=== PATIENT | male | born 1965 | race Caucasian/White ===

== ENCOUNTER 2018-05-09 23:14 | Emergency (ER) | payer OTHER ==
--- OUTSIDE RECORDS SUMMARY | 2018-05-09 23:16 | XMS REPORT | Clinical Summary ---
:1965 Author Organization [facility] Address [address] [place] [address] Phone Care Team Providers Name Role Phone Unavailable Primary Care Provider Unavailable Allergies Active Allergy Reactions Severity Noted Date Comments Naproxen Sodium Swelling 02/05/2016 Lips Current Medications Prescription Sig. Disp. Refills Start Date End Date Status carvedilol (COREG) Take 25 mg by Active 25 MG mouth 2 (two) tabletIndications: times daily with hypertension breakfast and dinner. lisinopril Take 20 mg by Active (PRINIVIL,ZESTRIL) mouth daily. 20 MG tabletIndications: hypertension furosemide (LASIX) Take 20 mg by Active 20 MG tablet mouth daily. doxycycline Take 100 mg by Active (VIBRAMYCIN) 100 MG mouth 2 (two) capsule times daily. tamsulosin (FLOMAX) Take 1 capsule 15 capsule 0 04/21/2017 Active 0.4 mg Cp24 24 hr (0.4 mg total) capsule by mouth nightly. senna-docusate Take 1 tablet by 60 tablet 0 04/17/2017 05/17/2017 (SENOKOT S) 8.6-50 mouth 2 (two) mg per tablet times daily for 30 days. Active Problems Problem Noted Date Complicated UTI (urinary tract infection) 04/16/2017 Obstruction of left ureteropelvic junction due to stone 04/16/2017 Obstructive uropathy 03/22/2016 SANTOS (acute kidney injury) (HCC) 02/06/2016 Renal stone 02/06/2016 Hydronephrosis 02/06/2016 HTN (hypertension) 02/06/2016 Septic shock (HCC) 02/05/2016 Social History Tobacco Use Types Packs/Day Years Used Date Never Smoker Smokeless Tobacco: Never Used Tobacco Cessation: Counseling Given: Yes Alcohol Use Drinks/Week oz/Week Comments Yes occasionally Sex Assigned at Date Recorded Not on file Last Filed Vital Signs Not on file Plan of Treatment Not on file Implants Implanted Type Area Library Page Device Expiration Model / Identifier Date Serial / Lot Stent Uret Ult Johnny [id number] [id number] - [id number] Stents-Pe Left: BOSTON 192-133 / Implanted: Qty: 1 on 04/01/2016 by John Guillen MD [facility] [employer] SCI:UROLOGY/GYNE / COLOGY [id number] Set Stent Injection 6x28cm 185-615 - [id number] Uro Stent Left: BOSTON 09/2019 [id number] / Implanted: Qty: 1 on 04/21/2017 by John Guillen MD [employer]: ONCOLOGY / [id number] Results Not on fileafter 05/08/2017
--- OUTSIDE RECORDS SUMMARY | 2018-05-09 23:16 | XMS REPORT | Clinical Summary ---
:1965 Author Organization [facility] Address [address] [place] [address] Care Team Providers Name Role Phone Baldev Olmos MD Primary Care Provider Unavailable Allergies Not on File Current Medications Prescription Sig. Disp. Refills Start Date End Date Status carvedilol (COREG) 12.5 MG Take 12.5 mg by Active tablet mouth 2 (two) times a day with meals. furosemide (LASIX) 20 MG Take 20 mg by Active tablet mouth 2 (two) times a day. lisinopril Take 10 mg by Active (PRINIVIL,ZESTRIL) 10 MG mouth daily. tablet meloxicam (MOBIC) 15 MG Take 15 mg by Active tablet mouth daily. Active Problems Not on file Social History Tobacco Use Types Packs/Day Years Used Date Unknown If Ever Smoked Alcohol Use Drinks/Week oz/Week Comments Defer Sex Assigned at Date Recorded Not on file Last Filed Vital Signs Not on file Plan of Treatment Health Maintenance Due Date Last Done Comments COLON CANCER SCREENING 2015 SHINGRIX VACCINE (#1) 2015 INFLUENZA VACCINE 05/12/2018 Results Not on fileafter 05/08/2017 Insurance Payer Benefit Plan / Group Subscriber ID Type Phone Address MEDICARE MEDICARE PART A AND B xxxxxxxxxx Medicare [place], [place] [facility] [phone] [address]
--- OUTSIDE RECORDS SUMMARY | 2018-05-09 23:16 | XMS REPORT ---
:1965 Author Organization eClinicalWorks Care Team Providers Name Role Phone Matilde Valencia Provider Role Unavailable Allergies, Adverse Reactions, Alerts Substance Reaction Event Type N.K.D.A. Info Not Available Non Drug Allergy Problems Problem Type Condition Code Onset Dates Condition Status Problem Hyperglycemia R73.9 Active Problem Hypertension, unspecified type I10 Active Problem Abnormal urine R82.90 Active Problem Obstructive sleep apnea G47.33 Active Assessment Peripheral edema R60.9 Active Problem Kidney stones N20.0 Active Assessment Prediabetes R73.03 Active Assessment Hyperlipidemia, unspecified E78.5 Active hyperlipidemia type Problem Skin lesion L98.9 Active Problem Hyperlipidemia, unspecified E78.5 Active hyperlipidemia type Problem Prediabetes R73.03 Active Problem Peripheral edema R60.9 Active Problem Elevated serum creatinine R79.89 Active Assessment Skin lesion L98.9 Active Assessment Kidney stones N20.0 Active Assessment Elevated serum creatinine R79.89 Active Assessment Hypertension, unspecified type I10 Active Problem Pain in right knee M25.561 Active Problem Hypokalemia E87.6 Active Problem Pain in left knee M25.562 Active Problem Hypertriglyceridemia E78.1 Active Assessment Obstructive sleep apnea G47.33 Active Problem Other chronic pain G89.29 Active Problem 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 Medications Medication Code Code Instructions Start End Status Dosage System Date Date Furosemide [facility] 27729234523 20 mg Orally Active 1 tablet as Once a day needed for swelling Mobic [facility] 53118322664 7.5 MG Orally Active 1 tablet Once a day Coreg [facility] 15254079231 25 MG Orally Active not defined Twice a day Belviq [facility] 09803356581 10 MG Orally Active 1 tablet Twice a day Lisinopril [facility] 23821762041 20 MG Active TAKE ONE TABLET BY MOUTH ONCE DAILY Gabapentin [facility] 53855703044 300 MG Orally Active 1 capsule Three times a day Ibuprofen [facility] 46672450719 400 MG Orally Active 1 tablet Three times a with food day or milk as needed Multivitamin [facility] 97806459114 - Orally Active not defined Lamisil [facility] 04769262315 250 MG Orally Active 1 tablet Once a day Results No Known Results Summary Purpose eClinicalWorks Submission
--- OUTSIDE RECORDS SUMMARY | 2018-05-09 23:17 | XMS REPORT ---
:1965 Author Organization eClinicalWorks Care Team Providers Name Role Phone Royer Valenciaen Provider Role Unavailable Allergies No Known Allergies Problems Problem Type Condition Code Onset Dates Condition Status Problem Hyperlipidemia, unspecified E78.5 Active hyperlipidemia type Problem Prediabetes R73.03 Active Problem Elevated serum creatinine R79.89 Active Problem Chronic kidney disease, unspecified N18.9 Active CKD stage Problem Pain in left knee M25.562 Active Problem Dependence on CPAP ventilation Z99.89 Active Problem Pain in right knee M25.561 Active Problem Other chronic pain G89.29 Active Problem Uncontrolled type 2 diabetes E11.65 Active mellitus without complication, without long-term current use of insulin Problem Morbid (severe) obesity due to E66.01 Active excess calories Problem Body mass index (BMI) of 40.0-44.9 Z68.41 Active in adult Problem Morbid obesity E66.01 Active Problem Obstructive sleep apnea (adult) G47.33 Active (pediatric) Problem Hypokalemia E87.6 Active Problem Hypertriglyceridemia E78.1 Active Problem Abnormal urine R82.90 Active Problem Hyperglycemia R73.9 Active Problem Obstructive sleep apnea G47.33 Active Problem Skin lesion L98.9 Active Problem 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
--- OUTSIDE RECORDS SUMMARY | 2018-05-09 23:17 | XMS REPORT ---
:1965 Author Organization [employer]Works Care Team Providers Name Role Phone Matilde Valencia Provider Role Unavailable Allergies, Adverse Reactions, Alerts Substance Reaction Event Type N.K.D.A. Info Not Available Non Drug Allergy Problems Problem Type Condition Code Onset Dates Condition Status Assessment Uncontrolled type 2 diabetes E11.65 Active mellitus without complication, without long-term current use of insulin Assessment Colon cancer screening Z12.11 Active Problem Peripheral edema R60.9 Active Assessment Well adult exam Z00.00 Active Problem Kidney stones N20.0 Active Problem Hyperlipidemia, unspecified E78.5 Active hyperlipidemia type Problem Prediabetes R73.03 Active Problem Elevated serum creatinine R79.89 Active Problem Chronic kidney disease, unspecified N18.9 Active CKD stage Problem Dependence on CPAP ventilation Z99.89 Active Problem Pain in left knee M25.562 Active Problem Pain in right knee M25.561 Active Problem Uncontrolled type 2 diabetes E11.65 Active mellitus without complication, without long-term current use of insulin Problem Other chronic pain G89.29 Active Problem Morbid (severe) obesity due to E66.01 [...] L98.9 Active Problem 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 Problem Hypertension, unspecified type I10 Active Medications Medication Code Code Instructions Start End Status Dosage System Date Date Metformin HCl [facility] 42946048498 500 MG Orally April 21, Active 1 tablet Twice daily 2017 with a meal; for diabetes Coreg ND 95805434236 25 MG Orally Active not defined Twice a day Multivitamin [facility] 30695013508 - Orally Active not defined Cardura [facility] 22496995819 1 MG Orally Selena 15, Active 1 tablet in Once a day 2018 evening for high blood pressure Belviq [facility] 85151735248 10 MG Orally Active 1 tablet Twice a day Furosemide ND 96143176395 20 mg Orally Active 1 tablet as Once a day needed for swelling Gabapentin ND 46535619052 300 MG Orally Active 1 capsule Three times a day Mobic [facility] 04257943705 7.5 MG Orally Active 1 tablet Once a day Ibuprofen ND 41922760636 400 MG Orally Active 1 tablet Three times a with food or day milk as needed Blood Glucose NDC 0 as directed April 21, Active as directed Test Strip Test BS once 2018 (DISPENSE daily BLOOD GLUCOSE TEST STRIPS FORMULARY TO INSURANCE) Lamisil [facility] 26863503213 250 MG Orally Active 1 tablet Once a day Blood Glucose NDC 0 as directed April 21, Active as directed Monitor Test BS once 2018 (DISPENSE daily BLOOD GLUCOSE MONITOR FORMULARY TO INSURANCE) Lancets [facility] 46233865461 - as directed April 21, Active as directed Test BS once 2018 (dispense daily lancets formulary to insurance) Results Name Result Date Reference Range Unit Abnormality Flag OCCULT (Guiac) BLOOD (ONE SPECIMEN) ----Occult Blood Negative [id number] Summary Purpose eClinicalWorks Submission
--- OUTSIDE RECORDS SUMMARY | 2018-05-09 23:17 | XMS REPORT ---
:1965 Author Organization [facility] Address [address] [place] [address] [address] [place] [address] Care Team Providers Name Role Phone MICAH BOSWELL Unavailable Unavailable Problems This patient has no known problems. Allergies, Adverse Reactions, Alerts This patient has no known allergies or adverse reactions. Medications This patient has no known medications. Results Test Description Test Time Test Comments Text Results Atomic Results Result Comments BLOOD CULTURE 2017-04-22 00:00:00 Test Item Value Reference Range Comments CULTURE (BEAKER) (test sdra=7541) No growth in 5 days BLOOD [id number] 00:00:00 Test Item Value Reference Range Comments CULTURE (BEAKER) (test xqhm=6103) No growth in 5 days HEMOGLOBIN [id number] 21:56:00 Test Item Value Reference Range Comments HEMOGLOBIN A1C (BEAKER) (test qfml=943) 6.7 % 4.3-6.1 T4, [id number] 12:30:00 Test Item Value Reference Range Comments FREE T4 (BEAKER) (test imkw=086) 0.74 ng/dL 0.70-1.48 TSH/FREE T4 IF [id number] 05:46:00 Test Item Value Reference Range Comments THYROID STIMULATING HORMONE (BEAKER) (test 5.17 uIU/mL 0.35-4.94 ghse=492) [id number] 05:37:00 Test Item Value Reference Range Comments FERRITIN (BEAKER) (test eqig=875) 79 ng/mL 5-275 Effective 08/29/2014: Reference Range ChangeNew: Male 5-275 Previous: Male 22-322 Female 5-275 Female [id number] NATRIURETIC FACTOR ( BNP)2017-04-17 05:22:00 Test Item Value Reference Range Comments B-TYPE NATRIURETIC PEPTIDE (BEAKER) (test qkfw=768) 23 pg/mL 0-100 IRON, TIBC, % SAT. (WITHOUT FERRITIN)2017-04-17 05:17:00 Test Item Value Reference Range Comments IRON (BEAKER) (test gmcd=739) 78 ug/dL 40-160 TOTAL IRON BINDING CAPACITY (BEAKER) (test 329 ug/dL 250-450 bekc=987) IRON % SATURATION (2) (BEAKER) (test loau=8317) 24 % 20-55 LIPID [id number] 05:12:00 Test Item Value Reference Range Comments TRIGLYCERIDES (BEAKER) (test roiv=713) 259 mg/dL CHOLESTEROL (BEAKER) (test ccmq=010) 214 mg/dL HDL CHOLESTEROL (BEAKER) (test hykm=789) 27 mg/dL LDL CHOLESTEROL CALCULATED (BEAKER) (test 135 mg/dL nduc=198) Triglyceride Reference Range: Low Risk <150 Borderline 150- 199 High Risk 200-499 Very High Risk >=500Cholesterol Reference Range: Low Risk <200 Borderline 200-239 High Risk > 240HDL Cholesterol Reference Range: Low Risk >=60 High Risk <40LDL Cholesterol Reference Range: Optimal <100 Near Optimal 100-129 Borderline 130-159 High 160-189 Very High >=190URINALYSIS W/ REFLEX URINE [id number] 00:32:00 Test Item Value Reference Range Comments COLOR (BEAKER) (test clmd=048) Yellow CLARITY (BEAKER) (test ijng=040) Clear SPECIFIC GRAVITY UA (BEAKER) (test qqns=828) 1.019 1.001-1.035 PH UA (BEAKER) (test nceq=360) 5.5 5.0-8.0 PROTEIN UA (BEAKER) (test mhjm=800) 30 mg/dL Negative GLUCOSE UA (BEAKER) (test qocd=213) Negative Negative KETONES UA (BEAKER) (test tpag=288) Negative Negative BILIRUBIN UA (BEAKER) (test vkxb=757) Negative Negative BLOOD UA (BEAKER) (test lhvw=880) Trace Negative NITRITE UA (BEAKER) (test jbqj=824) Positive Negative LEUKOCYTE ESTERASE UA (BEAKER) (test bbzc=752) Moderate Negative UROBILINOGEN UA (BEAKER) (test vttp=075) 0.2 mg/dL 0.2-1.0 RBC UA (BEAKER) (test zjko=597) 6 /HPF WBC UA (BEAKER) (test wcgn=012) 57 /HPF MUCUS (BEAKER) (test sgxt=8916) Rare SOURCE(BEAKER) (test xjvu=4113) [id number] 22:20:00 Test Item Value Reference Range Comments PROTIME (BEAKER) (test chrt=765) 13.5 seconds 11.7-14.7 INR (BEAKER) (test czhl=203) 1.0 <=5.9 PARTIAL THROMBOPLASTIN TIME (BEAKER) (test 28.5 seconds 22.5-36.0 ccse=037) RECOMMENDED COUMADIN/WARFARIN INR THERAPY RANGESSTANDARD DOSE: 2.0 - 3.0 Includes: PROPHYLAXIS forvenous thrombosis, systemic embolization; TREATMENT for venous thrombosis and/or pulmonary embolus.HIGH RISK: Target INR is 2.5-3.5 for patients with mechanical heart valves.[id number] 22:18:00 Test Item Value Reference Range Comments MAGNESIUM (BEAKER) (test dzae=611) 1.7 mg/dL 1.6-2.6 BASIC METABOLIC [id number] 22:18:00 Test Item Value Reference Range Comments SODIUM (BEAKER) (test 138 meq/L 136-145 bpgr=205) POTASSIUM (BEAKER) (test 4.0 meq/L 3.5-5.1 gsqz=287) CHLORIDE (BEAKER) (test 105 meq/L 98-107 nfaw=684) CO2 (BEAKER) (test 25 meq/L 22-29 tbwn=527) BLOOD UREA NITROGEN 23 mg/dL 7-21 (BEAKER) (test ezfv=347) CREATININE (BEAKER) (test 0.90 mg/dL 0.57-1.25 ocjf=356) GLUCOSE RANDOM (BEAKER) 130 mg/dL 70-105 (test oiwg=606) CALCIUM (BEAKER) (test 8.9 mg/dL 8.4-10.2 frph=510) EGFR (BEAKER) (test 89 mL/min/1.73 sq m ESTIMATED GFR IS NOT axvl=0849) ACCURATE CREATININE CLEARANCE IN PREDICTING GLOMERULAR FILTRATION RATE. ESTIMATED GFR IS NOT APPLICABLE FOR DIALYSIS PATIENTS. HEPATIC FUNCTION [id number] 22:18:00 Test Item Value Reference Range Comments TOTAL PROTEIN (BEAKER) (test dtug=533) 7.2 gm/dL 6.0-8.3 ALBUMIN (BEAKER) (test cicg=9537) 3.8 g/dL 3.5-5.0 BILIRUBIN TOTAL (BEAKER) (test imod=781) 0.5 mg/dL 0.2-1.2 BILIRUBIN DIRECT (BEAKER) (test tjuo=214) 0.2 mg/dL 0.1-0.5 ALKALINE PHOSPHATASE (BEAKER) (test istw=181) 81 U/L 40-150 AST (SGOT) (BEAKER) (test yzat=456) 20 U/L 5-34 ALT (SGPT) (BEAKER) (test etfs=448) 22 U/L 6-55 CBC W/PLT COUNT & AUTO [id number] 22:12:00 Test Item Value Reference Range Comments WHITE BLOOD CELL COUNT (BEAKER) (test pkez=802) 9.6 K/ L 4.0-10.0 RED BLOOD CELL COUNT (BEAKER) (test xigu=862) 4.54 M/ L 4.20-5.80 HEMOGLOBIN (BEAKER) (test qnmp=689) 14.5 GM/DL 13.0-16.8 HEMATOCRIT (BEAKER) (test ivfy=757) 44.2 % 40.0-50.0 MEAN CORPUSCULAR VOLUME (BEAKER) (test mbfq=127) 97.3 fL 82.0-98.0 MEAN CORPUSCULAR HEMOGLOBIN (BEAKER) (test 32.0 pg 27.0-33.0 vqgc=317) MEAN CORPUSCULAR HEMOGLOBIN CONC (BEAKER) (test 32.9 GM/DL 32.0-36.0 souu=271) RED CELL DISTRIBUTION WIDTH (BEAKER) (test 12.1 % 10.3-14.2 dmre=768) PLATELET COUNT (BEAKER) (test tiwb=921) 214 K/CU MM 150-430 MEAN PLATELET VOLUME (BEAKER) (test vwmv=536) 7.9 fL 6.5-10.5 NUCLEATED RED BLOOD CELLS (BEAKER) (test 0 /100 WBC 0-0 bnnd=493) NEUTROPHILS RELATIVE PERCENT (BEAKER) (test 66 % ovhp=930) LYMPHOCYTES RELATIVE PERCENT (BEAKER) (test 19 % frbr=388) MONOCYTES RELATIVE PERCENT (BEAKER) (test 6 % bndj=347) EOSINOPHILS RELATIVE PERCENT (BEAKER) (test 9 % jhjc=382) BASOPHILS RELATIVE PERCENT (BEAKER) (test 0 % mysm=652) NEUTROPHILS ABSOLUTE COUNT (BEAKER) (test 6.32 K/ L 1.80-8.00 kvdf=505) LYMPHOCYTES ABSOLUTE COUNT (BEAKER) (test 1.80 K/ L 1.48-4.50 dycj=858) MONOCYTES ABSOLUTE COUNT (BEAKER) (test 0.62 K/ L 0.00-1.30 xprq=950) EOSINOPHILS ABSOLUTE COUNT (BEAKER) (test 0.86 K/ L 0.00-0.50 swry=525) BASOPHILS ABSOLUTE COUNT (BEAKER) (test 0.02 K/ L 0.00-0.20 qqqv=259) 0.00
--- OUTSIDE RECORDS SUMMARY | 2018-05-09 23:17 | XMS REPORT ---
:1965 Author Organization eClinicalWorks Care Team Providers Name Role Phone Matilde Valencia Provider Role Unavailable Allergies No Known Allergies Problems Problem Type Condition Code Onset Dates Condition Status Assessment Body mass index (BMI) of 40.0-44.9 Z68.41 Active in adult Assessment Morbid (severe) obesity due to E66.01 Active excess calories Assessment Dependence on CPAP ventilation Z99.89 Active Assessment Obstructive sleep apnea (adult) G47.33 Active (pediatric) Assessment Hyperlipidemia, unspecified E78.5 Active hyperlipidemia type Assessment Prediabetes R73.03 Active Assessment Peripheral edema R60.9 Active Problem Peripheral edema R60.9 Active Assessment Chronic kidney disease, unspecified N18.9 Active CKD stage Problem Kidney stones N20.0 Active Assessment Hypertension, unspecified type I10 Active Problem Hyperlipidemia, unspecified E78.5 Active hyperlipidemia type Problem Prediabetes R73.03 Active Problem Elevated serum creatinine R79.89 Active Problem Obstructive sleep apnea (adult) G47.33 Active (pediatric) Problem Morbid (severe) obesity due to E66.01 Active excess calories Problem Pain in right knee M25.561 Active Problem Other chronic pain G89.29 Active Problem Morbid obesity E66.01 Active Assessment Hives L50.9 Active Problem Dependence on CPAP ventilation Z99.89 Active Problem Hypertension, unspecified type I10 Active Problem Body mass index (BMI) of 40.0-44.9 Z68.41 Active in adult Problem Chronic kidney disease, unspecified N18.9 Active CKD stage Problem Hyperglycemia R73.9 Active Problem Hypokalemia E87.6 Active Problem Pain in left knee M25.562 Active Problem Abnormal urine R82.90 Active Problem Obstructive sleep apnea G47.33 Active Problem Skin lesion L98.9 Active Problem Hypertriglyceridemia E78.1 Active Problem 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 Medications Medication Code Code Instructions Start End Status Dosage System Date Date Mobic ND 01435982740 7.5 MG Orally Active 1 tablet Once a day Ibuprofen NDC 01037497351 400 MG Orally Active 1 tablet Three times a with food day or milk as needed Cardura [facility] 00701670330 1 MG Orally March 26, Active 1 tablet in Once a day 2017 evening for high blood pressure Lisinopril [facility] 92918744673 20 MG Inactive TAKE ONE TABLET BY MOUTH ONCE DAILY Multivitamin [facility] 41249410211 - Orally Active not defined Lamisil [facility] 07697452434 250 MG Orally Active 1 tablet Once a day Gabapentin [facility] 93472879725 300 MG Orally Active 1 capsule Three times a day Furosemide [facility] 40069886419 20 mg Orally Active 1 tablet as Once a day needed for swelling Coreg [facility] 28564742563 25 MG Orally Active not defined Twice a day Belviq [facility] 92886258423 10 MG Orally Active 1 tablet Twice a day Results No Known Results Summary Purpose eClinicalWorks Submission
[2018-05-09] MEDS ORDERED: METHYLPREDNISOLONE 125 MG INJ ONE (23:39)
[2018-05-09] MEDS ORDERED: ALBUTEROL 2.5 MG/3 ML NEB SOL ONE (23:39)
[2018-05-09] MEDS ORDERED: FAMOTIDINE 20 MG/2 ML VIAL IV ONE (23:40)
[2018-05-10 00:14] LABS: Absolute Lymphocytes (CBC) 2.7 K/uL (0.7-4.9); Absolute Monocytes 0.6 K/uL (0.1-1.3); Absolute Neutrophil 5.3 K/uL (1.8-8.0); Basophils % 1.1 % (0-1.3); Eosinophils % 8.1 % (0-4.4); Hematocrit 42.8 % (39.6-49.0); Lymphocytes % 28.2 % (15.3-44.8); MCH 31.2 pg (27.0-35.0); MCV 92.2 fL (80-100); Monocytes % 6.8 % (3.3-12.3); RBC Red Blood Cell Count 4.64 M/uL (4.33-5.43)
[2018-05-10 00:23] LABS: Potassium 3.6 mmol/L (3.5-5.1)
--- NOTE | 2018-05-10 01:20 | EDPHYS ---
Physician Documentation [facility] Name: Abebe Marquez Age: 52 yrs Sex: Male : 1965 Arrival Date: 05/09/2018 Time: 23:17 Bed 2 Private MD: ED Physician Rip Rashid HPI: 05/10 00:59 This 52 yrs old Male presents to ER via EMS with complaints of Allergic gs Reaction. 00:59 The patient presents with chest pain, difficulty swallowing, rash, redness of skin. gs Onset: The symptoms/episode began/occurred acutely, 2 hour(s) ago. Associated signs and symptoms: Pertinent positives: chest pain, dysphagia. Historical: - Allergies: 05/09 23:26 Aleve; fc - Home Meds: 23:26 carvedilol 25 mg Oral tab 1 tab every 12 hours [Active]; furosemide 20 mg Oral tab 1 fc tab 2 times per day [Active]; meloxicam 7.5 mg Oral tab 1-2 tabs PRN [Active]; - PMHx: 23:26 Hypertension; Kidney stones; Atrial Fib; swelling of legs; fc - PSHx: 23:26 kidney surg; fc - Immunization history:: Last tetanus immunization: up to date. - Social history:: Smoking status: Patient/guardian denies using tobacco. - Ebola Screening: : Patient negative for fever greater than or equal to 101.5 degrees Fahrenheit, and additional compatible Ebola Virus Disease symptoms Patient denies exposure to infectious person Patient denies travel to an Ebola-affected area in the 21 days before illness onset. ROS: 05/10 01:12 All other systems are negative. gs Exam: 01:12 Head/Face: Normocephalic, atraumatic. Eyes: Pupils equal round and reactive to light, gs extra-ocular motions intact. Lids and lashes normal. Conjunctiva and sclera are non-icteric and not injected. Cornea within normal limits. Periorbital areas with no swelling, redness, or edema. 01:12 Neck: Trachea midline, no thyromegaly or masses palpated, and no cervical lymphadenopathy. Supple, full range of motion without nuchal rigidity, or vertebral point tenderness. No Meningismus. Chest/axilla: Normal chest wall appearance and motion. Nontender with no deformity. No lesions are appreciated. Cardiovascular: Regular rate and rhythm with a normal S1 and S2. No gallops, murmurs, or rubs. Normal PMI, no JVD. No pulse deficits. 01:12 Abdomen/GI: Soft, non-tender, with normal bowel sounds. No distension or tympany. No guarding or rebound. No evidence of tenderness throughout. Back: No spinal tenderness. No costovertebral tenderness. Full range of motion. MS/ Extremity: Pulses equal, no cyanosis. Neurovascular intact. Full, normal range of motion. Neuro: Awake and alert, GCS 15, oriented to person, place, time, and situation. Cranial nerves II-XII grossly intact. Motor strength 5/5 in all extremities. Sensory grossly intact. Cerebellar exam normal. Normal gait. 01:12 Constitutional: The patient appears alert, awake. 01:12 ENT: Voice: mild. 01:12 ECG was reviewed by the Attending Physician. 01:12 Respiratory: the patient does not display signs of respiratory distress, Respirations: normal, Breath sounds: are clear throughout, stridor, is not appreciated. 01:12 Skin: rash a mild rash is noted, rash can be described as erythematous, diffuse. Vital Signs: 05/09 23:17 BP 134 / 80; Pulse 69; Resp 20; Temp 97.6(O); Pulse Ox 92% on R/A; Weight 127.01 kg fc (R); Height 5 ft. 11 in. (180.34 cm) (R); Pain 0/10; 05/10 00:07 BP 126 / 66; Pulse 62; Resp 18; Pulse Ox 94% on 2 lpm NC; Pain 0/10; aa1 01:08 BP 134 / 84; Pulse 60; Resp 16; Pulse Ox 94% on 2 lpm NC; Pain 0/10; aa1 05/09 23:17 Body Mass Index 39.05 (127.01 kg, 180.34 cm) MDM: 05/09 23:23 Patient medically screened. 05/10 01:12 Differential diagnosis: anaphylaxis, angioedema, bronchospasm, mi. Data reviewed: vital signs, nurses notes. Response to treatment: the patient's symptoms have markedly improved after treatment, voice hoarseness resolved. 05/09 23:26 Order name: Basic Metabolic Panel; Complete Time: 00:56 05/09 23:26 Order name: CBC with Diff; Complete Time: 00:56 05/09 23:26 Order name: Troponin (emerg Dept Use Only); Complete Time: 00:56 05/09 23:26 Order name: XRAY Chest (1 view) 05/09 23:26 Order name: EKG; Complete Time: 23:27 05/09 23:26 Order name: Cardiac monitoring; Complete Time: 23:31 05/09 23:26 Order name: EKG - Nurse/Tech; Complete Time: 00:10 05/09 23:26 Order name: IV Saline Lock; Complete Time: : 05/09 23:26 Order name: Labs collected and sent; Complete Time: 00:10 05/09 23:26 Order name: O2 Per Protocol; Complete Time: 05/09 23: Order name: O2 Sat Monitoring; Complete Time: : EC:12 Rate is 61 beats/min. Rhythm is regular. AR interval is normal. QRS interval is gs prolonged. T waves are Normal. No ST changes noted. Clinical impression: Abnormal EKG without significant change. Interpreted by me. Administered Medications: 05/09 23:38 Drug: Albuterol 2.5 mg Route: Inhalation; aa1 23:38 Drug: SOLU-Medrol 125 mg Route: IVP; Site: right antecubital; aa1 23:38 Drug: Pepcid 20 mg Route: IVP; Site: right antecubital; aa1 Disposition: 05/10/18 01:19 Discharged to Home. Impression: acute allergic reaction. - Condition is Stable. - Discharge Instructions: Allergy Skin Testing. - Prescriptions for Pepcid 20 mg Oral Tablet - take 1 tablet by ORAL route every 12 hours for 5 days; 10 tablet. Prednisone 20 mg Oral Tablet - take 1 tablet by ORAL route once daily for 5 days; 5 tablet. - Medication Reconciliation Form, Thank You Letter, Antibiotic Education, Prescription Opioid Use form. - Follow up: Emergency Department; When: 1 - 2 days; Reason: Re-evaluation by your physician. Signatures: Dispatcher [employer] EDMS Jacquelin Cohen RN RN aa1 Nory Todd RN RN fc Starr, Gregory, MD MD Corrections: (The following items were deleted from the chart) 05/10 01:18 01:12 Abdomen/GI: Soft, non-tender, with normal bowel sounds. No distension or tympany. gs No guarding or rebound. No evidence of tenderness throughout. Back: No spinal tenderness. No costovertebral tenderness. Full range of motion. Skin: Warm, dry with normal turgor. Normal color with no rashes, no lesions, and no evidence of cellulitis. MS/ Extremity: Pulses equal, no cyanosis. Neurovascular intact. Full, normal range of motion. Neuro: Awake and alert, GCS 15, oriented to person, place, time, and situation. Cranial nerves II-XII grossly intact. Motor strength 5/5 in all extremities. Sensory grossly intact. Cerebellar exam normal. Normal gait. 01:36 01:19 05/10/2018 01:19 Discharged to Home. Impression: acute allergic reaction. aa1 Condition is Stable. Forms are Medication Reconciliation Form, Thank You Letter, Antibiotic Education, Prescription Opioid Use. Follow up: Emergency Department; When: 1 - 2 days; Reason: Re-evaluation by your physician.
--- NOTE | 2018-05-10 01:20 | ER ---
Nurse's Notes [facility] Name: Abebe Marquez Age: 52 yrs Sex: Male : 1965 Arrival Date: 05/09/2018 Time: 23:17 Bed 2 Private MD: Diagnosis: acute allergic reaction Presentation: 05/09 23:17 Presenting complaint: EMS states: that they were toned for allergic reaction. Pt has fc been having outward hives on and off for approx 3 month; has been treated by multiple drs and they still are not sure what is causing the problem. Tonight pt started to feel the hives in his throat and had some chest discomfort. EMS vitals 130/76, heart rate of 76, sats of 98%. Transition of care: patient was not received from another setting of care. Onset: The symptoms/episode began/occurred suddenly. Anaphylaxis evaluation, the patient reports or I have noted the following symptoms which indicate a significant risk of anaphylaxis: chest pain [employer] REPRESENTATIVE that has gone away. Onset of symptoms was May 09, 2018 at 22:45. Risk Assessment: Do you want to hurt yourself or someone else? Patient reports no desire to harm self or others. Initial Sepsis Screen: Does the patient meet any 2 criteria? No. Patient's initial sepsis screen is negative. Does the patient have a suspected source of infection? No. Patient's initial sepsis screen is negative. Care prior to arrival: Medication(s) given: Normal saline infusion, 250 ml Benadryl 50 mg ivp IV initiated. 20 GA, in the left antecubital area. 23:17 Method Of Arrival: EMS: [facility] 23:17 Acuity: ANUJA 2 fc Historical: - Allergies: 23:26 Aleve; fc - Home Meds: 23:26 carvedilol 25 mg Oral tab 1 tab every 12 hours [Active]; furosemide 20 mg Oral tab 1 fc tab 2 times per day [Active]; meloxicam 7.5 mg Oral tab 1-2 tabs PRN [Active]; - PMHx: 23:26 Hypertension; Kidney stones; Atrial Fib; swelling of legs; fc - PSHx: 23:26 kidney surg; fc - Immunization history:: Last tetanus immunization: up to date. - Social history:: Smoking status: Patient/guardian denies using tobacco. - Ebola Screening: : Patient negative for fever greater than or equal to 101.5 degrees Fahrenheit, and additional compatible Ebola Virus Disease symptoms Patient denies exposure to infectious person Patient denies travel to an Ebola-affected area in the 21 days before illness onset. Screenin:20 Abuse screen: Denies threats or abuse. Denies injuries from another. Nutritional aa1 screening: No deficits noted. Tuberculosis screening: No symptoms or risk factors identified. Fall Risk None identified. Assessment: 23:20 General: Appears in no apparent distress. comfortable, Behavior is calm, cooperative, aa1 appropriate for age. Pain: Denies pain. Neuro: Level of Consciousness is awake, alert, obeys commands, Oriented to person, place, time, situation, Moves all extremities. Speech is normal. Cardiovascular: Heart tones S1 S2 present Rhythm is regular. Respiratory: Reports shortness of breath at rest Airway is patent Respiratory effort is even, unlabored, Respiratory pattern is regular, symmetrical, Breath sounds are clear bilaterally. the patient has mild shortness of breath. GI: No signs and/or symptoms were reported involving the gastrointestinal system. : No signs and/or symptoms were reported regarding the genitourinary system. EENT: Throat is clear. Derm: Skin is intact, is healthy with good turgor, Skin is pink, warm \T\ dry. generalized erythema noted. Musculoskeletal: Circulation, motion, and sensation intact. Capillary refill < 3 seconds. 05/10 00:30 Reassessment: Patient appears in no apparent distress at this time. Patient and/or aa1 family updated on plan of care and expected duration. Pain level reassessed. Patient is alert, oriented x 3, equal unlabored respirations, skin warm/dry/pink. Awaiting provider reassessment Patient states feeling better. Patient states symptoms have improved. 01:35 Reassessment: Patient appears in no apparent distress at this time. Patient is alert, aa1 oriented x 3, equal unlabored respirations, skin warm/dry/pink. Discussed d/c \T\ f/u instructions with pt \T\ spouse; denies questions or concerns at this time Patient denies pain at this time. Vital Signs: 05/09 23:17 BP 134 / 80; Pulse 69; Resp 20; Temp 97.6(O); Pulse Ox 92% on R/A; Weight 127.01 kg fc (R); Height 5 ft. 11 in. (180.34 cm) (R); Pain 0/10; 05/10 00:07 BP 126 / 66; Pulse 62; Resp 18; Pulse Ox 94% on 2 lpm NC; Pain 0/10; aa1 01:08 BP 134 / 84; Pulse 60; Resp 16; Pulse Ox 94% on 2 lpm NC; Pain 0/10; aa1 05/09 23:17 Body Mass Index 39.05 (127.01 kg, 180.34 cm) ED Course: 05/09 23:17 Patient arrived in ED. fc 23:17 Rip Rashid MD is Attending Physician. gs 23:17 Arm band placed on Patient placed in an exam room, on a stretcher. 23:19 Jacquelin Cohen, CHRISTIAN is Primary Nurse. aa1 23:20 Patient has correct armband on for positive identification. Bed in low position. Call aa1 light in reach. Side rails up X2. hall monitor on. Pulse ox on. NIBP on. 23:22 Triage completed. fc 23:37 X-ray completed. Portable x-ray completed in exam room. Patient tolerated procedure kw well. 23:37 XRAY Chest (1 view) In Process Unspecified. EDMS 23:40 EKG done, by ED staff, reviewed by Rip Rashid MD. aa1 23:50 Initial lab(s) drawn, by de, sent to lab. Maintain EMS IV. Dressing intact. Good blood aa1 return noted. Site clean \T\ dry. Gauge \T\ site: 20g RAC. 05/10 00:05 Oxygen administration via nasal cannula \T\ 2L/min O2 via pt reports hx of sleep apnea aa1 and usually wears CPAP with O2 at home. Pt placed on O2 per his request. 01:35 No provider procedures requiring assistance completed. IV discontinued, intact, aa1 bleeding controlled, No redness/swelling at site. Pressure dressing applied. Administered Medications: 05/09 23:38 Drug: Albuterol 2.5 mg Route: Inhalation; aa1 23:38 Drug: SOLU-Medrol 125 mg Route: IVP; Site: right antecubital; aa1 23:38 Drug: Pepcid 20 mg Route: IVP; Site: right antecubital; aa1 Outcome: 05/10 01:19 Discharge ordered by . gs 01:35 Discharged to home ambulatory, with significant other. aa1 01:35 Condition: good 01:35 Discharge instructions given to patient, significant other, Instructed on discharge instructions, follow up and referral plans. medication usage, Demonstrated understanding of instructions, follow-up care, medications, Prescriptions given X 2. 01:36 Patient left the ED. aa1 Signatures: Dispatcher [employer] EDMS Jacquelin Cohen RN RN aa1 Nory Todd RN RN fc Whitley, Kimberlee kw Starr, Gregory, MD MD gs
--- NOTE | 2018-05-10 07:52 | EKG ---
Test Date: 2018-05-09 Test Time: 23:49:17 Log Truck Driver: IZABEL MEASUREMENT RESULTS: Intervals: Rate: 61 MS: 180 QRSD: 116 QT: 430 QTc: 432 [place]: P: 28 MS: 180 QRS: -20 T: 7 INTERPRETIVE STATEMENTS: Normal sinus rhythm Incomplete right bundle branch block Borderline ECG Compared to ECG 02/04/2016 10:29:54 Incomplete right bundle-branch block now present Left ventricular hypertrophy no longer present Electronically Signed On 05-10-18 07:51:47 CDT by Negro Trujillo
--- NOTE | 2018-05-10 09:38 | RAD REPORT ---
EXAM DESCRIPTION: RAD - Chest Single View - 05/09/2018 11:40 pm CLINICAL HISTORY: Allergic reaction, chest pain, shortness of breath COMPARISON: January 2016 TECHNIQUE: AP portable chest image was obtained 2328 hours . FINDINGS: Lungs are clear. Heart and vasculature are normal. No measurable pleural effusion and no p neumothorax. No gross bony abnormality seen. No acute aortic findings suspected. IMPRESSION: No acute cardiopulmonary process. No suspicious change from comparison.
== END 2018-05-10 01:36 | disposition home or self-care (01) ==
LOC: ER 23:14
DX: T78.49XA Other allergy, initial encounter (principal); I10 Essential (primary) hypertension; X58.XXXA Exposure to other specified factors, initial encounter; Z88.8 Allergy status to other drugs, medicaments and biological substances
CPT/HCPCS: 36415; 71045; 80048; 84484; 85025; 93005; 96374; 96375; 99285; J2930

== ENCOUNTER 2020-02-06 21:42 | Emergency (ER) | payer OTHER, SELFPAY ==
--- OUTSIDE RECORDS SUMMARY | 2020-02-06 21:46 | XMS REPORT ---
:1965 Author Organization [employer] Care Team Providers Name Role Phone Matilde Valencia Provider Role Unavailable Allergies, Adverse Reactions, Alerts Substance Reaction Event Type Aleve Lip swelling Drug Allergy Problems Problem Type Condition Code Onset Dates Condition Statu s Assessment Obstructive sleep apnea (adult) G47.33 Active (pediatric) Assessment Dependence on CPAP ventilation Z99.89 Active Assessment Chronic kidney disease, unspecified N18.9 Active CKD stage Assessment Hyperlipidemia, unspecified E78.5 Active hyperlipidemia type Assessment Type 2 diabetes mellitus with E11.21 Active diabetic nephropathy Assessment Essential hypertension I10 Activ e Problem Pain in left knee M25.562 Active Problem Pain in right knee M25.561 Active Problem Other chronic pain G89.29 Active Problem Morbid (severe) obesity due to E66.01 Active excess calories Problem Obstructive sleep apnea (adult) G47.33 Active (pediatric) Problem Hyperglycemia R73.9 Active Problem Dependence on CPAP ventilation Z99.89 Active Problem Morbid obesity E66.01 Active Problem Chronic kidney disease, unspecified N18.9 Active CKD stage Problem Hypoxia R09.02 Active Problem Type 2 diabetes mellitus with E11.21 Active diabetic nephropathy Problem 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 Problem Hypertriglyceridemia E78.1 Active Problem Essential hypertension I10 Activ e Problem Hypokalemia E87.6 Active Problem On supplemental oxygen therapy Z99.81 Active Problem Body mass index (BMI) of 40.0-44.9 Z68.41 Active in adult Problem Type 2 diabetes mellitus with E11.65 Active hyperglycemia Problem Obesity (BMI 30-39.9) E66.9 Active Assessment Pain in right knee M25.561 Active Problem Kidney stones N20.0 Active Assessment Obesity (BMI 30-39.9) E66.9 Active Problem Prediabetes R73.03 Active Problem Abnormal urine R82.90 Active Problem Peripheral edema R60.9 Active Problem Hyperlipidemia, unspecified E78.5 Active hyperlipidemia type Problem Elevated serum creatinine R79.89 Ac tive Problem Obstructive sleep apnea G47.33 Acti ve Problem Skin lesion L98.9 Active Medications Medication Code Code Instructions Start End Date Status Dosage System Date Multivitamin [facility] [id number] - Orally Active not de fined Mobic ND 46488607268 7.5 MG Orally Active 1 tabl et Once a day Lancets ND 03617598789 - as directed April 21, Active as di rected Test BS once 2018 (dispense daily lancets formulary to insurance) Blood Glucose NDC 0 as directed April 21, Active as d irected Test Strip Test BS once 2018 (DISPENS E daily BLOOD GLUCOSE TEST STRIPS FORMULARY TO INSURANCE) Lamisil ND 54641542514 250 MG Orally Active 1 tabl et Once a day Belviq [facility] 48251947897 10 MG Orally Active 1 table t Twice a day Metformin HCl ND 79859675670 500 MG Orally April 21, Active 1 tablet Twice daily 2017 with a meal; for diabetes Ibuprofen ND 07507433212 400 MG Orally Active 1 ta blet Three times a with food day or milk as needed Blood Glucose ND 0 as directed April 21, Active as d irected Monitor Test BS once 2017 (DISPENSE daily BLOOD GLUCOSE MONITOR FORMULARY TO INSURANCE) Gabapentin [facility] 56871671759 300 MG Orally Active 1 c apsule Three times a day Cardura ND 37413042488 1 MG Orally March 26, Active 1 table t in Once a day 2017 evening for high blood pressure Lisinopril ND 30876306864 20 mg Orally Active 1 ta blet Once daily Furosemide ND 17094722158 20 mg Orally Active 1 ta blet as Once a day needed for swelling Coreg ND 82316470929 25 mg Orally Active 1 table t Twice a day Flomax ND 98488582536 0.4 MG Orally Aug 04December Active 1 caps ule Once a day 2017 Results No Known Results Summary Purpose [employer] Submission
--- OUTSIDE RECORDS SUMMARY | 2020-02-06 21:46 | XMS REPORT ---
:1965 Author Organization [facility] t Address [address] [place] [address] Care Team Providers Name Role Phone JOSSELIN BOSWELL Unavailable Unavailable Problems Condition Condition Condition Status Onset Resolution Last Treatin g Comments Name Details Category Date Date Treatment Clinician Date Hyperglycem Hyperglycem Problem Active ia ia Essential Essential Problem Active hypertensio hypertensio n n Abnormal Abnormal Problem Active urine urine Obstructive Obstructive Problem Active sleep apnea sleep apnea Peripheral Peripheral Problem Active edema edema Kidney Kidney Problem Active stones stones Prediabetes Prediabetes Problem Active Hyperlipide Hyperlipide Problem Active jacinto, jacinto, unspecified unspecified hyperlipide hyperlipide jacinto type jacinto type Skin lesion Skin lesion Problem Active Elevated Elevated Problem Active serum serum creatinine creatinine Pain in Pain in Problem Active right knee right knee Hypokalemia Hypokalemia Problem Active Pain in Pain in Problem Active left knee left knee Hypertrigly Hypertrigly Problem Active ceridemia ceridemia Other Other Problem Active chronic chronic pain pain Eosinophili Eosinophili Problem Active a a Body mass Body mass Problem Active index (BMI) index (BMI) of of 40.0-44.9 40.0-44.9 in adult in adult Morbid Morbid Problem Active (severe) (severe) obesity due obesity due to excess to excess calories calories Dependence Dependence Problem Active on CPAP on CPAP ventilation ventilation Chronic Chronic Problem Active kidney kidney disease, disease, unspecified unspecified CKD stage CKD stage Type 2 Type 2 Problem Active diabetes diabetes mellitus mellitus with with hyperglycem hyperglycem ia ia Hypoxia Hypoxia Problem Active 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 Clinician (SIG) Name Name Lisinopril Lisinopril Yes Matilde 1 tablet Millender Coreg Coreg Yes Matilde 1 tablet Millender Gabapentin Gabapentin Yes Matilde 1 capsule Millender as needed for pain Encounters Start End Encounter Admission Attending Care Care Encounter Date/Time Date/Time Type Type Clinicians Facility Department ID 2019-12-29 2019-12-29 [facility] [id number] 14:20:00 14:20:00 [facility] 2019-11-09 2019-11-09 [facility] [id number] 08:45:00 08:45:00 [facility] 2019-09-22 2019-09-22 [facility] [id number] 08:00:00 08:00:00 [facility] 2019-09-14 2019-09-14 [facility] [id number] 15:33:00 15:33:00 [facility] 2019-04-04 2019-04-04 [facility] [id number] 09:00:00 09:00:00 [facility] 2019-03-25 2019-03-25 [facility] [id number] 14:39:00 14:39:00 [facility] 2019-03-23 2019-03-23 [facility] [id number] 15:00:00 15:00:00 [facility] 2018-12-11 2018-12-11 [facility] [id number] 11:48:00 11:48:00 [facility] 2018-12-08 2018-12-08 [facility] [id number] 14:45:00 14:45:00 [facility] 2018-11-30 2018-11-30 [facility] [id number] 16:46:00 16:46:00 [facility] 2018-09-23 2018-09-23 [facility] [id number] 11:45:00 11:45:00 [facility] 2018-04-26 2018-04-26 [facility] [id number] 20:50:00 20:50:00 [facility] 2018-04-21 2018-04-21 [facility] [id number] 14:30:00 14:30:00 [facility] 2018-03-26 2018-03-26 [facility] [id number] 14:30:00 14:30:00 [facility] 2018-01-19 2018-01-19 [facility] [id number] 13:30:00 13:30:00 [facility] Results Test Description Test Time Test Comments Text Results Atomic Results Result Comments BLOOD CULTURE 2017-04-22 00:00:00 Test Item Value Reference Range Comments CULTURE (BEAKER) (test code = 1095) No growth in 5 days BLOOD [id number] 00:00:00 Test Item Value Reference Range Comments CULTURE (BEAKER) (test code = 1095) No growth in 5 days HEMOGLOBIN [id number] 21:56:00 Test Item Value Reference Range Comments HEMOGLOBIN A1C (BEAKER) (test code = 368) 6.7 % 4.3-6. 1 T4, [id number] 12:30:00 Test Item Value Reference Range Comments FREE T4 (BEAKER) (test code = 655) 0.74 ng/dL 0.70-1.48 TSH/FREE T4 IF [id number] 05:46:00 Test Item Value Reference Range Comments THYROID STIMULATING HORMONE (BEAKER) (test code 5.17 uIU/mL 0.35-4.94 = 772) [id number] 05:37:00 Test Item Value Reference Range Comments FERRITIN (BEAKER) (test code = 361) 79 ng/mL 5-275 Effective 08/29/2014: Reference Range ChangeNew: Male 5-275 Previous: Male 22-322 Female 5-275 Female 67-720C-CFVM NATRIURETIC FACTOR (BNP)2017-04-17 05:22:00 Test Item Value Reference Range Comments B-TYPE NATRIURETIC PEPTIDE (BEAKER) (test code = 23 pg/mL 0-100 700) IRON, TIBC, % SAT. (WITHOUT FERRITIN)2017-04-17 05:17:00 Test Item Value Reference Range Comments IRON (BEAKER) (test code = 547) 78 ug/dL 40-160 TOTAL IRON BINDING CAPACITY (BEAKER) (test code = 329 ug/dL 250-450 769) IRON % SATURATION (2) (BEAKER) (test code = 2590) 24 % 20-55 LIPID [id number] 05:12:00 Test Item Value Reference Range Comments TRIGLYCERIDES (BEAKER) (test code = 540) 259 mg/dL CHOLESTEROL (BEAKER) (test code = 631) 214 mg/dL HDL CHOLESTEROL (BEAKER) (test code = 976) 27 mg/dL LDL CHOLESTEROL CALCULATED (BEAKER) (test code = 135 mg/dL 633) Triglyceride Reference Range: Low Risk <150 Borderline 150-199 High Risk 200-499 Very High Risk >=500Cholesterol Reference Range: Low Risk <200 Borderline 200-239 High Risk >240HDL Cholesterol Reference Range: Low Risk >=60 High Risk <40LDL Cholesterol Reference Range: Optimal <100 Near Optimal 100-129 Borderline 130-159 High 160-189 Very High >=190URINALYSIS W/ REFLEX URINE [id number] 00:32:00 Test Item Value Reference Range Comments COLOR (BEAKER) (test code = 470) Yellow CLARITY (BEAKER) (test code = 469) Clear SPECIFIC GRAVITY UA (BEAKER) (test code = 468) 1.019 1 .001-1.035 PH UA (BEAKER) (test code = 467) 5.5 5.0-8.0 PROTEIN UA (BEAKER) (test code = 464) 30 mg/dL Negative GLUCOSE UA (BEAKER) (test code = 365) Negative Negative KETONES UA (BEAKER) (test code = 371) Negative Negative BILIRUBIN UA (BEAKER) (test code = 462) Negative Negative BLOOD UA (BEAKER) (test code = 461) Trace Negative NITRITE UA (BEAKER) (test code = 465) Positive Negative LEUKOCYTE ESTERASE UA (BEAKER) (test code = 466) Moderate Negative UROBILINOGEN UA (BEAKER) (test code = 463) 0.2 mg/dL 0.2-1 .0 RBC UA (BEAKER) (test code = 519) 6 /HPF WBC UA (BEAKER) (test code = 520) 57 /HPF MUCUS (BEAKER) (test code = 1574) Rare SOURCE(BEAKER) (test code = 2795) [id number] 22:20:00 Test Item Value Reference Range Comments PROTIME (BEAKER) (test code = 759) 13.5 seconds 11.7-14.7 INR (BEAKER) (test code = 370) 1.0 <=5.9 PARTIAL THROMBOPLASTIN TIME (BEAKER) (test code 28.5 seconds 22.5-36.0 = 760) RECOMMENDED COUMADIN/WARFARIN INR THERAPY RANGESSTANDARD DOSE: 2.0 - 3.0 Includes: PROPHYLAXIS forvenous thrombosis, systemic embolization; TREATMENT for venous thrombosis and/or pulmonary embolus.HIGH RISK: Target INR is 2.5-3.5 for patients with mechanical heart valves.[id number] 22:18:00 Test Item Value Reference Range Comments MAGNESIUM (BEAKER) (test code = 627) 1.7 mg/dL 1.6-2.6 BASIC METABOLIC [id number] 22:18:00 Test Item Value Reference Range Comments SODIUM (BEAKER) (test 138 meq/L 136-145 code = 381) POTASSIUM (BEAKER) (test 4.0 meq/L 3.5-5.1 code = 379) CHLORIDE (BEAKER) (test 105 meq/L 98-107 code = 382) CO2 (BEAKER) (test code = 25 meq/L 22-29 355) BLOOD UREA NITROGEN 23 mg/dL 7-21 (BEAKER) (test code = 354) CREATININE (BEAKER) (test 0.90 mg/dL 0.57-1.25 code = 358) GLUCOSE RANDOM (BEAKER) 130 mg/dL 70-105 (test code = 652) CALCIUM (BEAKER) (test 8.9 mg/dL 8.4-10.2 code = 697) EGFR (BEAKER) (test code 89 mL/min/1.73 sq m EST IMATED GFR IS NOT = 1092) ACCURATE CREA TININE CLEARANCE IN PRE DICTING GLOMERULAR FILTR ATION RATE. ESTIMATED GFR IS NOT APPLICABLE F OR DIALYSIS PATIENT S. HEPATIC FUNCTION [id number] 22:18:00 Test Item Value Reference Range Comments TOTAL PROTEIN (BEAKER) (test code = 770) 7.2 gm/dL 6.0-8.3 ALBUMIN (BEAKER) (test code = 1145) 3.8 g/dL 3.5-5.0 BILIRUBIN TOTAL (BEAKER) (test code = 377) 0.5 mg/dL 0.2-1 .2 BILIRUBIN DIRECT (BEAKER) (test code = 706) 0.2 mg/dL 0.1- 0.5 ALKALINE PHOSPHATASE (BEAKER) (test code = 346) 81 U/L 40-150 AST (SGOT) (BEAKER) (test code = 353) 20 U/L 5-34 ALT (SGPT) (BEAKER) (test code = 347) 22 U/L 6-55 CBC W/PLT COUNT & AUTO [id number] 22:12:00 Test Item Value Reference Range Comments WHITE BLOOD CELL COUNT (BEAKER) (test code = 9.6 K/ L 4.0 -10.0 775) RED BLOOD CELL COUNT (BEAKER) (test code = 761) 4.54 M/ L 4.20-5.80 HEMOGLOBIN (BEAKER) (test code = 410) 14.5 GM/DL 13.0-16.8 HEMATOCRIT (BEAKER) (test code = 411) 44.2 % 40.0-50.0 MEAN CORPUSCULAR VOLUME (BEAKER) (test code = 97.3 fL 82 .0-98.0 753) MEAN CORPUSCULAR HEMOGLOBIN (BEAKER) (test code 32.0 pg 27.0-33.0 = 751) MEAN CORPUSCULAR HEMOGLOBIN CONC (BEAKER) (test 32.9 GM/DL 32.0-36.0 code = 752) RED CELL DISTRIBUTION WIDTH (BEAKER) (test code 12.1 % 10.3-14.2 = 412) PLATELET COUNT (BEAKER) (test code = 756) 214 K/CU MM 150-43 0 MEAN PLATELET VOLUME (BEAKER) (test code = 754) 7.9 fL 6.5-10.5 NUCLEATED RED BLOOD CELLS (BEAKER) (test code = 0 /100 WBC 0-0 413) NEUTROPHILS RELATIVE PERCENT (BEAKER) (test code 66 % = 429) LYMPHOCYTES RELATIVE PERCENT (BEAKER) (test code 19 % = 430) MONOCYTES RELATIVE PERCENT (BEAKER) (test code = 6 % 431) EOSINOPHILS RELATIVE PERCENT (BEAKER) (test code 9 % = 432) BASOPHILS RELATIVE PERCENT (BEAKER) (test code = 0 % 437) NEUTROPHILS ABSOLUTE COUNT (BEAKER) (test code = 6.32 K/ L 1.80-8.00 670) LYMPHOCYTES ABSOLUTE COUNT (BEAKER) (test code = 1.80 K/ L 1.48-4.50 414) MONOCYTES ABSOLUTE COUNT (BEAKER) (test code = 0.62 K/ L 0 .00-1.30 415) EOSINOPHILS ABSOLUTE COUNT (BEAKER) (test code = 0.86 K/ L 0.00-0.50 416) BASOPHILS ABSOLUTE COUNT (BEAKER) (test code = 0.02 K/ L 0 .00-0.20 417) 0.00
--- OUTSIDE RECORDS SUMMARY | 2020-02-06 21:46 | XMS REPORT ---
:1965 Author Organization [employer] Care Team Providers Name Role Phone Erik Matilde Provider Role Unavailable Allergies No Known Allergies Problems Problem Type Condition Code Onset Dates Condition Statu s Assessment Pain in right knee M25.561 Active Problem Pain in left knee M25.562 [...] hyperglycemia Problem Obesity (BMI 30-39.9) E66.9 Active Problem Kidney stones N20.0 Active Problem Prediabetes R73.03 Active Problem Abnormal urine R82.90 Active Problem Peripheral edema R60.9 Active Problem Hyperlipidemia, unspecified E78.5 Active hyperlipidemia type Problem Elevated serum creatinine R79.89 Ac tive Problem Obstructive sleep apnea G47.33 Acti ve Problem Skin lesion L98.9 Active Medications No Known Medications Results No Known Results Summary Purpose eClinicalWorks Submission
--- OUTSIDE RECORDS SUMMARY | 2020-02-06 21:46 | XMS REPORT ---
[...] End Date Status Dosage System Date Multivitamin [facility] 96097616946 - Orally Active not de fined Furosemide ND 67315385074 20 MG Orally Active 1 ta blet as Once a day needed for swelling Lancets ND 53046115396 - as directed April 21, Active as di rected Test BS once 2017 (dispense daily lancets formulary to insurance) Blood Glucose NDC 0 as directed April 21, Active as d irected Test Strip Test BS once 2017 (DISPENS E daily BLOOD GLUCOSE TEST STRIPS FORMULARY TO INSURANCE) Cardura ND 38724502584 1 MG Orally March 26, Active 1 table t in Once a day 2017 evening for high blood pressure Mobic ND 73049866338 7.5 MG Orally December Active 1 tabl et as Once a day 2019 needed for pain Coreg ND 44662081816 25 mg Orally Active 1 table t Twice a day Lisinopril ND 32495408052 20 mg Orally Active 1 ta blet Once daily Ibuprofen ND 74693185980 400 MG Orally Active 1 ta blet Three times a with food day or milk as needed Blood Glucose NDC 0 as directed April 21, Active as d irected Monitor Test BS once 2017 (DISPENSE daily BLOOD GLUCOSE MONITOR FORMULARY TO INSURANCE) Flomax ND 77899767109 0.4 MG Orally Active 1 caps ule Once a day Belviq ND 91566875903 10 MG Orally Active 1 table t Twice a day Lamisil ND 19003751910 250 MG Orally Active 1 tabl et Once a day Gabapentin ND 88443611223 300 MG Orally Active 1 c apsule Three times a as needed day for pain Metformin HCl ND 28248908132 500 MG Orally Active 1 tablet Twice daily with a meal; for diabetes Results No Known Results Summary Purpose eClinicalWorks Submission
--- OUTSIDE RECORDS SUMMARY | 2020-02-06 21:46 | XMS REPORT ---
:1965 Author Organization [employer] Care Team Providers Name Role Phone Matilde Valencia Provider Role Unavailable Allergies No Known Allergies Problems Problem Type Condition Code Onset Dates Condition Statu s Assessment Essential hypertension I10 Activ e Problem [...] Skin lesion L98.9 Active Medications Medication Code System Code Instructions Start Date End Date Status Dosage Lisinopril [facility] 23857430639 20 MG Orally Once Active 1 tablet daily Results No Known Results Summary Purpose eClinicalWorks Submission
--- OUTSIDE RECORDS SUMMARY | 2020-02-06 21:46 | XMS REPORT ---
:1965 Author Organization [employer] Care Team Providers Name Role Phone Matilde Valencia Provider Role Unavailable Allergies No Known Allergies Problems Problem Type Condition Code Onset Dates Condition Statu s Assessment Essential hypertension I10 Activ e Assessment Pain in right knee M25.561 Active Problem Pain in right knee M25.561 Active Problem Pain in left knee M25.562 Active Problem Other chronic pain G89.29 Active Problem Hyperglycemia R73.9 Active Problem Obstructive sleep apnea (adult) G47.33 Active (pediatric) Problem Dependence on CPAP ventilation Z99.89 Active Problem Hypokalemia E87.6 Active Problem Chronic kidney disease, unspecified N18.9 Active CKD stage Problem Body mass index (BMI) of 40.0-44.9 Z68.41 Active in adult Problem Morbid obesity E66.01 Active Problem Essential hypertension I10 Activ e Problem Hypoxia R09.02 Active Problem Abnormal urine R82.90 Active Problem 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 Problem Acquired absence of eye Z90.01 Acti ve Problem Hypertriglyceridemia E78.1 Active Problem Obesity (BMI 30-39.9) E66.9 Active Problem On supplemental oxygen therapy Z99.81 Active Problem Type 2 diabetes mellitus with E11.21 Active diabetic nephropathy Problem Type 2 diabetes mellitus with E11.65 Active hyperglycemia Problem Prediabetes R73.03 Active Problem Obstructive sleep apnea G47.33 Acti ve Problem Hyperlipidemia, unspecified E78.5 Active hyperlipidemia type Problem Elevated serum creatinine R79.89 Ac tive Problem Kidney stones N20.0 Active Problem Morbid (severe) obesity due to E66.01 Active excess calories Problem Skin lesion L98.9 Active Problem Peripheral edema R60.9 Active Medications Medication Code System Code Instructions Start End Date Status Dos age Date Gabapentin [facility] 34480842574 300 MG Orally Active 1 c apsule Three times a as needed day for pain Lisinopril ND 72858236121 20 MG Orally Active 1 ta blet Once daily Coreg ND 04740280262 25 MG Orally Active 1 table t Twice a day Results No Known Results Summary Purpose eClinicalWorks Submission
--- OUTSIDE RECORDS SUMMARY | 2020-02-06 21:46 | XMS REPORT ---
:1965 Author Organization [employer] Care Team Providers Name Role Phone Matilde Valencia Provider Role Unavailable Allergies, Adverse Reactions, Alerts Substance Reaction Event Type Aleve Lip swelling Drug Allergy Problems Problem Type Condition Code Onset Dates Condition Statu s Assessment Chest congestion R09.89 Active Assessment Acquired absence of eye Z90.01 Acti ve Problem Pain in right knee M25.561 Active [...] Peripheral edema R60.9 Active Medications Medication Code Code Instructions Start End Date Status Dosage System Date Furosemide ND 88436225738 20 MG Orally Active 1 ta blet as Once a day needed for swelling Flomax ND 54141215071 0.4 MG Orally Active 1 caps ule Once a day Multivitamin ND 67277954648 - Orally Active not de fined Mobic ND 99637181204 7.5 MG Orally December Active 1 tabl et as Once a day 2019 needed for pain Blood Glucose NDC 0 as directed April 21, Active as d irected Test Strip Test BS once 2018 (DISPENS E daily BLOOD GLUCOSE TEST STRIPS FORMULARY TO INSURANCE) Cardura ND 39794849431 1 MG Orally March 26, Active 1 table t in Once a day 2017 evening for high blood pressure Metformin HCl ND 13795319855 500 MG Orally Active 1 tablet Twice daily with a meal; for diabetes Lisinopril ND 82275898516 20 mg Orally Active 1 ta blet Once daily Ibuprofen ND 98236733506 400 MG Orally Active 1 ta blet Three times a with food day or milk as needed Blood Glucose NDC 0 as directed April 21, Active as d irected Monitor Test BS once 2017 (DISPENSE daily BLOOD GLUCOSE MONITOR FORMULARY TO INSURANCE) Gabapentin ND 32346911059 300 MG Orally Active 1 c apsule Three times a as needed day for pain Belviq [facility] 75412554031 10 MG Orally Active 1 table t Twice a day Lamisil ND 61597998610 250 MG Orally Active 1 tabl et Once a day Lancets [facility] 87432393805 - as directed April 21, Active as di rected Test BS once 2018 (dispense daily lancets formulary to insurance) Coreg ND 45665560798 25 mg Orally Active 1 table t Twice a day Results No Known Results Summary Purpose eClinicalWorks Submission
--- OUTSIDE RECORDS SUMMARY | 2020-02-06 21:46 | XMS REPORT ---
:1965 Author Organization [employer] Care Team Providers Name Role Phone Matilde Valencia Provider Role Unavailable Allergies, Adverse Reactions, Alerts Substance Reaction Event Type Aleve Lip swelling Drug Allergy Problems Problem Type Condition Code Onset Dates Condition Statu s Assessment Other chronic pain G89.29 Active Assessment Pain in right knee M25.561 [...] End Date Status Dosage System Date Furosemide [facility] 2] 58959188563 20 mg Orally Active 1 ta blet as Once a day needed for swelling Metformin HCl ND 17073698579 500 MG Orally April 21, Active 1 tablet Twice daily 2017 with a meal; for diabetes Belviq [facility] 2] 17913831935 10 MG Orally Active 1 table t Twice a day Mobic ND 60512206691 7.5 MG Orally Active 1 tabl et Once a day Blood Glucose NDC 0 as directed April 21, Active as d irected Test Strip Test BS once 2017 (DISPENS E daily BLOOD GLUCOSE TEST STRIPS FORMULARY TO INSURANCE) Blood Glucose NDC 0 as directed April 21, Active as d irected Monitor Test BS once 2018 (DISPENSE daily BLOOD GLUCOSE MONITOR FORMULARY TO INSURANCE) Coreg NDC 98894407911 25 mg Orally Active 1 table t Twice a day Flomax NDC 53840169376 0.4 MG Orally Aug 04December Active 1 caps ule Once a day 2017 Cardura NDC 97462317026 1 MG Orally March 26, Active 1 table t in Once a day 2017 evening for high blood pressure Ibuprofen NDC 17903005601 400 MG Orally Active 1 ta blet Three times a with food day or milk as needed Lamisil ND 81840411901 250 MG Orally Active 1 tabl et Once a day Multivitamin ND 72785291547 - Orally Active not de fined Lancets ND 54308104549 - as directed April 21, Active as di rected Test BS once 2017 (dispense daily lancets formulary to insurance) Gabapentin ND 03290210754 300 MG Orally Active 1 c apsule Three times a day Lisinopril ND 12474053695 20 mg Orally Active 1 ta blet Once daily Meloxicam ND 72221003448 15 MG Orally April 04, May 04, Active 1/2 to 1 Once a day 2018 2018 tablet as needed for pain; take with food/milk Results No Known Results Summary Purpose eClinicalWorks Submission
[2020-02-06] MEDS ORDERED: TETANUS & DIPHTHERIA TOX,ADULT 0.5 ML VIAL ONE (22:28)
[2020-02-06] MEDS ORDERED: BUPIVACAINE 0.5% PF 10 ML VIAL ONE (23:17)
[2020-02-06] MEDS ORDERED: LIDOCAINE 1% MPF 5 ML VIAL ONE (23:17)
[2020-02-07] MEDS ORDERED: AMOX/K CLAV 875 MG TAB ONE (00:25)
--- NOTE | 2020-02-07 00:30 | ER ---
Nurse's Notes [facility] Name: Abebe Marquez Age: 54 yrs Sex: Male : 1965 Arrival Date: 02/06/2020 Time: 21:46 Bed 17 Private MD: Diagnosis: Bitten by cat;Laceration without foreign body, right lower leg;Abrasion of right hand Presentation: 02/05 21:58 Chief complaint: Patient states: Cat bite on R leg by own cats last night. Coronavirus ca1 screen: Proceed with normal triage. Patient denies a cough. Patient denies shortness of breath or difficulty breathing. Patient denies measured and/or subjective temperature greater than 100.4F prior to today's visit. Patient denies travel on a cruise ship or to a country the [facility] currently lists as an affected area. Patient denies contact with known and/or suspected case of COVID-19. Ebola Screen: Patient negative for fever greater than or equal to 101.5 degrees Fahrenheit, and additional compatible Ebola Virus Disease symptoms Patient denies exposure to infectious person. Patient denies travel to an Ebola-affected area in the 21 days before illness onset. No symptoms or risks identified at this time. Initial Sepsis Screen: Does the patient meet any 2 criteria? No. Patient's initial sepsis screen is negative. Does the patient have a suspected source of infection? No. Patient's initial sepsis screen is negative. Risk Assessment: Do you want to hurt yourself or someone else? Patient reports no desire to harm self or others. Onset of symptoms was February 05, 2020. 21:58 Method Of Arrival: Ambulatory ca1 21:58 Acuity: ANUJA 4 ca1 Historical: - Allergies: 22:00 Aleve; ca1 - Home Meds: 22:00 Lisinopril Oral [Active]; Metformin Oral [Active]; carvedilol oral oral [Active]; ca1 - PMHx: 22:00 Atrial Fib; Hypertension; Kidney stones; swelling of legs; ca1 - PSHx: 22:00 kidney surg; ca1 - Immunization history:: Adult Immunizations up to date, Last tetanus immunization: unknown, Flu vaccine is up to date. - Social history:: Smoking status: Patient denies any tobacco usage or history of. Screenin/28 00:07 Abuse screen: Denies threats or abuse. Denies injuries from another. Nutritional mg2 screening: No deficits noted. Tuberculosis screening: No symptoms or risk factors identified. Fall Risk None identified. Assessment: 02/05 23:00 General: Appears in no apparent distress. comfortable, Behavior is calm, cooperative. mg2 Pain: Complains of pain in lateral aspect of right calf. Neuro: Level of Consciousness is awake, alert, obeys commands, Oriented to person, place, time, situation. Cardiovascular: Capillary refill < 3 seconds Patient's skin is warm and dry. Respiratory: Airway is patent Respiratory effort is even, unlabored, Respiratory pattern is regular, symmetrical. GI: No signs and/or symptoms were reported involving the gastrointestinal system. : No signs and/or symptoms were reported regarding the genitourinary system. EENT: No signs and/or symptoms were reported regarding the EENT system. Derm: Skin laceration and scratches. Musculoskeletal: Circulation, motion, and sensation intact. Capillary refill < 3 seconds. Vital Signs: 21:58 BP 127 / 73; Pulse 76; Resp 18 S; Temp 97.7(TE); Pulse Ox 95% on R/A; Weight 118.84 kg ca1 (R); Height 5 ft. 10 in. (177.80 cm) (R); Pain 5/10; 02/06 00:27 BP 127 / 85; Pulse 80; Resp 18; Temp 98(O); Pulse Ox 98% ; mg2 02/05 21:58 Body Mass Index 37.59 (118.84 kg, 177.80 cm) ca1 ED Course: 02/05 21:46 Patient arrived in ED. ds1 21:49 Ildefonso Mcbride NP is PHCP. pm1 21:49 Declan Manuel MD is Attending Physician. pm1 21:59 Triage completed. ca1 22:00 Arm band placed on right wrist. ca1 22:07 Ricky Pugh, CHRISTIAN is Primary Nurse. mg2 02/06 00:07 Patient has correct armband on for positive identification. Door closed. Warm blanket mg2 given. 00:07 Assist provider with laceration repair on lateral aspect of right calf that was between mg2 2.6 to 7.5 cm using sutures. Set up tray. Performed by Ildefonso Mcbride MARKET DEVELOPMENT ANALYST Dressed with 4X4s, Patient tolerated well. 6 stitches done under local anesthesia. Patient did not have IV access during this emergency room visit. 00:29 Tib Fib Right XRAY In Process Unspecified. 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 Exp: mg2 11/25/2021. Lot #: [id number]. } Route: IM; Site: right deltoid; 22:52 Follow up: Response: No adverse reaction mg2 23:55 Drug: Lidocaine (1 %) 5 ml {Note: given by the provider.} Volume: 5 ml; Route: mg2 Infiltration; 02/06 00:26 Follow up: Response: No adverse reaction mg2 02/05 23:55 Drug: Bupivacaine (0.5 %) 10 ml {Note: given by the provider.} Volume: 10 ml; Route: mg2 Infiltration; 02/06 00:26 Follow up: Response: No adverse reaction mg2 00:25 Drug: Augmentin 875 mg Route: PO; mg2 00:26 Follow up: Response: No adverse reaction; Medication administered at discharge. mg2 Outcome: 00:29 Discharge ordered by MD. pm1 00:44 Discharged to home ambulatory. mg2 00:44 Condition: stable 00:44 Discharge instructions given to patient, Instructed on discharge instructions, follow up and referral plans. medication usage, Demonstrated understanding of instructions, follow-up care, medications, wound care, Prescriptions given X 2. 00:45 Patient left the ED. mg2 Signatures: Dispatcher [employer] EDWI Barbara Gross ds1 Ildefonso Mcbride, ANCELMO MARKET DEVELOPMENT ANALYST pm1 Ricky Pugh RN RN mg2 Jillian ePrez RN RN ca1 Corrections: (The following items were deleted from the chart) 00:07 Assist provider with laceration repair on lateral aspect of right calf that was mg2 between 2.6 to 7.5 cm using sutures. Set up tray. Performed by Ildefonso Mcbride MARKET DEVELOPMENT ANALYST Dressed with 4X4s, Patient tolerated well. mg2
--- NOTE | 2020-02-07 00:30 | EDPHYS ---
Physician Documentation [facility] Name: Abebe Marquez Age: 54 yrs Sex: Male : 1965 Arrival Date: 02/06/2020 Time: 21:46 Bed 17 Private MD: SERA Physician Declan Manuel HPI: 02/05 22:33 This 54 yrs old Male presents to ER via Ambulatory with complaints of Cat pm1 bite. 22:33 The patient presents with a laceration, irregular. The complaints affect the lateral pm1 aspect of right calf. Context: The problem was sustained at home, resulted from Animal bite, the patient can fully bear weight, the patient is able to ambulate, Problem is a result from a previous injury: No. Onset: The symptoms/episode began/occurred last night. Modifying factors: The symptoms are alleviated by pressure dressing. the symptoms are aggravated by walking caused wound to bleed. Treatment prior to arrival includes: applying pressure to the affected area. Severity of symptoms: in the emergency department the symptoms are unchanged. The patient has not experienced similar symptoms in the past. Patient attempted to break up a cat fight between his cat and his girlfriend's cat. When he did that the cat bit him on his right lower leg and scratched him on the right arm and hand. Patient wrapped and dressed his wound and went to work today. He presented to the ER because his wound was bleeding and his work wanted him to be evaluated. Historical: - Allergies: 22:00 Aleve; ca1 - Home Meds: 22:00 Lisinopril Oral [Active]; Metformin Oral [Active]; carvedilol oral oral [Active]; ca1 - PMHx: 22:00 Atrial Fib; Hypertension; Kidney stones; swelling of legs; ca1 - PSHx: 22:00 kidney surg; ca1 - Immunization history:: Adult Immunizations up to date, Last tetanus immunization: unknown, Flu vaccine is up to date. - Social history:: Smoking status: Patient denies any tobacco usage or history of. ROS: 22:37 Constitutional: Negative for fever, chills, and weight loss, Cardiovascular: Negative pm1 for chest pain, palpitations, and edema, Respiratory: Negative for shortness of breath, cough, wheezing, and pleuritic chest pain, Abdomen/GI: Negative for abdominal pain, nausea, vomiting, diarrhea, and constipation, Back: Negative for injury and pain. 22:37 Neuro: Negative for headache, weakness, numbness, tingling, and seizure. 22:37 MS/extremity: Positive for laceration, of the lateral aspect of right calf, Negative for decreased range of motion, deformity. 22:37 Skin: Positive for laceration(s), of the lateral aspect of right calf. Exam: 22:37 Constitutional: This is a well developed, well nourished patient who is awake, alert, pm1 and in no acute distress. Head/Face: Normocephalic, atraumatic. Chest/axilla: Normal chest wall appearance and motion. Nontender with no deformity. No lesions are appreciated. 22:37 Cardiovascular: Exam negative for acute changes, Rate: normal, Pulses: no pulse deficits are appreciated, Edema: is not appreciated. 22:37 Respiratory: Exam negative for acute changes, respiratory distress, shortness of breath, wheezing, the patient does not display signs of respiratory distress. 22:37 Abdomen/GI: Exam negative for acute changes, Inspection: obese Palpation: abdomen is soft and non-tender, in all quadrants. 22:37 Musculoskeletal/extremity: Extremities: grossly normal except: noted in the lateral aspect of right calf: laceration, noted in the right arm: abrasion, no evidence of puncture. 22:37 Skin: Appearance: normal except for affected area, injury, laceration(s), the wound is approximately 8 cm(s), with a depth of 1.5 cm(s), of the lateral aspect of right calf, that can be described as clean, no foreign body, irregular, with mild bleeding. Vital Signs: 21:58 BP 127 / 73; Pulse 76; Resp 18 S; Temp 97.7(TE); Pulse Ox 95% on R/A; Weight 118.84 kg ca1 (R); Height 5 ft. 10 in. (177.80 cm) (R); Pain 02/18; 02/06 00:27 BP 127 / 85; Pulse 80; Resp 18; Temp 98(O); Pulse Ox 98% ; mg2 02/05 21:58 Body Mass Index 37.59 (118.84 kg, 177.80 cm) ca1 Laceration: 00:15 Wound Repair of 8cm ( 3.1in ) subcutaneous laceration to lateral aspect of right calf. pm1 Irregularly shaped.. Distal neuro/vascular/tendon intact. Anesthesia: Local anesthetic administered with 8 mls of Lido/Marcaine. Wound prep: Extensive cleansing with betadine with hibiclenz by nurse by me, Wound irrigation with saline by nurse, Wound explored extensively, Copious irrigation. Skin closed with 6 2-0 Prolene using simple sutures and sterile technique. Dressed with Neosporin, 4x4's. Patient tolerated well. MDM: 02/05 21:50 Patient medically screened. [facility] 02/06 00:16 Data reviewed: vital signs. Data interpreted: Pulse oximetry: on room air is 95 %. pm1 Interpretation: normal. 00:16 Special discussion: I discussed in detail with the patient the higher chance of wound pm1 infection based on his presenting history. 00:28 Counseling: I had a detailed discussion with the patient and/or guardian regarding: the pm1 historical points, exam findings, and any diagnostic results supporting the discharge/admit diagnosis, radiology results, the need for outpatient follow up, to return to the emergency department if symptoms worsen or persist or if there are any questions or concerns that arise at home. 02/05 23:27 Order name: Tib Fib Right XRAY pm1 02/05 23:02 Order name: Prolene, Sutures; Complete Time: 23:24 pm1 02/05 23:02 Order name: Dressing - Wound; Complete Time: 00:18 pm1 02/05 23:02 Order name: Gloves, Sterile; Complete Time: 23:25 pm1 02/05 23:02 Order name: Setup Suture Tray; Complete Time: 23:25 pm1 Administered Medications: 02/05 22:30 Drug: Tetanus-Diphtheria Toxoid Adult 0.5 ml {Screening Specialist: [employer]. Exp: mg2 11/25/2021. Lot #: [id number]. } Route: IM; Site: right deltoid; 22:52 Follow up: Response: No adverse reaction mg2 23:55 Drug: Lidocaine (1 %) 5 ml {Note: given by the provider.} Volume: 5 ml; Route: mg2 Infiltration; 02/06 00:26 Follow up: Response: No adverse reaction [facility] 02/05 23:55 Drug: Bupivacaine (0.5 %) 10 ml {Note: given by the provider.} Volume: 10 ml; Route: mg2 Infiltration; 02/06 00:26 Follow up: Response: No adverse reaction mg2 00:25 Drug: Augmentin 875 mg Route: PO; mg2 00:26 Follow up: Response: No adverse reaction; Medication administered at discharge. mg2 Disposition: 11:07 Co-signature as Attending Physician, Declan Manuel MD I agree with the assessment and [facility] plan of care. Disposition: 02/07/20 00:29 Discharged to Home. Impression: Bitten by cat, Laceration without foreign body, right lower leg, Abrasion of right hand. - Condition is Stable. - Discharge Instructions: Laceration Care, Adult, Animal Bite. - Prescriptions for Augmentin 875- 125 mg Oral Tablet - take 1 tablet by ORAL route every 12 hours for 10 days; 20 tablet. Tramadol 50 mg Oral Tablet - take 1 tablet by ORAL route every 8 hours as needed; 12 tablet. - Medication Reconciliation Form, Thank You Letter, Antibiotic Education, Prescription Opioid Use form. - Follow up: Emergency Department; When: As needed; Reason: Worsening of condition. Follow up: Private Physician; When: 2 - 3 days; Reason: Wound Recheck, Recheck today's complaints, Continuance of care, Re-evaluation by your physician. - Problem is new. - Symptoms have improved. Signatures: Dispatcher [employer] EDMS Declan Manuel MD MD cha Marinas, Patrick, PROPOSAL CONSULTANT PROPOSAL CONSULTANT pm1 Ricky Pugh RN RN mg2 Jillian Perez RN RN ca1 Corrections: (The following items were deleted from the chart) 00:45 00:29 02/07/2020 00:29 Discharged to Home. Impression: Bitten by cat; Laceration mg2 without foreign body, right lower leg; Abrasion of right hand. Condition is Stable. Forms are Medication Reconciliation Form, Thank You Letter, Antibiotic Education, Prescription Opioid Use. Follow up: Emergency Department; When: As needed; Reason: Worsening of condition. Follow up: Private Physician; When: 2 - 3 days; Reason: Wound Recheck, Recheck today's complaints, Continuance of care, Re-evaluation by your physician. Problem is new. Symptoms have improved. pm1
[2020-02-07 00:52] VITALS: BP 127/85; TEMP 98; O2SAT 98
--- NOTE | 2020-02-07 08:16 | RAD REPORT ---
EXAM DESCRIPTION: RAD - Tib Fib Right - 02/07/2020 12:29 am CLINICAL HISTORY: ANIMAL BITE COMPARISON: No comparisons FINDINGS: No fracture is identified. There is no dislocation or periosteal reaction noted. No acute or suspicious bony finding. Mild degenerative changes are present at the knee joint. No foreign body in the soft tissues. Edema changes are seen anteriorly. IMPRESSION: No acute bone or joint finding. No air or foreign body in the soft tissues.
== END 2020-02-07 00:45 | disposition home or self-care (01) ==
LOC: ER 21:42
PROC: 0JQN0ZZ Repair Right Lower Leg Subcutaneous Tissue and Fascia, Open Approach (ICD-10-PCS; principal; 2020-02-07)
DX: S81.811A Laceration without foreign body, right lower leg, initial encounter (principal); S60.511A Abrasion of right hand, initial encounter; W55.01XA Bitten by cat, initial encounter; Y93.89 Activity, other specified; Y92.9 Unspecified place or not applicable; I10 Essential (primary) hypertension; I48.91 Unspecified atrial fibrillation; Z23 Encounter for immunization; Z88.6 Allergy status to analgesic agent
CPT/HCPCS: 90471; 90714; 99284

== ENCOUNTER 2020-03-30 13:25 | Emergency (ER) | payer OTHER ==
[2020-03-30 15:30] LABS: Basophils % 0.3 % (0-1.3); Hematocrit 38.1 % (39.6-49.0); Lymphocytes % 25.5 % (15.3-44.8); MPV 9.3 fL (7.6-11.3); RBC Red Blood Cell Count 4.15 M/uL (4.33-5.43)
--- OUTSIDE RECORDS SUMMARY | 2020-03-30 15:41 | XMS REPORT | Clinical Summary ---
:1965 Author Organization [facility] Address [address] [place] [address] Care Team Providers Name Role Phone Dwight Olmos MD Primary Care Provider Allergies Not on File Medications Medication Sig Dispensed Refills Start Date End Date Status carvedilol (COREG) 12.5 Take 12.5 mg by 0 Active MG tablet mouth 2 (two) times a day with meals. furosemide (LASIX) 20 Take 20 mg by 0 Active MG tablet mouth 2 (two) times a day. lisinopril Take 10 mg by 0 Activ e (PRINIVIL,ZESTRIL) 10 mouth daily. MG tablet meloxicam (MOBIC) 15 MG Take 15 mg by 0 Active tablet mouth daily. Active Problems Not on file Social History Tobacco Use Types Packs/Day Years Used Date Unknown If Ever Smoked Alcohol Use Drinks/Week oz/Week Comments Defer Sex Assigned at Date Recorded Not on file Job Start Date Occupation Industry Not on file Not on file Not on file Travel History Travel Start Travel End No recent travel history available. 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
--- OUTSIDE RECORDS SUMMARY | 2020-03-30 15:41 | XMS REPORT | Clinical Summary ---
:1965 Author Organization [facility] Address [address] [place] [address] Care Team Providers Name Role Phone Matilde Valencia MD Primary Care Provider [phone] Allergies Active Allergy Reactions Severity Noted Date Comments Naproxen Sodium Swelling 02/05/2016 Lips Medications Medication Sig Dispensed Refills Start Date End Date Status carvedilol (COREG) 25 Take 25 mg by 0 Active MG tabletIndications: mouth 2 (two) high blood pressure times daily with breakfast and dinner. lisinopril Take 20 mg by 0 Activ e (PRINIVIL,ZESTRIL) 20 mouth daily. MG tabletIndications: high blood pressure furosemide (LASIX) 20 Take 20 mg by 0 Active MG tablet mouth daily. doxycycline Take 100 mg by 0 Act miguel (VIBRAMYCIN) 100 MG mouth 2 (two) capsule times daily. tamsulosin (FLOMAX) Take 1 capsule 15 capsule 0 04/21/2017 Active 0.4 mg Cp24 24 hr (0.4 mg total) by capsule mouth nightly. 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 Specialist Device Shelf Model / Identifier Expiration Serial / Date Lot Stent Uret Ult Johnny [id number] - [id number] Stents-Pe Left: B [place]STON 01/09/2019 [id number] / Implanted: Qty: 1 on 04/01/2016 by John Guillen MD riphe ral [employer]:UROLOGY/GYNE / COLOGY [id number] Set Stent Injection 6x28cm [id number] - [id number] Uro Stent Left: [place] 02/20/2019 [id number] / Implanted: Qty: 1 on 04/21/2017 by John Guillen MD [employer]:ONCOLOGY / [id number] Results Not on fileafter 03/30/2019 Insurance Payer Benefit Plan / Group Subscriber ID Type Phone A ddress [employer] ALL xxxxxxxxx Maps Contracted Advance Directives For more information, please contact:[address] [phone] Code Status Date Activated Date Inactivated Comments Full Code 04/16/2017 6:26 PM 04/17/2017 4:16 PM This code status was determined by: Patient Full Code 03/22/2016 10:44 PM 03/25/2016 12:01 AM This code status was determined by: Patient Full Code 02/05/2016 3:26 AM 02/08/2016 8:25 PM This code status was determined by: Patient
--- OUTSIDE RECORDS SUMMARY | 2020-03-30 15:43 | XMS REPORT | Continuity of Care Document ---
:1965 Author Organization [facility] t Address [address] [place] [address] Care Team Providers Name Role Phone Nickolas PEÑA, S. Primary Care Physician JOSSELIN BOSWELL Attending Clinician Unavailable JOSSELIN BOSWELL Admitting Clinician Unavailable Problems Condition Condition Condition Status Onset Resolution Last Treating Co mments Source Name Details Category Date Date Treatment Clinician Date Complicate Complicate Disease Active [facility] UTI d UTI 04-16 [facility] - (urinary (urinary 00:00: Medica l tract tract 00 [place] infection) infection) Obstructio Obstructio Disease Active [facility] of left n of left 04-16 [facility] - ureteropel ureteropel 00:00: Me dical maribel maribel 00 Center junction junction due to due to stone stone Obstructiv Obstructiv Disease Active [facility] e uropathy e uropathy 03-22 Carmen kes - 00:00: Medical 00 Center SANTOS (acute SANTOS (acute Disease Active [facility] kidney kidney 02-05 [facility] - injury) injury) 00:00: Medical 00 Center Renal Renal Disease Active [facility] stone stone 02-05 [facility] - 00:[facility]: Medical 00 Center Hydronephr Hydronephr Disease Active [facility] osis osis 02-05 [facility] - 00:00: Medical 00 [place] HTN HTN Disease Active [facility] (hypertens (hypertens 4-27 Carmen kes - ion) ion) 00:00: Medical 00 Center Septic Septic Disease Active [facility] shock shock - [facility] - 00:[facility]: Medical 00 [place] Hyperglyce Hyperglyce Problem Active [facility] jacinto jacinto [facility] Essential Essential Problem Active [facility] hypertensi hypertensi Carmen kes - on on [facility] Abnormal Abnormal Problem Active [facility] urine urine [facility] Obstructiv Obstructiv Problem Active [facility] sleep e sleep [facility] apnea apnea [facility] Peripheral Peripheral Problem Active [facility] edema edema [facility] Kidney Kidney Problem Active [facility] stones stones [facility] Prediabete Prediabete Problem Active [facility] Hyperlipid Hyperlipid Problem Active [facility] emia, emia, [facility] - unspecifie unspecifie Me moria d d l hyperlipid hyperlipid Ou tpati emia type emia type ent Clinics Skin Skin Problem Active [facility] lesion lesion [facility] Elevated Elevated Problem Active [facility] serum serum [facility] - creatinine creatinine Me moria l [facility] Pain in Pain in Problem Active [facility] right knee right knee Carmen k[facility] - [facility] Hypokalemi Hypokalemi Problem Active [facility] Pain in Pain in Problem Active [facility] left knee left knee [facility] Hypertrigl Hypertrigl Problem Active [facility] yceridemia yceridemia Carmen kes - Memoria [facility] Other Other Problem Active [facility] chronic chronic [facility] pain pain [facility] Eosinophil Eosinophil Problem Active [facility] ia ia [facility] Body mass Body mass Problem Active [facility] index index [facility] - (BMI) of (BMI) of Memori a 40.0-44.9 40.0-44.9 l in adult in adult Outpat i ent Clinics Morbid Morbid Problem Active [facility] (severe) (severe) [facility] - obesity obesity Memoria due to due to l excess excess Outpati calories calories ent Clinics Dependence Dependence Problem Active [facility] on CPAP on CPAP [facility] - ventilatio ventilatio Me moria n n l [facility] Chronic Chronic Problem Active [facility] kidney kidney [facility] - disease, disease, Memori a unspecifie unspecifie l d CKD d CKD [facility] stage stage ent Clinics 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 [facility] - mellitus mellitus Memori a with with l hyperglyce hyperglyce Ou tpati jacinto [facility] ent Clinics Hypoxia Hypoxia Problem Active [facility] 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 [facility] - mellitus mellitus Memori a with with l diabetic diabetic Outpat i nephropath nephropath en t y y Clinics Obesity Obesity Problem Active [facility] (BMI (BMI [facility] - 30-39.9) 30-39.9) Memori a l [facility] On On Problem Active [facility] supplement supplement Carmen kes - al oxygen al oxygen Prem fili therapy therapy l [facility] Acquired Acquired Problem Active [facility] absence of absence of [facility] - [facility] Clin[facility] Allergies, Adverse Reactions, Alerts Allergy Allergy Status Severity Reaction(s) Onset Inactive Treating Comm ents Source Name Type Date Date Clinician Naproxen Drug Active Swelling Lips [facility] Sodium Allergy - [facility] - 00:00: Medical [address] [place] [address] Aleve Adverse Active Lip swelling [facility] Reaction [facility] ent [facility] Social History Social Habit Start Date Stop Date Quantity Comments Source Sex Assigned At [facility] Alcohol Comment 2017-04-17 2017-04-17 occasionally [facility] - 00:00:00 00:00:00 [facility] Alcohol intake 2016-03-21 2016-03-21 [facility] thodist 00:00:00 00:00:00 Smoking Status Start Date Stop Date Source Never smoker [facility] Medications Ordered Filled Start Stop Current Ordering Indication Dosage Frequency Signature Comments Components Source Medication Medication Date Date Medication? Clinician (SIG) Name Name doxycycline Yes 100mg Q.5D Take [address] (VIBRAMYCIN 7-11 mg by [facility] - ) 100 MG 13:33: mouth 2 Medica l capsule 56 (two) Center times daily. tamsulosin Yes .4mg QD Take 1 [facility] (FLOMAX) 7-11 capsule [facility] - 0.4 mg Cp24 00:00: (0.4 mg Med ical 24 hr 00 total) by Center capsule mouth nightly. carvedilol Yes 12.5mg Q.5D Take 12.5 [place] (COREG) 6-10 mg by Methodi 12.5 MG 20:54: mouth 2 st tablet 02 (two) times a day with meals. furosemide Yes 20mg Q.5D Take 20 mg [place] (LASIX) 20 6-10 by mouth 2 Met hodi MG tablet 20:54: (two) st 02 times a day. lisinopril Yes 10mg QD Take 10 mg [place] (PRINIVIL,Z 6-10 by mouth Meth vanessa ESTRIL) 10 20:54: daily. st MG tablet 02 meloxicam Yes 15mg QD Take 15 mg [place] (MOBIC) 15 6-10 by mouth Metho di MG tablet 20:54: daily. st 02 carvedilol Yes high blood 25mg Take [address] (COREG) 25 4-26 pressure by mouth 2 [facility] - MG tablet 03:17: (two) Medical 12 times Center daily with breakfast and dinner. lisinopril Yes high blood 20mg QD Take [address] (PRINIVIL,Z 4-26 pressure by mouth [facility] - ESTRIL) 20 03:17: daily. Medic al MG tablet 12 Center furosemide Yes 20mg QD Take [address] (LASIX) 20 4-26 by mouth [facility] - MG tablet 03:17: daily. Medica l 12 Center Lisinopril Lisinopril Yes Matilde [address] [facility] [address] [facility] Coreg Coreg Yes Matilde [address] [facility] Procedures This patient has no known procedures. Plan of Care Planned Activity Planned Date Details Comments Source Future Scheduled 2020-05-12 INFLUENZA VACCINE Linda n Rastafari Test 00:00:00 [code = INFLUENZA VACCINE] Future Scheduled 2015 COLONOSCOPY SCREENING [place] [facility] Test 00:00:00 [code = COLONOSCOPY SCREENING] Future Scheduled 2015 SHINGLES VACCINES Linda n Rastafari Test 00:00:00 (#1) [code = SHINGLES VACCINES (#1)] Encounters Start End Encounter Admission Attending Care Care Encounter Source Date/Time Date/Time Type Type Clinicians Facility Department ID 2020-02-17 2020-02-17 [facility] [id number] 10:33:00 10:33:00 [facility] Medicine Outpati ent Clinics 2019-12-29 2019-12-29 [facility] [id number] 14:20:00 14:20:00 [facility] Medicine Outpati ent Clinics 2019-11-09 2019-11-09 [facility] [id number] 08:45:00 08:45:00 [facility] Medicine Outpati ent Clinics 2019-09-22 2019-09-22 [facility] [id number] 08[facility]00:00 08:00:00 [facility] Medicine Outpati ent Clinics 2019-09-14 2019-09-14 [facility] [id number] 15:33:00 15:33:00 [facility] Medicine Outpati ent Clinics 2019-04-04 2019-04-04 [facility] [id number] [address] 09:00:00 09:00:00 [facility] Medicine Outpati ent Clinics 2019-03-25 2019-03-25 [facility] [id number] 14:39:00 14:39:00 [facility] Medicine Outpati ent Clinics 2019-03-23 2019-03-23 [facility] [id number] 15:00:00 15:00:00 [facility] Medicine Outpati ent Clinics 2018-12-11 2018-12-11 [facility] [id number] 11:48:00 11:48:00 [facility] Medicine Outpati ent Clinics 2018-12-08 2018-12-08 [facility] [id number] 14[facility]45:00 14:45:00 [facility] Medicine Outpat[facility] Clinics 2018-11-30 2018-11-30 [facility] [id number] [address] 16:46:00 16:46:00 [facility] Medicine Outpat[facility] ent Clinics 2018-09-23 2018-09-23 [facility] [id number] [address] 11:45:00 11:45:00 [facility] Medicine Outpati ent Clinics 2018-04-26 2018-04-26 [facility] [id number] 20:50:00 20:50:00 [facility] Medicine Outpati ent Clinics 2018-04-21 2018-04-21 [facility] [id number] 14:30:00 14:30:00 [facility] Medicine Outpati ent Clinics 2018-03-26 2018-03-26 [facility] [id number] 14:30:00 14:30:00 [facility] Medicine Outpati ent Clinics 2018-01-19 2018-01-19 [facility] [id number] 13:30:00 13:30:00 [facility] Medicine Outpati ent Clinics Results Test Description Test Time Test Comments Results Result Comments Source BLOOD CULTURE 2017-04-22 00:00:00 Test Item Value Reference Range Interpretation Comme nts CULTURE (BEAKER) (test code = 1095) No growth in 5 days BLOOD [id number] 00:00:00 Test Item Value Reference Range Interpretation Comments CULTURE (BEAKER) (test No growth in 5 days code = 1095) HEMOGLOBIN [id number] 21:56:00 Test Item Value Reference Range Interpretation Comments HEMOGLOBIN A1C (BEAKER) (test code = 6.7 % 4.3-6.1 H 368) T4, [id number] 12:30:00 Test Item Value Reference Range Interpretation Comments FREE T4 (BEAKER) (test code = 655) 0.74 ng/dL 0.70-1.48 TSH/FREE T4 IF [id number] 05:46:00 Test Item Value Reference Range Interpretation Comments THYROID STIMULATING HORMONE 5.17 uIU/mL 0.35-4.94 H (BEAKER) (test code = 772) [id number] 05:37:00 Test Item Value Reference Range Interpretation Comments FERRITIN (BEAKER) (test code = 361) 79 ng/mL 5-275 Effective 08/29/2014: Reference Range ChangeNew: Male 5-275 Previous: Male 22-322 Female 5-275 Female [id number] NATRIURETIC FACTOR (BNP)2017-04-17 05:22:00 Test Item Value Reference Range Interpretation Comments B-TYPE NATRIURETIC PEPTIDE (BEAKER) 23 pg/mL 0-100 (test code = 700) IRON, TIBC, % SAT. (WITHOUT FERRITIN)2017-04-17 05:17:00 Test Item Value Reference Range Interpretation Comments IRON (BEAKER) (test code = 547) 78 ug/dL 40-160 TOTAL IRON BINDING CAPACITY 329 ug/dL 250-450 (BEAKER) (test code = 769) IRON % SATURATION (2) (BEAKER) 24 % 20-55 (test code = 2590) LIPID [id number] 05:12:00 Test Item Value Reference Range Interpretation Comments TRIGLYCERIDES (BEAKER) (test code = 259 mg/dL 540) CHOLESTEROL (BEAKER) (test code = 214 mg/dL 631) HDL CHOLESTEROL (BEAKER) (test code 27 mg/dL = 976) LDL CHOLESTEROL CALCULATED (BEAKER) 135 mg/dL (test code = 633) Triglyceride Reference Range: Low Risk <150 Borderline 150-199 High Risk 200-499 Very High Risk >=500Cholesterol Reference Range: Low Risk <200 Borderline 200-239 High Risk >240HDL Cholesterol Reference Range: Low Risk >=60 High Risk <40LDL Cholesterol Reference Range: Optimal <100 Near Optimal 100-129 Borderline 130-159 High 160-189 Very High >=190URINALYSIS W/ REFLEX URINE [id number] 00:32:00 Test Item Value Reference Range Interpretation Comments COLOR (BEAKER) (test code = 470) Yellow CLARITY (BEAKER) (test code = 469) Clear SPECIFIC GRAVITY UA (BEAKER) (test 1.019 1.001-1.035 code = 468) PH UA (BEAKER) (test code = 467) 5.5 5.0-8.0 PROTEIN UA (BEAKER) (test code = 30 mg/dL Negative A 464) GLUCOSE UA (BEAKER) (test code = Negative Negative 365) KETONES UA (BEAKER) (test code = Negative Negative 371) BILIRUBIN UA (BEAKER) (test code = Negative Negative 462) BLOOD UA (BEAKER) (test code = 461) Trace Negative A NITRITE UA (BEAKER) (test code = Positive Negative A 465) LEUKOCYTE ESTERASE UA (BEAKER) Moderate Negative A (test code = 466) UROBILINOGEN UA (BEAKER) (test code 0.2 mg/dL 0.2-1.0 = 463) RBC UA (BEAKER) (test code = 519) 6 /HPF WBC UA (BEAKER) (test code = 520) 57 /HPF MUCUS (BEAKER) (test code = 1574) Rare SOURCE(BEAKER) (test code = 2795) [id number] 22:20:00 Test Item Value Reference Range Interpretation Comments PROTIME (BEAKER) (test code = 13.5 seconds 11.7-14.7 759) INR (BEAKER) (test code = 370) 1.0 <=5.9 PARTIAL THROMBOPLASTIN TIME 28.5 seconds 22.5-36.0 (BEAKER) (test code = 760) RECOMMENDED COUMADIN/WARFARIN INR THERAPY RANGESSTANDARD DOSE: 2.0 - 3.0 Includes: PROPHYLAXIS forvenous thrombosis, systemic embolization; TREATMENT for venous thrombosis and/or pulmonary embolus.HIGH RISK: Target INR is 2.5-3.5 for patients with mechanical heart valves.[id number] 22:18:00 Test Item Value Reference Range Interpretation Comments MAGNESIUM (BEAKER) (test code = 1.7 mg/dL 1.6-2.6 627) BASIC METABOLIC [id number] 22:18:00 Test Item Value Reference Range Interpretation Comments SODIUM (BEAKER) 138 meq/L 136-145 (test code = 381) POTASSIUM (BEAKER) 4.0 meq/L 3.5-5.1 (test code = 379) CHLORIDE (BEAKER) 105 meq/L 98-107 (test code = 382) CO2 (BEAKER) (test 25 meq/L 22-29 code = 355) BLOOD UREA NITROGEN 23 mg/dL 7-21 H (BEAKER) (test code = 354) CREATININE (BEAKER) 0.90 mg/dL 0.57-1.25 (test code = 358) GLUCOSE RANDOM 130 mg/dL 70-105 H (BEAKER) (test code = 652) CALCIUM (BEAKER) 8.9 mg/dL 8.4-10.2 (test code = 697) EGFR (BEAKER) (test 89 mL/min/1.73 ESTIMA PORFIRIO GFR IS code = 1092) sq m NOT ACCURATE CREATININE CLEARANCE IN PREDICTING GLOMERULAR FILTRATION RATE . ESTIMATED GFR I S NOT APPLICABLE FOR DIALYSIS PATIEN TS. HEPATIC FUNCTION [id number] 22:18:00 Test Item Value Reference Range Interpretation Comments TOTAL PROTEIN (BEAKER) (test code = 7.2 gm/dL 6.0-8.3 770) ALBUMIN (BEAKER) (test code = 1145) 3.8 g/dL 3.5-5.0 BILIRUBIN TOTAL (BEAKER) (test code 0.5 mg/dL 0.2-1.2 = 377) BILIRUBIN DIRECT (BEAKER) (test 0.2 mg/dL 0.1-0.5 code = 706) ALKALINE PHOSPHATASE (BEAKER) (test 81 U/L 40-150 code = 346) AST (SGOT) (BEAKER) (test code = 20 U/L 5-34 353) ALT (SGPT) (BEAKER) (test code = 22 U/L 6-55 347) CBC W/PLT COUNT & AUTO [id number] 22:12:00 Test Item Value Reference Range Interpretation Comments WHITE BLOOD CELL COUNT (BEAKER) 9.6 K/ L 4.0-10.0 (test code = 775) RED BLOOD CELL COUNT (BEAKER) 4.54 M/ L 4.20-5.80 (test code = 761) HEMOGLOBIN (BEAKER) (test code = 14.5 GM/DL 13.0-16.8 410) HEMATOCRIT (BEAKER) (test code = 44.2 % 40.0-50.0 411) MEAN CORPUSCULAR VOLUME (BEAKER) 97.3 fL 82.0-98.0 (test code = 753) MEAN CORPUSCULAR HEMOGLOBIN 32.0 pg 27.0-33.0 (BEAKER) (test code = 751) MEAN CORPUSCULAR HEMOGLOBIN CONC 32.9 GM/DL 32.0-36.0 (BEAKER) (test code = 752) RED CELL DISTRIBUTION WIDTH 12.1 % 10.3-14.2 (BEAKER) (test code = 412) PLATELET COUNT (BEAKER) (test 214 K/CU MM 150-430 code = 756) MEAN PLATELET VOLUME (BEAKER) 7.9 fL 6.5-10.5 (test code = 754) NUCLEATED RED BLOOD CELLS 0 /100 WBC 0-0 (BEAKER) (test code = 413) NEUTROPHILS RELATIVE PERCENT 66 % (BEAKER) (test code = 429) LYMPHOCYTES RELATIVE PERCENT 19 % (BEAKER) (test code = 430) MONOCYTES RELATIVE PERCENT 6 % (BEAKER) (test code = 431) EOSINOPHILS RELATIVE PERCENT 9 % (BEAKER) (test code = 432) BASOPHILS RELATIVE PERCENT 0 % (BEAKER) (test code = 437) NEUTROPHILS ABSOLUTE COUNT 6.32 K/ L 1.80-8.00 (BEAKER) (test code = 670) LYMPHOCYTES ABSOLUTE COUNT 1.80 K/ L 1.48-4.50 (BEAKER) (test code = 414) MONOCYTES ABSOLUTE COUNT (BEAKER) 0.62 K/ L 0.00-1.30 (test code = 415) EOSINOPHILS ABSOLUTE COUNT 0.86 K/ L 0.00-0.50 H (BEAKER) (test code = 416) BASOPHILS ABSOLUTE COUNT (BEAKER) 0.02 K/ L 0.00-0.20 (test code = 417) 0.00
--- OUTSIDE RECORDS SUMMARY | 2020-03-30 15:43 | XMS REPORT ---
:1965 Author Organization [employer] Care Team Providers Name Role Phone Matilde Valencia Provider Role Unavailable Allergies No Known Allergies Problems Problem Type Condition Code Onset Dates Condition Statu s Assessment Essential hypertension I10 Activ e Problem Pain in right knee M25.561 Active [...] Instructions Start Date End Date Status Dosage Coreg [facility] [id number] 25 MG Orally Active 1 table t Twice a day Lisinopril ND [id number] 20 MG Orally Once Active 1 tablet daily Results No Known Results Summary Purpose eClinicalWorks Submission
[2020-03-30 15:45] LABS: BUN Blood Urea Nitrogen 21 mg/dL (7-18); Bicarbonate 26 mmol/L (21-32); Glucose Level 94 mg/dL (74-106); Potassium 3.7 mmol/L (3.5-5.1); Sodium Level 141 mmol/L (136-145)
--- NOTE | 2020-03-30 15:53 | ER ---
Nurse's Notes [facility] Name: Abebe Marquez Age: 54 yrs Sex: Male : 1965 Arrival Date: 03/30/2020 Time: 13:29 Bed 16 Private MD: Diagnosis: Bitten by cat;Open wound of lower leg;Local infection of the skin and subcutaneous tissue, unspecified Presentation: 03/30 13:33 Chief complaint: Patient states: RLE cat bite 02/05. Had stitches, took all antibiotics. ll1 Site started getting red, swollen, infected for 3 days. Malodorous per patient. No fever. Coronavirus screen: Proceed with normal triage. Patient denies a cough. Patient denies shortness of breath or difficulty breathing. Patient denies measured and/or subjective temperature greater than 100.4F prior to today's visit. Patient denies travel on a cruise ship or to a country the [facility] currently lists as an affected area. Patient denies contact with known and/or suspected case of COVID-19. Ebola Screen: Patient denies travel to an Ebola-affected area in the 21 days before illness onset. Initial Sepsis Screen: Does the patient meet any 2 criteria? No. Patient's initial sepsis screen is negative. Risk Assessment: Do you want to hurt yourself or someone else? Patient reports no desire to harm self or others. Onset of symptoms was March 27, 2020. 13:33 Method Of Arrival: Ambulatory ll1 13:33 Acuity: ANUJA 3 ll1 14:40 Initial Sepsis Screen: Does the patient have a suspected source of infection? Yes: Skin sv breakdown/wound. Historical: - Allergies: 13:36 Aleve; ll1 - PMHx: 13:36 Atrial Fib; Hypertension; Kidney stones; swelling of legs; ll1 - PSHx: 13:36 kidney surg; ll1 - Immunization history:: Flu vaccine is up to date. - Social history:: Smoking status: Patient denies any tobacco usage or history of. Patient/guardian denies using alcohol, street drugs, tobacco products. Screenin:40 Abuse screen: Denies threats or abuse. Denies injuries from another. Nutritional sv screening: No deficits noted. Tuberculosis screening: No symptoms or risk factors identified. Fall Risk None identified. Assessment: 14:55 General: Appears in no apparent distress. uncomfortable, well groomed, well developed, Behavior is calm, cooperative, appropriate for age. Pain: Complains of pain in lateral aspect of right calf Pain currently is 8 out of 10 on a pain scale. Pain began 02/06/20 Is continuous. Neuro: Level of Consciousness is awake, alert, obeys commands, Oriented to person, place, time, situation, Moves all extremities. Full function Gait is steady, Speech is normal. Respiratory: Airway is patent Respiratory effort is even, unlabored, Respiratory pattern is regular, symmetrical. Derm: Skin is intact, is healthy with good turgor, Skin is pink, warm \T\ dry. Wound noted lateral aspect of right calf Wound is open wound, unable to see the wound bed, odorous, with sutures still in place. Musculoskeletal: Range of motion: intact in all extremities, Swelling present in lateral aspect of right calf, right calf, medial aspect of right calf and right stiles redness noted. 15:52 Reassessment: Pt up for discharge, but I am waiting for Doxycycline to come from the pharmacy and to be given to the pt. 16:35 Reassessment: Patient appears in no apparent distress at this time. No changes from previously documented assessment. Patient and/or family updated on plan of care and expected duration. Pain level reassessed. Patient is alert, oriented x 3, equal unlabored respirations, skin warm/dry/pink. 17:25 Reassessment: Patient appears in no apparent distress at this time. No changes from previously documented assessment. Patient and/or family updated on plan of care and expected duration. Pain level reassessed. Patient is alert, oriented x 3, equal unlabored respirations, skin warm/dry/pink. Vital Signs: 13:33 BP 126 / 76; Pulse 66; Resp 17; Temp 98.1; Pulse Ox 98% ; Pain 8/10; ll1 ED Course: 13:29 Patient arrived in ED. bp1 13:36 Triage completed. ll1 13:36 Arm band placed on. ll1 13:42 Cyrstal Bell [facility]C [facility] kb 13:42 Rashad Solitario MD is Attending Physician. kb 14:36 Tessa Walker RN is Primary Nurse. sv 14:40 Patient has correct armband on for positive identification. Bed in low position. Call sv light in reach. Door closed. Head of bed elevated. 14:55 First set of blood cultures drawn by me. Inserted saline lock: 20 gauge in left sv antecubital area, using aseptic technique. Blood collected. Flushed left antecubital with 5 ml normal saline. 15:10 Second set of blood cultures drawn by me, Wound culture swab sent to lab. sv 15:20 One-on-one care X 30 minutes. sv 15:20 Wound care: was soaked in normal saline solution. sv 15:34 CBC with Diff Sent. sv 16:33 Wound care: to cat bite located on lateral aspect of right calf was cleaned with sv Hibiclens, dressed with 4X4s, cling, wet to dry dressing, Patient tolerated well. 17:25 No provider procedures requiring assistance completed. IV discontinued, intact, sv bleeding controlled, No redness/swelling at site. Pressure dressing applied. Administered Medications: 15:31 CANCELLED (Duplicate Order): Doxycycline 100 mg PO once kb 16:15 Drug: Doxycycline 100 mg Route: IV; Rate: calculated rate; Site: left antecubital; sv 17:24 Follow up: Response: No adverse reaction; IV Status: Completed infusion; IV Intake: sv 100ml 17:24 Drug: Bactrim (160 mg-800 mg (DS) 1 tablet Route: PO; sv 17:25 Follow up: Response: Medication administered at discharge. sv Intake: 17:24 IV: 100ml; Total: 100ml. sv Outcome: 15:52 Discharge ordered by MD. kb 17:25 Discharged to home ambulatory. sv 17:25 Condition: stable 17:25 Condition: improved 17:25 Discharge instructions given to patient, Instructed on discharge instructions, follow up and referral plans. medication usage, wound care, Demonstrated understanding of instructions, follow-up care, medications, wound care, Prescriptions given X 3. 17:25 Patient left the ED. sv Addendum: 04/03/2020 17:45 Addendum: Culture Results: Positive wound culture. No further action required. Bacteria i w sensitive to prescribed antibiotic. Signatures: Crystal Bell, KELLY-C CREW ATTENDANT-Tessa Lopez RN CHRISTIAN sv Viji Ibrahim RN RN Carrie Harris RN RN [facility] Alyson Wesley [facility] Corrections: (The following items were deleted from the chart) 03/30 14:13 13:36 Arm band placed on Patient placed in an exam room, on a stretcher, ll1 ll1
--- NOTE | 2020-03-30 15:53 | EDPHYS ---
Physician Documentation [facility] Name: Abebe Marquez Age: 54 yrs Sex: Male : 1965 Arrival Date: 03/30/2020 Time: 13:29 Bed 16 Private MD: ED Physician Rashad Solitario HPI: 03/30 15:48 This 54 yrs old Male presents to ER via Ambulatory with complaints of Cat kb Bite, Leg Infection by Cat bite. 15:48 The patient was bitten on the lateral aspect of right calf, by a cat, at home. Onset: kb The symptoms/episode began/occurred last month. Secondary to the bite the patient reports erythema, pain, swelling, warmth. Associated signs and symptoms: Pertinent positives: erythema at site, swelling at site. Severity of symptoms: At their worst the symptoms were moderate, in the emergency department the symptoms have improved, moderately. The patient has not experienced similar symptoms in the past. The patient has been recently seen at the [facility] Emergency Department, last month. Pt states he was bit by a cat about a month ago. States he came here, had sutures placed and was started on antibiotics. States he completed the antibiotics and the wound has been healing, but over the last week it started to drain and get red and warm around it. . Historical: - Allergies: 13:36 Aleve; ll1 - PMHx: 13:36 Atrial Fib; Hypertension; Kidney stones; swelling of legs; ll1 - PSHx: 13:36 kidney surg; ll1 - Immunization history:: Flu vaccine is up to date. - Social history:: Smoking status: Patient denies any tobacco usage or history of. Patient/guardian denies using alcohol, street drugs, tobacco products. ROS: 15:46 Constitutional: Negative for fever, chills, and weight loss, Cardiovascular: Negative kb for chest pain, palpitations, and edema, Respiratory: Negative for shortness of breath, cough, wheezing, and pleuritic chest pain, Abdomen/GI: Negative for abdominal pain, nausea, vomiting, diarrhea, and constipation, Back: Negative for injury and pain, MS/Extremity: Negative for injury and deformity, Neuro: Negative for headache, weakness, numbness, tingling, and seizure. 15:46 Skin: Positive for cellulitis, erythema, swelling, of the lateral aspect of right calf, open wound. Exam: 15:46 Constitutional: This is a well developed, well nourished patient who is awake, alert, kb and in no acute distress. Head/Face: Normocephalic, atraumatic. Chest/axilla: Normal chest wall appearance and motion. Nontender with no deformity. No lesions are appreciated. Cardiovascular: Regular rate and rhythm with a normal S1 and S2. No gallops, murmurs, or rubs. Normal PMI, no JVD. No pulse deficits. Respiratory: Lungs have equal breath sounds bilaterally, clear to auscultation and percussion. No rales, rhonchi or wheezes noted. No increased work of breathing, no retractions or nasal flaring. Abdomen/GI: Soft, non-tender, with normal bowel sounds. No distension or tympany. No guarding or rebound. No evidence of tenderness throughout. MS/ Extremity: Pulses equal, no cyanosis. Neurovascular intact. Full, normal range of motion. Neuro: Awake and alert, GCS 15, oriented to person, place, time, and situation. Cranial nerves II-XII grossly intact. Motor strength 5/5 in all extremities. Sensory grossly intact. Cerebellar exam normal. Normal gait. 15:46 Skin: injury, open wound of lateral right calf with purulent drainage and mild surrounding cellulitis. Vital Signs: 13:33 BP 126 / 76; Pulse 66; Resp 17; Temp 98.1; Pulse Ox 98% ; Pain 8/10; ll1 MDM: 14:44 Patient medically screened. kb 15:43 Data reviewed: vital signs, nurses notes. Data interpreted: Pulse oximetry: on room air kb is 98 %. Interpretation: normal. Counseling: I had a detailed discussion with the patient and/or guardian regarding: the historical points, exam findings, and any diagnostic results supporting the discharge/admit diagnosis, lab results, the need for outpatient follow up, a family practitioner, to return to the emergency department if symptoms worsen or persist or if there are any questions or concerns that arise at home. 03/30 14:57 Order name: CBC with Diff 03/30 14:57 Order name: Basic Metabolic Panel; Complete Time: 15:52 03/30 14:57 Order name: Blood Culture Adult (2) 03/30 14:57 Order name: Wound Culture 03/30 14:58 Order name: CBC with Automated Diff; Complete Time: 15:32 EDMI 03/30 14:57 Order name: IV Start; Complete Time: 15:18 kb 03/30 14:57 Order name: Wound Care; Complete Time: 16:33 kb Administered Medications: 15:31 CANCELLED (Duplicate Order): Doxycycline 100 mg PO once kb 16:15 Drug: Doxycycline 100 mg Route: IV; Rate: calculated rate; Site: left antecubital; sv 17:24 Follow up: Response: No adverse reaction; IV Status: Completed infusion; IV Intake: sv 100ml 17:24 Drug: Bactrim (160 mg-800 mg (DS) 1 tablet Route: PO; sv 17:25 Follow up: Response: Medication administered at discharge. sv Disposition: 03/31 08:36 Co-signature as Attending Physician, Rashad Solitario MD I agree with the assessment and kdr plan of care. Disposition: 03/30/20 15:52 Discharged to Home. Impression: Bitten by cat, Open wound of lower leg, Local infection of the skin and subcutaneous tissue, unspecified. - Condition is Stable. - Discharge Instructions: Animal Bite, [id number]-xz-[id number], Wound Infection, Rnvj-yd-Gowy. - Prescriptions for Doxycycline Hyclate 100 mg Oral Tablet - take 1 tablet by ORAL route every 12 hours; 20 tablet. Bactrim DS 800- 160 mg Oral Tablet - take 1 tablet by ORAL route every 12 hours for 10 days; 20 tablet. Tramadol 50 mg Oral Tablet - take 1 tablet by ORAL route every 8 hours as needed; 12 tablet. - Medication Reconciliation Form, Thank You Letter, Antibiotic Education, Prescription Opioid Use form. - Follow up: Emergency Department; When: As needed; Reason: Worsening of condition. Follow up: Private Physician; When: 2 - 3 days; Reason: Recheck today's complaints, Continuance of care, Re-evaluation by your physician. Signatures: Dispatcher [employer] [facility] Crystal Bell FNP-C FNP-Ckb Verde, Stephanie RN RN Rashad Lara MD MD kdr Lewis, Lynsay RN RN ll1 Corrections: (The following items were deleted from the chart) 03/30 15:31 15:15 Doxycycline 100 mg PO once ordered. kb kb 17:25 15:52 03/30/2020 15:52 Discharged to Home. Impression: Bitten by cat; Open wound of sv lower leg; Local infection of the skin and subcutaneous tissue, unspecified. Condition is Stable. Discharge Instructions: Animal Bite, Iudz-ef-Kjus, Wound Infection, Cznf-lg-Guft. Prescriptions for Doxycycline Hyclate 100 mg Oral Tablet - take 1 tablet by ORAL route every 12 hours; 20 tablet, Bactrim DS 800-160 mg Oral Tablet - take 1 tablet by ORAL route every 12 hours for 10 days; 20 tablet. and Forms are Medication Reconciliation Form, Thank You Letter, Antibiotic Education, Prescription Opioid Use. Follow up: Emergency Department; When: As needed; Reason: Worsening of condition. Follow up: Private Physician; When: 2 - 3 days; Reason: Recheck today's complaints, Continuance of care, Re-evaluation by your physician. kb
[2020-03-30] MEDS ORDERED: DOXYCYCLINE 100 MG in NA CHLORIDE 0.9% 100 ML IVPB ONE (16:00)
[2020-03-30] MEDS ORDERED: SMZ./TMP. 800/160 MG TABLET ONE (16:59)
[2020-03-30 17:55] VITALS: BP 126/76; TEMP 98.1; O2SAT 98
== END 2020-03-30 17:25 | disposition home or self-care (01) ==
LOC: ER 13:25
DX: S81.801A Unspecified open wound, right lower leg, initial encounter (principal); L08.9 Local infection of the skin and subcutaneous tissue, unspecified; W55.01XA Bitten by cat, initial encounter; Y93.9 Activity, unspecified; Y92.9 Unspecified place or not applicable
CPT/HCPCS: 36415; 80048; 85025; 87040; 87070; 87077; 87186; 87205; 96365; 99284

== ENCOUNTER 2020-10-19 16:55 | Inpatient (IN) | payer OTHER, SELFPAY ==
--- OUTSIDE RECORDS SUMMARY | 2020-10-19 16:57 | XMS REPORT | Clinical Summary ---
:1965 Author Organization [facility] Address [address] [place] [address] Care Team Providers Name Role Phone Dwight [...] mouth daily. Active Problems Not on file Surgical History Surgery Date Site/Laterality Comments LITHOTRIPSY Medical History Medical History Date Comments Hypertension Kidney stone CHF (congestive heart failure) (HCC) Social History Tobacco Use Types Packs/Day Years Used Date Unknown If Ever Smoked Alcohol Use Drinks/Week oz/Week Comments Defer Sex Assigned at Date Recorded Not on file Last Filed Vital Signs Not on file Plan of Treatment Health Maintenance Due Date Last Done Comments COVID-19 VACCINE (#1) 1981 COLONOSCOPY SCREENING 2015 SHINGLES VACCINES (#1) 2015 INFLUENZA VACCINE 05/12/2020 Results Not on fileafter 10/19/2019 Insurance Payer Benefit Plan / Subscriber ID Effective Dates Phone Addre ss Type Group MEDICARE MEDICARE PART A [id number] 2011-Present [place] Medicare AND B Advance Directives For more information, please contact: [phone] Type Date Recorded Patient Wet Process Miller Head Explanati on Advance Directives, Living Will and Medical Power of Electric Bath Attendant
--- OUTSIDE RECORDS SUMMARY | 2020-10-19 16:57 | XMS REPORT | Clinical Summary ---
:1965 Author Organization [facility] Address [address] [place] [address] Care Team Providers Name Role Phone Matilde Valencia MD Primary Care Provider [phone] Allergies Active Allergy Reactions Severity Noted Date Comments Naproxen Sodium Swelling 02/05/2016 Lips Medications Medication Sig Dispensed Refills Start Date End Date Status carvedilol (COREG) 25 Take 25 mg by 0 Active MG tabletIndications: mouth 2 (two) hypertension times daily with breakfast and dinner. lisinopril Take 20 mg by 0 Activ e (PRINIVIL,ZESTRIL) 20 mouth daily. MG tabletIndications: hypertension furosemide (LASIX) 20 Take 20 mg by [...] to ston e 04/16/2017 Obstructive uropathy 03/22/2016 ASNTOS (acute kidney injury) 02/06/2016 Renal stone 02/06/2016 [...] Not on file Implants Implanted Type Area Environmental Aide Device Shelf Model / Identifier Expiration Serial / Date Lot Stent Jolie Turner [id number] 192-133 - [id number] Stents-Pe Left: B OSTON 01/09/2019 192-133 / Implanted: Qty: 1 on 04/01/2016 by John Padilla MD at [facility] ripheral Ureter SCI:UROLOGY/GYNE / COLOGY [id number] Set Stent Injection 6x28cm 185-615 - [id number] Uro Stent Left: BOSTON 02/20/2019 185-615 / Implanted: Qty: 1 on 04/21/2017 by John Padilla MD at [facility] [employer] SCI:ONCOLOGY / [id number] Results Not on fileafter 10/19/2019 Insurance Payer Benefit Plan / Subscriber ID Effective Dates Phone Addre ss Type Group [employer] TEXAN[employer]US HMO [id number] Contracted ALL t Advance Directives For more information, please contact: [phone] Code Status Date Activated Date Inactivated Comments Full Code 04/16/2017 6:26 PM 04/17/2017 4:16 PM This code status was determined by: Patient Full Code 03/22/2016 10:44 PM 03/25/2016 12:01 AM This code status was determined by: Patient Full Code 02/05/2016 3:26 AM 02/08/2016 8:25 PM This code status was determined by: Patient
--- OUTSIDE RECORDS SUMMARY | 2020-10-19 16:58 | XMS REPORT ---
:1965 Author Organization [facility] Address [address] [place], [address] [place] [address] Care Team Providers Name Role Phone Torres Unavailable [phone] PROBLEMS Type Condition ICD9-CM [id number] Onset Condition SNOMED Code Notes Code Code Dates Status Problem Other chronic pain G89.29 Active 16300554 Problem Abnormal urine R82.90 Active 890436397 Problem Pain in left knee M25.562 Active 01484939956078 2 Problem Hypertriglyceridemia E78.1 Active 606414052 Problem Hypokalemia E87.6 Active 14177670 Problem Hyperglycemia R73.9 Active 04801427 Problem 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 413729136 Problem Obstructive sleep G47.33 Active 69247241 apnea (adult) (pediatric) Problem Morbid obesity E66.01 Active 901867474 Problem Pain in right knee M25.561 Active 06138435 Problem Hyperlipidemia, E78.5 Active 42533054 unspecified hyperlipidemia type Problem Skin lesion L98.9 Active 90583682 Skin tag located at medial upper right eyelid; growing in size. Problem Prediabetes R73.03 Active 780887288 Problem Elevated serum R79.89 Active 112262509 creatinine Problem Morbid (severe) E66.01 Active 746927040 obesity due to excess calories Problem Body mass index Z68.41 Active 984687532 (BMI) of 40.0-44.9 in adult Problem Chronic kidney N18.9 Active 322293737 disease, unspecified CKD stage Problem Dependence on CPAP Z99.89 Active 937492225 ventilation Problem Hypoxia R09.02 Active 467473389 Problem Obesity (BMI E66.9 Active 546096879 30-39.9) Problem On supplemental Z99.81 Active 221855208073 oxygen therapy Problem Edema R60.9 Active 06838523 Problem Kidney stones N20.0 Active 38862703 Problem Hypertension I10 Active 78267417 Problem Peripheral edema R60.9 Active 767978860 Problem Obstructive sleep G47.33 Active 84542777 apnea Problem Type 2 diabetes E11.65 Active 940081250199447 mellitus with hyperglycemia Problem 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 ALLERGIES Allergen (clinical Drug/Non Drug Reaction Allergy Type Onset Date S tatus drug ingredient) Allergy documented on EMR naproxen Aleve([facility] Lip swelling Drug Allergy Active Code:[address]-95) ENCOUNTERS from 1965 to 2020-10-01 Encounter Location Date Provider Diagnosis [facility] [address] [facility] [address] [facility] [place] [id number] IMMUNIZATIONS No Information SOCIAL HISTORY Tobacco Use: Social History Observation Description Date Details (start date - stop date) Never Smoker Sex Assigned At : Social History Observation Description Sex Assigned At Unknown Alcohol Screen Question Answer Notes Did you have a drink containing alcohol in the past year? Ye s Points 0 Interpretation Negative Tobacco Use/Smoking Question Answer Notes Are you a never smoker REASON FOR REFERRAL No Information VITAL SIGNS No information MEDICATIONS Medication SIG (Take, Route, Notes Start Date End Date Status Frequency, Duration) Metformin HCl 500 MG 1 tablet with a meal; Active for diabetes Orally Twice daily for 90 days Ibuprofen 400 MG 1 tablet with food or Active milk as needed Orally Three times a day Furosemide 20 MG 1 tablet as needed for Active swelling Orally Once a day for 90 days Flomax 0.4 MG 1 capsule Orally Once Active a day for 90 days Blood Glucose Monitor as directed (DISPENSE Apr, Active BLOOD GLUCOSE MONITOR FORMULARY TO INSURANCE) as directed Test BS once daily for 365 days Belviq 10 MG 1 tablet Orally Twice N ot-Taking a day Gabapentin 300 MG 1 capsule as needed Active for pain Orally Three times a day for 90 days Multivitamin - Orally Active Blood Glucose Test Strip as directed (DISPENSE Apr, 201 8 Active BLOOD GLUCOSE TEST STRIPS FORMULARY TO INSURANCE) as directed Test BS once daily for 90 days Cardura 1 MG 1 tablet in evening Mar, N ot-Taking for high blood pressure Orally Once a day for 30 day(s) Lancets - as directed (dispense Apr, A ctive lancets formulary to insurance) as directed Test BS once daily for 90 days Lisinopril 20 MG 1 tablet Orally Once Active daily for 30 Lamisil 250 MG 1 tablet Orally Once a Not-Taking day Coreg 25 MG 1 tablet Orally Twice Ac tive a day for 30 days PROCEDURES No Information RESULTS No Results REASON FOR VISIT Med Refill MEDICAL (GENERAL) HISTORY Type Description Date Medical History Hypertension Medical History Edema Medical History Abnormal urine Medical History Hypokalemia Medical History Hyperglycemia Medical History Hypertriglyceridemia Medical History Eosinophilia Surgical History S/p 2 urological treatments for kidney s tones Goals Section No Information Health Concerns No Information MEDICAL EQUIPMENT No Information MENTAL STATUS No Information FUNCTIONAL STATUS No Information ASSESSMENTS Encounter Date Diagnosis Assessment Notes Treatment Notes Treatm ent Clinical Notes Sep, Essential hypertension (ICD-10 - I10) PLAN OF TREATMENT Medication Medication Name Sig Start Date Stop Date Coreg 25 MG 1 tablet Orally Twice a day for 30 days Lisinopril 20 MG 1 tablet Orally Once daily for 30 Next Appt Details Provider Name:[facility] Mal Brian, 2020-10-22 01:30:00 PM, [address], [address], [place], [address], Insurance Providers Payer Name Payer Address Payer Insured Patient Coverage Cover age End Phone Name Relationship to Start Date Tomer e Insured [employer] [address] [address] [phone] Kuldeep Marquez self MEDICARE [place] [address] [phone]
--- OUTSIDE RECORDS SUMMARY | 2020-10-19 16:58 | XMS REPORT ---
:1965 Author Organization [facility] Address [address] [place], [address] [place] [address] Care Team Providers Name Role Phone Torres Unavailable [phone] PROBLEMS Type Condition ICD9-CM QCW31-DV Onset Condition SNOMED Code Notes Code Code Dates Status Problem Other chronic pain G89.29 Active 51403390 Problem Abnormal urine R82.90 Active 719948785 Problem Pain in left knee M25.562 Active 79351029636727 2 Problem Hypertriglyceridemia E78.1 Active 765026405 Problem Hypokalemia E87.6 Active 41423327 Problem Hyperglycemia R73.9 Active 57028948 Problem 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 028340792 Problem Obstructive sleep G47.33 Active 14421868 apnea (adult) (pediatric) Problem Morbid obesity E66.01 Active 558901672 Problem Pain in right knee M25.561 Active 45332346 Problem Hyperlipidemia, E78.5 Active 73980674 unspecified hyperlipidemia type Problem Skin lesion L98.9 Active 31054034 Skin tag located at medial upper right eyelid; growing in size. Problem Prediabetes R73.03 Active 213093855 Problem Elevated serum R79.89 Active 945079201 creatinine Problem Morbid (severe) E66.01 Active 349037103 obesity due to excess calories Problem Body mass index Z68.41 Active 053157225 (BMI) of 40.0-44.9 in adult Problem Chronic kidney N18.9 Active 301098283 disease, unspecified CKD stage Problem Dependence on CPAP Z99.89 Active 528612854 ventilation Problem Hypoxia R09.02 Active 577768826 Problem Obesity (BMI E66.9 Active 127698980 30-39.9) Problem On supplemental Z99.81 Active 022958501034 oxygen therapy Problem Edema R60.9 Active 82519770 Problem Kidney stones N20.0 Active 64231971 Problem Hypertension I10 Active 38774131 Problem Peripheral edema R60.9 Active 265583548 Problem Obstructive sleep G47.33 Active 65770010 apnea Problem Type 2 diabetes E11.65 Active 885215800959149 mellitus with hyperglycemia Problem 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 ALLERGIES Allergen (clinical Drug/Non Drug Reaction Allergy Type Onset Date S tatus drug ingredient) Allergy documented on EMR naproxen Aleve([facility] Lip swelling Drug Allergy Active Code:[address]-01) ENCOUNTERS from 1965 to 2020-09-25 Encounter Location Date Provider Diagnosis [facility] [address] [facility] [address], [place] [address] IMMUNIZATIONS No Information SOCIAL HISTORY Tobacco Use: [...] No Information FUNCTIONAL STATUS No Information ASSESSMENTS No Information PLAN OF TREATMENT Medication Medication Name Sig Start Date Stop Date Coreg 25 MG 1 tablet Orally Twice a day for 30 days Lisinopril 20 MG 1 tablet Orally Once daily for 30 Next Appt Details Provider Name:Ladarius Shell, 2020-10-02 02:00 :00 PM, [address] [facility], [place], [address], Insurance Providers Payer Name Payer Address Payer Insured Patient Coverage Cover age End Phone Name Relationship to Start Date Tomer e Insured [employer] [address] [address] [phone] Kuldeep Marquez self [place] [address] [place] [phone]
--- OUTSIDE RECORDS SUMMARY | 2020-10-19 16:58 | XMS REPORT | Continuity of Care Document ---
:1965 Author Organization [facility] t Address [address] [place] [address] Care Team Providers Name Role Phone Nickolas PEÑA SPriyank Primary Care Physician JOSSELIN BOSWELL Attending Clinician Unavailable JOSSELIN BOSWELL Admitting Clinician Unavailable Problems Condition Condition Condition Status Onset Resolution Last Treating Co mments Source Name Details Category Date Date Treatment Clinician Date Complicate Complicate Disease Active [facility]TI [facility] UTI 04[facility]16 [facility] - (urinary (urinary 00:00: Medica l tract tract 00 Center infection) infection) Obstructio Obstructio Disease Active [facility] of left n of left 04-16 [facility] - ureteropel ureteropel 00:00: Me dical maribel maribel 00 Center junction junction due to due to stone stone Obstructiv Obstructiv Disease Active [facility] uropathy e uropathy - Carm[facility] kes - 00:00: Medical 00 Center SANTOS (acute SANTOS (acute Disease Active [facility] kidney kidney 02-05 [facility] - injury) injury) 00:00: Medical 00 Center Renal Renal Disease Active [facility] stone stone 02-05 [facility] - [facility] 00 Center Hydronephr Hydronephr Disease Active 2016-[address] osis osis 02-05 [facility] - 00:[facility]: Medical 00 [place] HTN HTN Disease Active [facility] (hypertens (hypertens 02-05 [facility] - ion) ion) 00:00: Medical 00 [place] Septic Septic Disease Active [facility] shock shock 02-04 [facility] - 00:[facility]: Medical 00 [place] Allergies, Adverse Reactions, Alerts Allergy Allergy Status Severity Reaction(s) Onset Inactive Treating Comm ents Source Name Type Date Date Clinician Naproxen Drug Active Swelling Lips [facility] Sodium Allergy 02-04 [facility] - 00:[facility]: Medical 00 [place] Aleve Adverse Active Lip swelling [facility] Social History Social Habit Start Date Stop Date Quantity Comments Source Sex Assigned At [facility] Tobacco use and 2017-04-22 2017-04-[address] [facility] Carmen kes - exposure 00:00:00 00:00:00 [facility] Alcohol intake 2017-04-22 2017-04-22 Current drinker of [facility] 00:[facility]00 00:00:00 alcohol (finding) [facility] Alcohol Comment 2017-04-17 2017-04-[address] [facility] - 00:00:00 00:00:00 [facility] Smoking Status Start Date Stop Date Source Never smoker [facility] Medications Ordered Filled Start Stop Current Ordering Indication Dosage Frequency Signature Comments Components Source Medication Medication Date Date Medication? Clinician (SIG) Name Name carvedilol Yes hypertensio 25mg Take [address] [facility] (COREG) 25 7-11 n by mouth 2 [place] [facility] - MG tablet 19:29: (two) Medical 58 times Center daily with breakfast and dinner. lisinopril Yes hypertensio 20mg QD Take [address] (PRINIVIL,Z 7-11 n by mouth [facility] - ESTRIL) 20 19:29: daily. Medic al MG tablet 58 Center furosemide Yes 20mg QD Take [address] (LASIX) 20 7-11 by mouth [facility] - MG tablet 19:29: daily. Medica l 58 Center doxycycline Yes 100mg Q.5D Take [address] (VIBRAMYCIN 7-11 mg by [facility] - ) 100 MG 19:29: mouth 2 Medica l capsule 58 (two) Center times daily. tamsulosin 0 Yes .4mg QD Take 1 [facility] (FLOMAX) 7-11 capsule [facility] - 0.4 mg Cp24 00:00: (0.4 mg Med ical 24 hr 00 total) by Center capsule mouth nightly. carvedilol 2015- Yes 12.5mg Q.5D Take 12.5 [place] (COREG) 6-10 mg by Methodi 12.5 MG 20:54: mouth 2 st tablet 02 (two) times a day with meals. furosemide 2015-0 Yes 20mg Q.5D Take 20 mg [place] (LASIX) 20 6-10 by mouth 2 Met hodi MG tablet 20:54: (two) st 02 times a day. lisinopril 0 Yes 10mg QD Take 10 mg [place] (PRINIVIL,Z 6-10 by mouth Meth vanessa ESTRIL) 10 20:54: daily. st MG tablet 02 meloxicam Yes 15mg QD Take 15 mg [place] (MOBIC) 15 6-10 by mouth Metho di MG tablet 20:54: daily. st 02 Lisinopril Lisinopril Yes Matilde [address] [facility] Coreg Coreg Yes Matilde [address] [facility] Procedures This patient has no known procedures. Plan of Care Planned Activity Planned Date Details Comments Source Future Scheduled 2020-05-12 INFLUENZA VACCINE [facility] 00:00:00 [code = INFLUENZA VACCINE] Future Scheduled 2015 COLONOSCOPY SCREENING [facility] 00:00:00 [code = COLONOSCOPY SCREENING] Future Scheduled 2015 SHINGLES VACCINES [facility] 00:00:00 (#1) [code = SHINGLES VACCINES (#1)] Future Scheduled 1981 COVID-19 VACCINE (#1) [facility] 00:00:00 [code = COVID-19 VACCINE (#1)] Encounters Start End Encounter Admission Attending Care Care Encounter Source Date/Time Date/Time Type Type Clinicians Facility Department ID 2020-09-29 2020-09-29 Out[facility] [id number] 2020-09-17 2020[facility]09-17 Outpatient [facility] [id number] [facility] 2020-08-20 2020-08-20 [facility] [id number] 2020-02-17 2020-02-17 [facility] [id number] [address] 10:33:00 10:33:00 [facility] Medicine Outpati ent Clinics 2019-12-29 2019-12-29 [facility] [id number] 14:20:00 14:20:00 t [facility] Medicine Outpati ent Clinics 2019-11-09 2019-11-09 [facility] [id number] 08:45:00 08:45:00 t [facility] Medicine Outpati ent Clinics 2019-09-22 2019-09-22 [facility] [id number] 08:00:00 08:00:00 t [facility] Medicine Outpati ent Clinics 2019-09-14 2019-09-14 [facility] [id number] 15:33:00 15:33:00 t [facility] Medicine Outpati ent Clinics 2019-04-04 2019-04-04 [facility] [id number] 09:00:00 09:00:00 t [facility] Medicine Outpati ent Clinics 2019-03-25 2019-03-25 [facility] [id number] 14:39:00 14:39:00 t [facility] Medicine Outpati ent Clinics 2019-03-23 2019-03-23 [facility] [id number] 15:00:00 15:00:00 [facility] Medicine Outpati ent Clinics 2018-12-11 2018-12-11 [facility] [id number] 11:48:00 11:48:00 t [facility] Medicine Outpati ent Clinics 2018-12-08 2018-12-08 [facility] [id number] 14:45:00 14:45:00 t [facility] Medicine Outpati ent Clinics 2018-11-30 2018-11-30 [facility] [id number] 16:46:00 16:46:00 t [facility] Medicine Outpati ent Clinics 2018-09-23 2018-09-23 [facility] [id number] 11:45:00 11:45:00 t [facility] Medicine Outpati ent Clinics 2018-04-26 2018-04-26 [facility] [id number] 20[facility]50:00 20:50:00 t [facility] Medicine Outpati ent Clinics 2018-04-21 2018-04-21 [facility] [id number] 14[facility]30:00 14:30:00 t [facility] Medicine Outpati ent Clinics 2018-03-26 2018-03-26 [facility] [id number] 14:30:00 14:30:00 t [facility] Medicine Outpati ent Clinics 2018-01-19 2018-01-19 [facility] [id number] 13:30:00 13:30:00 t [facility] Medicine Outpati ent Clinics Results Test Description Test Time Test Comments Results Result Comments Source BLOOD CULTURE 2017-04-22 00:00:00 Test Item Value Reference Range Interpretation Comme nts CULTURE (BEAKER) (test code = 1095) No growth in 5 days BLOOD [id number] 00:00:00 Test Item Value Reference Range Interpretation Comments CULTURE (BEAKER) (test No growth in 5 days code = 1095) HEMOGLOBIN [id number] 21:56:00 Test Item Value Reference Range Interpretation Comments HEMOGLOBIN A1C (BEAKER) (test code = 6.7 % 4.3-6.1 H 368) T4, [id number] 12:30:00 Test Item Value Reference Range Interpretation Comments FREE T4 (BEAKER) (test code = 655) 0.74 ng/dL 0.70-1.48 TSH/FREE T4 IF [id number] 05:46:00 Test Item Value Reference Range Interpretation Comments THYROID STIMULATING HORMONE 5.17 uIU/mL 0.35-4.94 H (BEAKER) (test code = 772) [id number] 05:37:00 Test Item Value Reference Range Interpretation Comments FERRITIN (BEAKER) (test code = 361) 79 ng/mL 5-275 Effective 08/29/2014: Reference Range ChangeNew: Male 5-275 Previous: Male 22-322 Female 5-275 Female 90-928P-TDYT NATRIURETIC FACTOR (BNP)2017-04-17 05:22:00 Test Item Value [...] % 20-55 (test code = 2590) LIPID [id number] 05:12:00 Test Item Value Reference Range Interpretation [...] 160-189 Very High >=190URINALYSIS W/ REFLEX URINE [id number] 00:32:00 Test Item Value Reference Range Interpretation [...] 1574) Rare SOURCE(BEAKER) (test code = 2795) [id number] 22:20:00 Test Item Value Reference Range Interpretation [...] is 2.5-3.5 for patients with mechanical heart valves.[id number] 22:18:00 Test Item Value Reference Range Interpretation Comments MAGNESIUM (BEAKER) (test code = 1.7 mg/dL 1.6-2.6 627) BASIC METABOLIC [id number] 22:18:00 Test Item Value Reference Range Interpretation [...] APPLICABLE FOR DIALYSIS PATIEN TS. HEPATIC FUNCTION [id number] 22:18:00 Test Item Value Reference Range Interpretation [...] 6-55 347) CBC W/PLT COUNT & AUTO [id number] 22:12:00 Test Item Value Reference Range Interpretation [...]
--- OUTSIDE RECORDS SUMMARY | 2020-10-19 16:58 | XMS REPORT ---
:1965 Author Organization [facility] Address [address] [place], [place] [place] [address] Care Team Providers Name Role Phone Torres Unavailable [phone] PROBLEMS Type Condition ICD9-CM [id number] Onset Condition SNOMED Code Notes Code Code Dates Status Problem Other chronic pain G89.29 Active 35887935 Problem Abnormal urine R82.90 Active 688708190 Problem Pain in left knee M25.562 Active 23976878069762 2 Problem Hypertriglyceridemia E78.1 Active 365089434 Problem Hypokalemia E87.6 Active 11730651 Problem Hyperglycemia R73.9 Active 78416653 Problem 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 822217704 Problem Obstructive sleep G47.33 Active 10017888 apnea (adult) (pediatric) Problem Morbid obesity E66.01 Active 634760572 Problem Pain in right knee M25.561 Active 20124614 Problem Hyperlipidemia, E78.5 Active 24942169 unspecified hyperlipidemia type Problem Skin lesion L98.9 Active 52247804 Skin tag located at medial upper right eyelid; growing in size. Problem Prediabetes R73.03 Active 582897908 Problem Elevated serum R79.89 Active 159566414 creatinine Problem Morbid (severe) E66.01 Active 173343438 obesity due to excess calories Problem Body mass index Z68.41 Active 274642241 (BMI) of 40.0-44.9 in adult Problem Chronic kidney N18.9 Active 185209075 disease, unspecified CKD stage Problem Dependence on CPAP Z99.89 Active 373628063 ventilation Problem Hypoxia R09.02 Active 311115787 Problem Obesity (BMI E66.9 Active 530366707 30-39.9) Problem On supplemental Z99.81 Active 348324305579 oxygen therapy Problem Edema R60.9 Active 20627163 Problem Kidney stones N20.0 Active 85813777 Problem Hypertension I10 Active 09631037 Problem Peripheral edema R60.9 Active 384824904 Problem Obstructive sleep G47.33 Active 46516147 apnea Problem Type 2 diabetes E11.65 Active 539986359209390 mellitus with hyperglycemia Problem 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 ALLERGIES Allergen (clinical Drug/Non Drug Reaction Allergy Type Onset Date S tatus drug ingredient) Allergy documented on EMR naproxen Aleve([facility] Lip swelling Drug Allergy Active Code:[address]-11) ENCOUNTERS from 1965 to 2020-08-24 Encounter Location Date Provider Diagnosis [facility] [address] [facility] Aug, [facility] Medicine [address] [facility] [place] [place] [address] IMMUNIZATIONS No Information SOCIAL HISTORY Tobacco Use: [...] No information MEDICATIONS Medication SIG (Take, Route, Start Date End Date Status Frequency, Duration) Gabapentin 300 MG 1 capsule as needed for Active pain Orally Three times a day for 90 days Multivitamin - Orally Active Flomax 0.4 MG 1 capsule Orally Once a day Active for 90 days Ibuprofen 400 MG 1 tablet with food or milk Active as needed Orally Three times a day Furosemide 20 MG 1 tablet as needed for A ctive swelling Orally Once a day for 90 days Lancets - as directed (dispense Apr, Active lancets formulary to insurance) as directed Test BS once daily for 90 days Belviq 10 MG 1 tablet Orally Twice a day Not-Taking Lamisil 250 MG 1 tablet Orally Once a day Not-Taking Lisinopril 20 MG 1 tablet Orally Once daily Active for 30 days Metformin HCl 500 MG 1 tablet with a meal; for Active diabetes Orally Twice daily for 90 days Blood Glucose Test Strip as directed (DISPENSE BLOOD Apr, Active GLUCOSE TEST STRIPS FORMULARY TO INSURANCE) as directed Test BS once daily for 90 days Blood Glucose Monitor as directed (DISPENSE BLOOD Apr, Active GLUCOSE MONITOR FORMULARY TO INSURANCE) as directed Test BS once daily for 365 days Cardura 1 MG 1 tablet in evening for Mar, Not- Taking high blood pressure Orally Once a day for 30 day(s) Coreg 25 MG 1 tablet Orally Twice a day Active for 30 days PROCEDURES No Information RESULTS No Results REASON FOR VISIT Med refill MEDICAL (GENERAL) HISTORY Type Description Date Medical History Hypertension Medical History Edema Medical History Abnormal urine Medical History Hypokalemia Medical History Hyperglycemia Medical History Hypertriglyceridemia Medical History Eosinophilia Surgical History S/p 2 urological treatments for kidney s tones Goals Section No Information Health Concerns No Information MEDICAL EQUIPMENT No Information MENTAL STATUS No Information FUNCTIONAL STATUS No Information ASSESSMENTS Encounter Date Diagnosis Notes Aug, Essential hypertension (ICD-10 - I10) PLAN OF TREATMENT Medication Medication Name Sig Start Date Stop Date Coreg 25 MG 1 tablet Orally Twice a day for 30 days Lisinopril 20 MG 1 tablet Orally Once daily for 30 days Next Appt Details Provider Name:Ladarius Shell, 2020-09-17 04:00 :00 PM, [address] [facility], [address], [place], [address], Insurance Providers Payer Name Payer Address Payer Insured Patient Coverage Cover age End Phone Name Relationship to Start Date Tomer e Insured [employer] [address] [address] [phone] Kuldeep Marquez self MEDIC[place] [address] [place] [id number]
--- NOTE | 2020-10-19 18:22 | RAD REPORT ---
EXAM DESCRIPTION: CT - Stone Protocol - 10/19/2020 5:49 pm CLINICAL HISTORY: FLANK PAIN, right-side diarrhea, diminished urine output COMPARISON: <Comparisons> TECHNIQUE: Axial 3 mm thick images were obtained without oral or IV contrast. The [id number] span s the entirety of the system including uppermost abdomen and lung bases. All CT scans are performed using dose optimization technique as appropriate and may include automated exposure control or mA/KV adjustment according to patient size. FINDINGS: No hydronephrosis is present and no obstructing ureteral calculi. Enlarged 14-15 millimete r calcification within the parenchyma lower pole left kidney again noted. Several calyx calculi are p resent. No right-sided calculi. There are multiple ill-defined low-density areas in the right kidney similar to 2017. These are probably cysts but are not fully evaluated on noncontrast imaging. Isodens e masses and pyelonephritis are not excluded on stone protocol study. No significant adrenal finding. No urinary bladder suspicious finding. Imaged portions of the liver, spleen and pancreas show no suspicious findings on non-contrast imaging . No gallbladder or biliary tree abnormality identified. Large amount of fluid fills and distends the stomach with no gastric wall thickening. Gastric antrum is more limited in detail. No inflammatory stranding around the antrum. No dilated large or small bow el loops. No appendicitis findings. No mass or bulky lymphadenopathy. Bilateral fat filled inguinal hernias are present. Fat only umbilic al hernia present. No free air or pneumatosis. No free fluid collection. Disc and bone degenerative changes are present. IMPRESSION: No hydronephrosis, obstructing calculus or acute finding identified. Isodense masses and pyelonephritis are not excluded on stone protocol technique. findings are simil ar to 2017. No active or acute large or small bowel finding. Fluid distends the stomach. The gastric antrum asses sment is limited in evaluating mass or wall thickening. There is no surrounding inflammatory strandin g. .
[2020-10-19] MEDS ORDERED: NA CHLORIDE 0.9% 1,000 ML ONE ×2 (21:24→23:12)
[2020-10-19] MEDS ORDERED: METHYLPREDNISOLONE 125 MG INJ ONE (21:24)
[2020-10-19] MEDS ORDERED: DIPHENHYDRAMINE 50 MG/ML VIAL ONE (21:25)
[2020-10-19] MEDS ORDERED: FAMOTIDINE 20 MG/2 ML VIAL IV ONE (21:25)
[2020-10-19 21:32] LABS: Absolute Lymphocytes (CBC) 1.1 K/uL (0.7-4.9); Basophils % 0.2 % (0-1.3); Hematocrit 47.8 % (39.6-49.0); Lymphocytes % 11.1 % (15.3-44.8); MPV 9.6 fL (7.6-11.3); RBC Red Blood Cell Count 5.16 M/uL (4.33-5.43)
[2020-10-19 21:46] LABS: Potassium 4.2 mmol/L (3.5-5.1)
--- NOTE | 2020-10-19 22:24 | EDPHYS ---
Physician Documentation [facility] Name: Abebe Marquez Age: 54 yrs Sex: Male : 1965 Arrival Date: 10/19/2020 Time: 16:56 Bed 17 Private MD: ED Physician Ozzy Ji HPI: 10/19 22:45 This 54 yrs old Male presents to ER via EMS with complaints of Flank Pain, kb Diarrhea, Urinary Problem. 22:45 The patient complains of pain in the right flank. The pain does not radiate. Onset: The kb symptoms/episode began/occurred this morning. Modifying factors: The symptoms are alleviated by nothing. the symptoms are aggravated by nothing. Associated signs and symptoms: Pertinent positives: diarrhea, unable to urinate today. Severity of pain: At its worst the pain was moderate in the emergency department the pain is unchanged. The patient has experienced similar episodes in the past, a few times. The patient has not recently seen a physician. Pt reports diarrhea since yesterday, inability to urinate today and right flank pain. States he has had similar flank pain before with kidney stones. Also reports he developed hives in the waiting room, unsure what the cause could be. Historical: - Allergies: 16:59 Aleve; ss - PMHx: 16:59 Atrial Fib; Hypertension; Kidney stones; swelling of legs; ss - PSHx: 16:59 kidney surg; ss - Immunization history:: Adult Immunizations up to date. - Social history:: Smoking status: unknown. ROS: 22:43 Constitutional: Negative for fever, chills, and weight loss, Cardiovascular: Negative kb for chest pain, palpitations, and edema, Respiratory: Negative for shortness of breath, cough, wheezing, and pleuritic chest pain, Back: Negative for injury and pain, MS/Extremity: Negative for injury and deformity, Neuro: Negative for headache, weakness, numbness, tingling, and seizure. 22:43 Abdomen/GI: Positive for diarrhea, Negative for abdominal pain, nausea and vomiting. 22:43 : Positive for flank pain, no urine output today. 22:44 Skin: Positive for rash, diffusely. kb Exam: 22:44 Constitutional: This is a well developed, well nourished patient who is awake, alert, kb and in no acute distress. Head/Face: Normocephalic, atraumatic. Chest/axilla: Normal chest wall appearance and motion. Nontender with no deformity. No lesions are appreciated. Cardiovascular: Regular rate and rhythm with a normal S1 and S2. No gallops, murmurs, or rubs. Normal PMI, no JVD. No pulse deficits. Respiratory: Lungs have equal breath sounds bilaterally, clear to auscultation and percussion. No rales, rhonchi or wheezes noted. No increased work of breathing, no retractions or nasal flaring. Abdomen/GI: Soft, non-tender, with normal bowel sounds. No distension or tympany. No guarding or rebound. No evidence of tenderness throughout. MS/ Extremity: Pulses equal, no cyanosis. Neurovascular intact. Full, normal range of motion. Neuro: Awake and alert, GCS 15, oriented to person, place, time, and situation. Cranial nerves II-XII grossly intact. Motor strength 5/5 in all extremities. Sensory grossly intact. Cerebellar exam normal. Normal gait. 22:44 Skin: consistent with urticaria, and is diffusely located. Vital Signs: 17:30 BP 110 / 70; Pulse 105; Resp 16; Temp 97.6(TE); Pulse Ox 98% on R/A; Weight 117.93 kg; ss Height 5 ft. 10 in. (177.80 cm); Pain 0/10; 21:00 BP 116 / 75; Pulse 89; Resp 18; Pulse Ox 97% on R/A; rv 22:00 BP 122 / 89; Pulse 93; Resp 17; Pulse Ox 97% on R/A; rv 22:45 BP 106 / 67; Pulse 79; Resp 15; Pulse Ox 97% on R/A; rv 17:30 Body Mass Index 37.31 (117.93 kg, 177.80 cm) ss MDM: 20:36 Patient medically screened. kb 22:43 Data reviewed: vital signs, nurses notes. Data interpreted: Pulse oximetry: on room air kb is 98 %. Interpretation: normal. Counseling: I had a detailed discussion with the patient and/or guardian regarding: the historical points, exam findings, and any diagnostic results supporting the discharge/admit diagnosis, lab results, radiology results, the need for further work-up and treatment in the hospital. Physician consultation: Julian ROBLES regarding admission, patient's condition, and will see patient in ED, shortly. 10/19 21:02 Order name: Basic Metabolic Panel; Complete Time: 21:48 kb 10/19 21:02 Order name: CBC with Diff; Complete Time: 21:40 kb 10/19 21:02 Order name: Stool Culture kb 10/19 21:02 Order name: C.difficile kb 10/19 22:49 Order name: COVID-19 kb 10/19 17:32 Order name: CT Stone Protocol; Complete Time: 20:35 kb 10/20 00:27 Order name: SARS-COV-2 RT PCR EDMS 10/19 21:02 Order name: IV Saline Lock; Complete Time: 21:15 kb 10/19 21:02 Order name: Labs collected and sent; Complete Time: 21:15 kb 10/19 21:15 Order name: Bladder Scanner; Complete Time: 22:21 kb Administered Medications: 21:08 Drug: NS 0.9% 1000 ml Route: IV; Rate: 1000 ml; Site: right antecubital; ca1 23:02 Follow up: IV Status: Completed infusion; IV Intake: 1000ml rv 21:09 Drug: Pepcid 20 mg Route: IVP; Site: right forearm; ca1 23:02 Follow up: Response: No adverse reaction rv 21:11 Drug: SOLU-Medrol 125 mg Route: IVP; Site: right forearm; ca1 23:02 Follow up: Response: No adverse reaction rv 21:15 Drug: Benadryl 12.5 mg Route: IVP; Site: right forearm; ca1 23:02 Follow up: Response: No adverse reaction rv 22:25 Drug: fentaNYL (PF) 25 mcg Route: IVP; Site: right forearm; rv 23:02 Follow up: Response: No adverse reaction; Marked relief of symptoms; Pain is decreased; rv RASS: Alert and Calm (0) 23:01 Drug: NS 0.9% 1000 ml Route: IV; Rate: 1000 ml; Site: right forearm; rv Disposition: 10/20 07:05 Co-signature as Attending Physician, Ozzy Ji MD. [email or web address] Disposition: 10/19/20 22:24 Hospitalization ordered by Sudhir Stephen for Observation. Preliminary diagnosis are Acute kidney failure, Diarrhea, unspecified, Urticaria. - Bed requested for [facility] ER HOLD. - Status is Observation. wh - Condition is Stable. - Problem is new. - Symptoms are unchanged. Signatures: Dispatcher [employer] EDCO Crystal Bell, CON[employer] BATTER[employer] CHARGER-C [employer] BAT[employer] CHARGER-Ckb Yael Garcia, RN CHRISTIAN ss Julissa Dewey, RN RN Mauricio Reich JesusMateo, RN CHRISTIAN rv Acob, Jillian, RN RN [facility] Ozzy Ji MD MD [email or web address] Corrections: (The following items were deleted from the chart) 10/19 22:44 22:43 Constitutional: Negative for fever, chills, and weight loss, Cardiovascular: kb Negative for chest pain, palpitations, and edema, Respiratory: Negative for shortness of breath, cough, wheezing, and pleuritic chest pain, Back: Negative for injury and pain, MS/Extremity: Negative for injury and deformity, Skin: Negative for injury, rash, and discoloration, Neuro: Negative for headache, weakness, numbness, tingling, and seizure, kb 23:10 22:24 Hospitalization Ordered by Sudhir Stephen DO for Observation. Preliminary cg diagnosis is Acute kidney failure; Diarrhea, unspecified; Urticaria. Bed requested for Telemetry/MedSurg (observation). Status is Observation. Condition is Stable. Problem is new. Symptoms are unchanged. kb 23:21 22:50 CORONAVIRUS ordered. [facility] EDCO 10/20 01:18 10/19 23:10 10/19/2020 22:24 Hospitalization Ordered by Sudhir Stephen DO for Observation. Preliminary diagnosis is Acute kidney failure; Diarrhea, unspecified; Urticaria. Bed requested for [facility] ER HOLD. Status is Observation. Condition is Stable. Problem is new. Symptoms are unchanged.
--- NOTE | 2020-10-19 22:24 | ER ---
Nurse's Notes [facility] Name: Abebe Marquez Age: 54 yrs Sex: Male : 1965 Arrival Date: 10/19/2020 Time: 16:56 Bed 17 Private MD: Diagnosis: Acute kidney failure;Diarrhea, unspecified;Urticaria Presentation: 10/19 16:57 Chief complaint: EMS states: R flank pain and diarrhea that began 24 hours ago. Has not ss urinated in 12 hours. Pt reports that the last time this happened it was a kidney stone. Coronavirus screen: Client denies travel out of the [place] in the last 14 days. Ebola Screen: Patient denies exposure to infectious person. Patient denies travel to an Ebola-affected area in the 21 days before illness onset. Initial Sepsis Screen: Does the patient have a suspected source of infection? No. Patient's initial sepsis screen is negative. Risk Assessment: Do you want to hurt yourself or someone else? Patient reports no desire to harm self or others. Onset of symptoms was October 18, 2020. 16:57 Method Of Arrival: EMS: [facility] ss 16:57 Acuity: ANUJA 3 ss 21:00 Initial Sepsis Screen: Does the patient meet any 2 criteria? RR > 20 per min. rv Historical: - Allergies: 16:59 Aleve; ss - PMHx: 16:59 Atrial Fib; Hypertension; Kidney stones; swelling of legs; ss - PSHx: 16:59 kidney surg; ss - Immunization history:: Adult Immunizations up to date. - Social history:: Smoking status: unknown. Screenin:00 Abuse screen: Denies threats or abuse. Denies injuries from another. rv 21:00 Nutritional screening: No deficits noted. Tuberculosis screening: No symptoms or risk rv factors identified. Fall Risk None identified. Assessment: 21:00 General: Appears comfortable, Behavior is calm, cooperative. rv 21:00 Pain: Complains of pain in right flank. Neuro: Level of Consciousness is awake, alert, rv obeys commands, Oriented to person, place, time, situation. Cardiovascular: Patient's skin is warm and dry. Respiratory: Airway is patent Respiratory effort is even, unlabored. GI: Abdomen is round non-distended. Derm: Skin is intact. Vital Signs: 17:30 BP 110 / 70; Pulse 105; Resp 16; Temp 97.6(TE); Pulse Ox 98% on R/A; Weight 117.93 kg; ss Height 5 ft. 10 in. (177.80 cm); Pain 0/10; 21:00 BP 116 / 75; Pulse 89; Resp 18; Pulse Ox 97% on R/A; rv 22:00 BP 122 / 89; Pulse 93; Resp 17; Pulse Ox 97% on R/A; rv 22:45 BP 106 / 67; Pulse 79; Resp 15; Pulse Ox 97% on R/A; rv 17:30 Body Mass Index 37.31 (117.93 kg, 177.80 cm) ED Course: 16:56 Patient arrived in ED. ss 16:58 Triage completed. ss 16:59 Arm band placed on right wrist. ss 17:50 CT Stone Protocol In Process Unspecified. EDMS 20:35 Crystal Bell FNP-C is [facility]. kb 20:35 Ozzy Ji MD is Attending Physician. kb 20:51 Jillian Perez RN is Primary Nurse. ca1 21:00 Patient has correct armband on for positive identification. Bed in low position. Call rv light in reach. Side rails up X 1. teletypesetter monitor on. Pulse ox on. NIBP on. 21:00 No provider procedures requiring assistance completed. rv 21:00 IV is patent, with fluids infusing freely. rv 21:05 Initial lab(s) drawn, by nh, sent to lab. Inserted saline lock: 20 gauge in right rv forearm, using aseptic technique. Blood collected. 22:20 Mateo Lee RN is Primary Nurse. rv 22:24 Sudhir Stephen DO is Hospitalizing Provider. kb 23:52 IV Patient admitted, IV remains in place. rv Administered Medications: 21:08 Drug: NS 0.9% 1000 ml Route: IV; Rate: 1000 ml; Site: right antecubital; ca1 23:02 Follow up: IV Status: Completed infusion; IV Intake: 1000ml rv 21:09 Drug: Pepcid 20 mg Route: IVP; Site: right forearm; ca1 23:02 Follow up: Response: No adverse reaction rv 21:11 Drug: SOLU-Medrol 125 mg Route: IVP; Site: right forearm; ca1 23:02 Follow up: Response: No adverse reaction rv 21:15 Drug: Benadryl 12.5 mg Route: IVP; Site: right forearm; ca1 23:02 Follow up: Response: No adverse reaction rv 22:25 Drug: fentaNYL (PF) 25 mcg Route: IVP; Site: right forearm; rv 23:02 Follow up: Response: No adverse reaction; Marked relief of symptoms; Pain is decreased; rv RASS: Alert and Calm (0) 23:01 Drug: NS 0.9% 1000 ml Route: IV; Rate: 1000 ml; Site: right forearm; rv Intake: 23:02 IV: 1000ml; Total: 1000ml. rv Outcome: 22:24 Decision to Hospitalize by Provider. kb 23:52 Admitted to ER Hold. Please see [facility] for further documentation. rv 23:52 Condition: good 23:52 Instructed on the need for admit. 10/20 01:17 Admitted to ER Hold. Please see [facility] for further documentation. Condition: stable Instructed on the need for admit. 01:18 Admitted to Report called to Jake Dewey RN 01:18 Patient left the ED. Signatures: Dispatcher [employer] EDMS Crystal Bell, PHOTOSTATIC COPY MAKER-C PHOTOSTATIC COPY MAKER-Yael Golden RN RN Mauricio Reich Mateo Lee RN RN Jillian Perez RN RN ca1
[2020-10-19] MEDS ORDERED: FENTANYL CITR 100 MCG/2 ML ONE (22:39)
--- NOTE | 2020-10-19 23:04 | P.HP ---
Certification for Inpatient Patient admitted to: Inpatient With expected LOS: >2 Midnights <Julian Ortiz - Last Filed: 10/19/20 22:59> Patient admitted to: Inpatient <Sudhir Stephen - Last Filed: 10/20/20 09:53> Patient History Date of Service: 10/19/20 Primary Care Provider: Dr. Torres Reason for admission: Acute kidney injury History of Present Illness: 54-year-old male with history of hypertension, diabetes mellitus type 2, sleep apnea, kidney stones presents to the emergency department for abdominal pain and diarrhea. Patient reports that he has had right flank pain since this morning with some changes in his stool which he frequently gets when he has a kidney stone, patient was evaluated in the emergency department with CT which did not reveal any acute intra-abdominal findings. Patient reports that he had not made urine all day, bladder scan was performed which revealed only 64 cc of the bladder. Labs reveal creatinine 2.64, last creatinine was in March 2020 which was 0.78. Patient did have episode approximately 5 years ago where he came in for similar complaints with a creatinine of 7.65, this was ultimately attributed to dehydration. GFR 25, BUN 48 CBC within normal limits. Patient does appear dry. Patient reports taking a daily aspirin 81 mg and is also prescribed lisinopril. Patient denies any recent antibiotic use. ED provider wishes to admit patient for further evaluation and management. 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 - Family History Family History: Reviewed- Non-Contributory - Social History Smoking Status: Never smoker Alcohol use: Yes CD- Drugs: No Caffeine use: Yes Place of Residence: Home <Julian Ortiz - Last Filed: 10/19/20 22:59> Date of Service: 10/20/20 Home medications list reviewed: Yes - Family History Family History: Reviewed- Non-Contributory <Sudhir Stephen - Last Filed: 10/20/20 09:53> Allergies naproxen [From Aleve] Allergy (Verified 02/04/16 16:12) Anaphylaxis Review of Systems 10-point ROS is otherwise unremarkable Gastrointestinal: Abdominal Pain, Diarrhea Genitourinary: Other (Oliguria) <Julian Ortiz - Last Filed: 10/19/20 22:59> Physical Examination - Physical Exam General: Alert, In no apparent distress HEENT: Atraumatic, PERRLA, Other (Mucous membranes dry) Neck: Supple, 2+ carotid pulse no bruit, No LAD Respiratory: Clear to auscultation bilaterally, Normal air movement Cardiovascular: Regular rate/rhythm, Normal S1 S2 Capillary refill: <2 Seconds Gastrointestinal: Normal bowel sounds, No tenderness Musculoskeletal: No tenderness Integumentary: No rashes Neurological: Normal speech, Normal strength at 5/5 x4 extr, Normal tone, Normal affect - Studies Laboratory Data (last 24 hrs) 10/19/20 21:05: WBC 9.6, Hgb 15.9, Hct 47.8, Plt Count 240 10/19/20 21:05: Sodium 137, Potassium 4.2, BUN 48 H, Creatinine 2.64 H, Glucose 125 H <Julian Ortiz - Last Filed: 10/19/20 22:59> - Studies Laboratory Data (last 24 hrs) 10/19/20 21:05: WBC 9.6, Hgb 15.9, Hct 47.8, Plt Count 240 10/19/20 21:05: Sodium 137, Potassium 4.2, BUN 48 H, Creatinine 2.64 H, Glucose 125 H <Sudhir Stephen - Last Filed: 10/20/20 09:53> Assessment and Plan - Plan Assessment Acute renal failure likely secondary to dehydration, use of lisinopril, aspirin Diabetes mellitus type 2 Hypertension Plan Acute renal failure likely secondary to dehydration, use of lisinopril, aspirin: Patient does appear dry, ordered 2nd normal saline bolus in the emergency department followed by maintenance fluids. Morning labs with uric acid, CPK, PTH, renal ultrasound. Nephrology consult in place. DVT prophylaxis with heparin. Diabetes mellitus type 2: A.c. HS Accu-Cheks scale insulin therapy. A1c with morning labs. Hypertension: Hold lisinopril, continue with carvedilol as appropriate, low pressure on the low side for now. Will continue when appropriate. Discharge Plan: Home Plan to discharge in: 48 Hours - Advance Directives Does patient have a Living Will: No Does patient have a Durable POA for Healthcare: No - Code Status/Comfort Care Code Status Assessed: Yes (Full code) Critical Care: No Time Spent Managing Pts Care (In Minutes): 55 <Julian Ortiz - Last Filed: 10/19/20 22:59> - Plan Case discussed in detail with nurse practitioner. Agree with plan of care. Suspect UTI. Will start Rocephin. Await urine and blood culture results. Continue with IV fluid hydration. Was discussed with nephrology. <Sudhir Stephen - Last Filed: 10/20/20 09:53>
[2020-10-20 00:05] VITALS: BMI 37.3
[2020-10-20] MEDS: NA CHLORIDE 0.9% 1,000 ML IV SCH ×3 (00:12→17:53)
[2020-10-20] MEDS ORDERED: MORPHINE 2 MG/ML SYR IV PRN (00:12)
[2020-10-20] MEDS ORDERED: ACETAMINOPHEN 500 MG TAB PO PRN (00:12)
[2020-10-20] MEDS ORDERED: NA CHLORIDE 0.9% 1,000 ML ONE ×3 (00:31→18:07)
[2020-10-20] MEDS ORDERED: METHYLPREDNISOLONE 125 MG INJ ONE (02:49)
[2020-10-20 03:32] LABS: Urine Appearance CLOUDY; Urine Blood NEGATIVE (NEG); Urine Color YELLOW; Urine Glucose NEGATIVE (NEG); Urine Protein TRACE (NEG); Urine Urobilinogen 0.2 mg/dL (0.2-1.0); Urine pH 5.5 (5.0-7.0)
[2020-10-20 03:35] LABS: Urine Bilirubin NEGATIVE (NEG); Urine Microscopic Reflex ORDER UMIC
[2020-10-20] MEDS ORDERED: ONDANSETRON 4 MG/2 ML VIAL ONE (03:42)
[2020-10-20] MEDS ORDERED: MORPHINE 2 MG/ML SYR ONE (03:42)
[2020-10-20 04:00] LABS: Urine Bacteria 20-50 /HPF (NONE SEEN); Urine Mucus 3+ /HPF (NONE SEEN); Urine RBC <5 /HPF (NONE SEEN)
[2020-10-20] MEDS: ONDANSETRON 4 MG/2 ML VIAL IV PRN (04:19)
[2020-10-20] MEDS ORDERED: GABAPENTIN 300 MG CAP PO PRN (05:34)
[2020-10-20 05:49] LABS: Absolute Lymphocytes (CBC) 0.8 K/uL (0.7-4.9); Basophils % 0.1 % (0-1.3); Hematocrit 40.4 % (39.6-49.0); MPV 9.5 fL (7.6-11.3); RBC Red Blood Cell Count 4.33 M/uL (4.33-5.43)
[2020-10-20] MEDS ORDERED: CEFTRIAXONE 1 GM/NS 50 ML 1 GM/50 ML BAG IV SCH (06:11)
[2020-10-20 06:14] LABS: Magnesium 1.8 mg/dL (1.8-2.4); Potassium 4.5 mmol/L (3.5-5.1); Thyroid Stimulating Hormone 0.403 uIU/mL (0.360-3.740); Uric Acid 9.1 mg/dL (3.5-7.2)
[2020-10-20] MEDS ORDERED: carvediloL 6.25 MG TAB ONE (07:25)
[2020-10-20] MEDS ORDERED: CEFTRIAXONE/SWI 1gm 1 GM/10 ML SYR ONE (07:25)
[2020-10-20] MEDS ORDERED: TAMSULOSIN 0.4 MG SR CAP ONE (07:26)
[2020-10-20] MEDS ORDERED: HEPARIN 5000 UNIT/ML 1 ML VIAL ONE ×2 (07:26→20:24)
[2020-10-20] MEDS: INSULIN -REGULAR HUMAN 50 UNIT/0.5 ML ML SQ SCH ×4 (07:30→20:03)
[2020-10-20] MEDS: CEFTRIAXONE/SWI 1gm 1 GM/10 ML SYR IV SCH (08:14)
[2020-10-20] MEDS: HEPARIN 5000 UNIT/ML 1 ML VIAL SQ SCH ×2 (08:15→20:25)
[2020-10-20] MEDS: TAMSULOSIN 0.4 MG SR CAP PO SCH (08:15)
[2020-10-20] MEDS ORDERED: carvediloL 25 MG TAB PO SCH (09:00)
[2020-10-20 09:20] LABS: Blood Morphology Comment NOT SEEN (NOT SEEN); Platelet Estimate ADEQ
--- NOTE | 2020-10-20 09:58 | P.PN ---
Subjective Date of Service: 10/20/20 Primary Care Provider: Dr. Torres Chief Complaint: Acute kidney injury Subjective: Other (Feeling better with hydration.) Physical Examination - Vital Signs Temperature: 97.8 F Blood Pressure: 119/76 Pulse: 76 Respirations: 17 Pulse Ox (%): 98 - Physical Exam General: Alert, In no apparent distress, Oriented x3, Cooperative HEENT: Atraumatic Neck: Supple Respiratory: Clear to auscultation bilaterally, Normal air movement Cardiovascular: Normal pulses, Regular rate/rhythm Gastrointestinal: Normal bowel sounds, No rebound, No guarding Neurological: Normal speech, Normal strength at 5/5 x4 extr, Normal tone, Normal affect - Studies Laboratory Data (last 24 hrs) 10/19/20 21:05: WBC 9.6, Hgb 15.9, Hct 47.8, Plt Count 240 10/19/20 21:05: Sodium 137, Potassium 4.2, BUN 48 H, Creatinine 2.64 H, Glucose 125 H Medications List Reviewed: Yes Assessment & Plan Discharge Plan: Home Plan to discharge in: 48 Hours Physician Review Additional Text: Assessment Acute renal failure likely secondary to dehydration acute with of lisinopril, aspirin and UTI Diabetes mellitus type 2 Hypertension Plan Acute renal failure likely secondary to dehydration acute with of lisinopril, aspirin and UTI: Continue IV fluids. Pro calcitonin elevated. Suspect UTI. Will start Rocephin. Obtain blood and urine culture. Will monitor closely. Will discuss further with nephrology. Renal function improved. Will provide DVT prophylaxis. Continue to hold aspirin and lisinopril. Anticipate improvement over the next 24-48 hr. Diabetes mellitus type 2: A.c. HS Accu-Cheks scale insulin therapy. Obtain and review home medication. A1c with morning labs. Hypertension: Hold lisinopril and carvedilol at this time. Will monitor blood pressure. Consider carvedilol if blood pressure is elevated. Time Spent Managing Pts Care (In Minutes): 55
[2020-10-20 11:30] LABS: C.diff Antigen/Toxin Ag neg : Tox neg (NEG : NEG)
--- NOTE | 2020-10-20 12:43 | RAD REPORT ---
EXAM DESCRIPTION: US - Renal Ultrasound-Complete - 10/20/2020 12:22 pm CLINICAL HISTORY: stan COMPARISON: Stone Protocol dated 10/19/2020 FINDINGS: The right kidney measures 12.1 x 5.7 x 4.7 cm. The left kidney measures 11.5 x 5.8 x 5.2 cm. Normal cortical thickness is seen. Cortical echogenicity slightly increased. A small 10 mm cyst i s present lateral right kidney and small 11 mm cyst in the upper right kidney. Left kidney contains 1 5 millimeter cyst lateral mid kidney. The 15 millimeter parenchymal calcification lower pole left kid jean claude is difficult to see sonographically. No hydronephrosis of either kidney. No solid mass lesion dl ntified. No bladder wall thickening or mass. No intraluminal stone or mass. IMPRESSION: No hydronephrosis or suspicious renal mass. Bilateral renal cysts are present. Renal cortical echogenicity is increased slightly could reflect mild bilateral medical renal disease. No bladder abnormality.
--- NOTE | 2020-10-20 17:49 | P.CNS ---
Date of Consult: 10/20/20 Reason for Consult: SANTOS Primary Care Provider: Dr. Torres Chief Complaint: Acute kidney injury History of Present Illness: A 54-year-old male with history of hypertension, diabetes mellitus type 2, sleep apnea, kidney stones presents to the emergency department for abdominal pain and diarrhea. Patient reports that he has had right flank pain since this morning with some changes in his stool which he frequently gets when he has a kidney stone, patient was evaluated in the emergency department with CT which did not reveal any acute intra-abdominal findings. Patient reports that he had not made urine all day, bladder scan was performed which revealed only 64 cc of the bladder. Labs reveal creatinine 2.64, last creatinine was in March 2020 which was 0.78. Patient did have episode approximately 5 years ago where h e came in for similar complaints with a creatinine of 7.65, this was ultimately attributed to dehydration. GFR 25, BUN 48 CBC within normal limits. Patient does appear dry. Patient reports taking a daily aspirin 81 mg and is also prescribed lisinopril. Patient denies any recent antibiotic use. ED provider wishes to admit patient for further evaluation and management. 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
--- NOTE | 2020-10-20 18:00 | P.CNS ---
Date of Consult: 10/20/20 Reason for Consult: SANTOS Primary Care Provider: Dr. Torres Chief Complaint: Acute kidney injury History of Present Illness: A 54-year-old male with history of hypertension, diabetes mellitus type 2, sleep apnea, recurrent neophrolithiasis pt presented for abdominal pain and diarrhea. Pt was concerned also for having kidney stone, he noticed decreased UO Labs reveal creatinine 2.64, last creatinine was in March 2020 which was 0.78. denied NSAID intake or contrast exposure Review of Systems: Head and Neck: No red eye. No ear pain. GI: No nausea, no vomiting. , dirrhea resolved : No polyuria, no dysuria, no hematuria. Respiratory: denied shortness of breath. Cardiovascular: No chest pain or palpitation Endocrine: No polydipsia. Skin: No rash. Neuro: denied neuropathy. Musculoskeletal: No back pain . Physical exam general: AAOX3, blind , NAD , Neck; Supple, No elevated JVD hear: RRR, normal S1,2 no murmur or rub Chest: CTAB, no rales or wheezes Abdomen: Soft , Nt Extremities: no edema A/p SANTOS Due to dehydration abd Ct no hydronephrosis will cont IVF HTN cont to hold lisniopril Bp cpntrolled Diarrhea resolved C.diff negative bandemia possibly due to dehydration F/U cultures and cont Abx Hx of nephrolithiasis CT no hydronephrosis DM as per primary team total time spent 45min Allergies naproxen [From Aleve] Allergy (Verified 02/04/16 16:12) Anaphylaxis Home Medications: Furosemide [Lasix*] 40 mg PO DAILY 10/20/20 Gabapentin 300 mg PO TIDP PRN 10/20/20 Metformin ER [Glucophage ER*] 500 mg PO BID 10/20/20 Tamsulosin [Flomax*] 0.4 mg PO DAILY 10/20/20 carvediloL [Coreg] 25 mg PO BID 10/20/20 - Past Medical/Surgical History Diabetic: No -: Diabetes mellitus type 2 -: Hypertension -: Kidney stones -: Sleep apnea -: Nephrostomy placement -: Kidney stent -: 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
[2020-10-20] MEDS ORDERED: MELATONIN 5 MG TABLET PO PRN (20:37)
[2020-10-20] MEDS ORDERED: MELATONIN 5 MG TABLET PO ONE (22:04)
[2020-10-21] MEDS: ONDANSETRON 4 MG/2 ML VIAL IV PRN (03:29)
[2020-10-21] MEDS ORDERED: ONDANSETRON 4 MG/2 ML VIAL ONE (03:43)
[2020-10-21] MEDS ORDERED: LOPERAMIDE HCL 2 MG CAPSULE PO ONE (04:17)
[2020-10-21] MEDS ORDERED: NA CHLORIDE 0.9% 1,000 ML ONE (05:59)
[2020-10-21] MEDS ORDERED: CEFTRIAXONE/SWI 1gm 1 GM/10 ML SYR ONE (05:59)
[2020-10-21] MEDS: CEFTRIAXONE/SWI 1gm 1 GM/10 ML SYR IV SCH (06:06)
[2020-10-21] MEDS: NA CHLORIDE 0.9% 1,000 ML IV SCH (06:06)
[2020-10-21 06:31] LABS: Absolute Lymphocytes (CBC) 1.5 K/uL (0.7-4.9); Basophils % 0.3 % (0-1.3); Hematocrit 39.7 % (39.6-49.0); MPV 9.4 fL (7.6-11.3); RBC Red Blood Cell Count 4.23 M/uL (4.33-5.43)
[2020-10-21 06:43] LABS: BUN Blood Urea Nitrogen 27 mg/dL (7-18); Bicarbonate 24 mmol/L (21-32); Glucose Level 108 mg/dL (74-106); Sodium Level 140 mmol/L (136-145)
[2020-10-21] MEDS: INSULIN -REGULAR HUMAN 50 UNIT/0.5 ML ML SQ SCH ×2 (07:30→11:30)
[2020-10-21] MEDS: HEPARIN 5000 UNIT/ML 1 ML VIAL SQ SCH (07:39)
[2020-10-21] MEDS ORDERED: HEPARIN 5000 UNIT/ML 1 ML VIAL ONE (07:39)
[2020-10-21] MEDS ORDERED: TAMSULOSIN 0.4 MG SR CAP ONE (07:40)
[2020-10-21] MEDS: TAMSULOSIN 0.4 MG SR CAP PO SCH (08:38)
[2020-10-21 08:48] VITALS: O2SAT 97
--- NOTE | 2020-10-21 10:25 | P.DS ---
Admission Date: 10/19/20 Discharge Date: 10/21/20 Primary Care Provider: Dr. Torres Disposition: ROUTINE DISCHARGE Discharge Condition: GOOD Reason for Admission: Acute kidney injury Consultations: Nephrology-Dr. Guerrero Procedures: COVID: Negative C Diff: Negative Renal US: COMPARISON: Stone Protocol dated 10/19/2020 FINDINGS: The right kidney measures 12.1 x 5.7 x 4.7 cm. The left kidney measures 11.5 x 5.8 x 5.2 cm. Normal cortical thickness is seen. Cortical echogenicity slightly increased. A small 10 mm cyst is present lateral right kidney and small 11 mm cyst in the upper right kidney. Left kidney contains 15 millimeter cyst lateral mid kidney. The 15 millimeter parenchymal calcification lower pole left kidney is difficult to see sonographically. No hydronephrosis of either kidney. No solid mass lesion identified. No bladder wall thickening or mass. No intraluminal stone or mass. IMPRESSION: No hydronephrosis or suspicious renal mass. Bilateral renal cysts are present. Renal cortical echogenicity is increased slightly could reflect mild bilateral medical renal disease. No bladder abnormality. CT Scan: FINDINGS: No hydronephrosis is present and no obstructing ureteral calculi. Enlarged 14-15 millimeter calcification within the parenchyma lower pole left kidney again noted. Several calyx calculi are present. No right-sided calculi. There are multiple ill-defined low-density areas in the right kidney similar to 2017. These are probably cysts but are not fully evaluated on noncontrast imaging. Isodense masses and pyelonephritis are not excluded on stone protocol study. No significant adrenal finding. No urinary bladder suspicious finding. Imaged portions of the liver, spleen and pancreas show no suspicious findings on non-contrast imaging. No gallbladder or biliary tree abnormality identified. Large amount of fluid fills and distends the stomach with no gastric wall thickening. Gastric antrum is more limited in detail. No inflammatory stranding around the antrum. No dilated large or small bowel loops. No appendicitis fin dings. No mass or bulky lymphadenopathy. Bilateral fat filled inguinal hernias are present. Fat only umbilical hernia present. No free air or pneumatosis. No free fluid collection. Disc and bone degenerative changes are present. IMPRESSION: No hydronephrosis, obstructing calculus or acute finding identified. Isodense masses and pyelonephritis are not excluded on stone protocol technique. findings are similar to 2017. No active or acute large or small bowel finding. Fluid distends the stomach. The gastric antrum assessment is limited in evaluating mass or wall thickening. There is no surrounding inflammatory stranding. . Medical problem list: Acute renal failure likely secondary to dehydration and medication with UTI Prediabetes Hypertension CT scan showing bilateral renal cysts with bilateral inguinal hernias Obesity, BMI above 30 Brief History of Present Illness: 54-year-old male with history of hypertension, diabetes mellitus type 2, sleep apnea, kidney stones presents to the emergency department for abdominal pain and diarrhea. Patient reports that he has had right flank pain since this morning with some changes in his stool which he frequently gets when he has a kidney stone, patient was evaluated in the emergency department with CT which did not reveal any acute intra-abdominal findings. Patient reports that he had not made urine all day, bladder scan was performed which revealed only 64 cc of the bladder. Labs reveal creatinine 2.64, last creatinine was in March 2020 which was 0.78. Patient did have episode approximately 5 years ago where he came in for similar complaints with a creatinine of 7.65, this was ultimately attributed to dehydration. GFR 25, BUN 48 CBC within normal limits. Patient does appear dry. Patient reports taking a daily aspirin 81 mg and is also prescribed lisinopril. Patient denies any recent antibiotic use. Patient admitted for further evaluation and treatment. Hospital Course: Patient presented with acute renal failure likely from dehydration and medication. Patient also had UTI. Patient was admitted for further evaluation and treatment. Urinalysis initially showed bacteria. So far culture negative. Patient also had bandemia likely related from dehydration. Pro calcitonin slightly elevated. Patient was seen and evaluated by nephrology. Multiple medications have been discontinued. This includes lisinopril, metformin, Flomax and Lasix. At discharge patient afebrile. Patient urinating appropriately. White count now within normal range. Patient with history of UTI in 2018. At discharge patient will continue with Augmentin 500 mg twice daily for 7 days. Patient will also be given probiotic 1 pill 3 times a day. Recommend follow up with PCP tomorrow. PCP should follow up on urine and blood culture results. As mentioned above lisinopril, metformin, Flomax, and lisinopril have been discontinued. Recommend to recheck lab-BMP in 1 week. Recommend follow up with nephrology in 1-2 weeks to follow up this hospitalization. CT scan also revealed incidental bilateral inguinal hernia and bilateral renal cysts. This appears benign. As mentioned above recommend follow up with nephrology in 1-2 weeks to follow up this hospitalization. Recommend recheck BMP in 1 week. As recommended, metformin, lisinopril, Flomax, and Lasix have been discontinued. Patient with Prediabetes. Patient had been taking metformin for prevention of diabetes. Hemoglobin A1c 5.6. No need for metformin especially in light of acute renal failure. Recommend recheck hemoglobin A1c in 3-6 months to monitors progress. Patient with obesity. Lifestyle modification education provided along with diabetic diet. Patient with hypertension. As mentioned above lisinopril has been discontinued. Patient had been taking carvedilol 25 mg 1 pill twice daily. Blood pressure stable off medications. At discharge recommend to monitor blood pressure daily. Recommend to maintain blood pressure less than 130/80. If blood pressure remains above 140/90 consistently then carvedilol 3.125 mg 1 pill twice daily can be started. Prescription for carvedilol 3.125 mg 1 pill twice daily will be provided. Recommend to keep a diary of his blood pressures. Patient will follow up with his PCP tomorrow to further monitor and address. Patient had been taking Lasix and Flomax for lower extremity edema. Patient likely with venous insufficiency. Will recommend to discontinue both medications at discharge in light of acute renal failure. Patient reports no history of urinary problems. If the patient has poor stream or urinary complaints in the future then will recommend for the patient to see urology for further workup. Vital Signs/Physical Exam: Temp Pulse Resp BP Pulse Ox 97.9 F 74 18 132/84 97 10/21/20 08:00 10/21/20 08:00 10/21/20 08:00 10/21/20 08:00 10/21/20 08:00 General: Alert, In no apparent distress, Oriented x3, Cooperative HEENT: Atraumatic Neck: Supple Respiratory: Clear to auscultation bilaterally, Normal air movement Cardiovascular: Normal pulses, Regular rate/rhythm Gastrointestinal: Normal bowel sounds, Soft and benign, Non-distended, No tenderness, No masses, No rebound, No guarding Integumentary: No tenderness/swelling, No erythema, No warmth, No cyanosis Neurological: Normal speech, Normal strength at 5/5 x4 extr, Normal tone, Normal affect Laboratory Data at Discharge: WBC 7.4 K/uL (4.3-10.9) 10/21/20 06:06 Hgb 12.8 g/dL (13.6-17.9) L 10/21/20 06:06 Hct 39.7 % (39.6-49.0) 10/21/20 06:06 Plt Count 183 K/uL (152-406) 10/21/20 06:06 Sodium 140 mmol/L (136-145) 10/21/20 06:06 Potassium 4.0 mmol/L (3.5-5.1) 10/21/20 06:06 BUN 27 mg/dL (7-18) H 10/21/20 06:06 Creatinine 0.88 mg/dL (0.55-1.3) 10/21/20 06:06 Glucose 108 mg/dL (74-106) H 10/21/20 06:06 Uric Acid 9.1 mg/dL (3.5-7.2) H 10/20/20 05:15 Magnesium 2.0 mg/dL (1.8-2.4) 10/21/20 06:06 Triglycerides 105 mg/dL (<150) 10/20/20 05:15 Cholesterol 191 mg/dL (<200) 10/20/20 05:15 HDL Cholesterol 32 mg/dL (40-60) L 10/20/20 05:15 Cholesterol/HDL Ratio 5.97 10/20/20 05:15 Home Medications: Gabapentin 300 mg PO TIDP PRN 10/20/20 Tamsulosin [Flomax*] 0.4 mg PO DAILY 10/20/20 Amox/Clavulanate [Augmentin 500-125 mg Tab] 500 mg PO BID #14 tab 10/21/20 Carvedilol [Coreg] 3.125 mg PO BID #60 tablet 10/21/20 Lactobacillus Acidophilus [Acidophilus Lactobacilli] 1 each PO TID #21 capsule 10/21/20 New Medications: Lactobacillus Acidophilus [Acidophilus Lactobacilli] 1 each PO TID #21 capsule Amox/Clavulanate [Augmentin 500-125 mg Tab] 500 mg PO BID #14 tab Carvedilol [Coreg] 3.125 mg PO BID #60 tablet Patient Discharge Instructions: Follow up with PCP tomorrow. Patient presented with acute renal failure likely from dehydration and medication. Patient also had UTI. Patient was admitted for further evaluation and treatment. Urinalysis initially showed bacteria. So far culture negative. Patient also had bandemia likely related from dehydration. Pro calcitonin slightly elevated. Patient was seen and evaluated by nephrology. Multiple medications have been discontinued. This includes lisinopril, metformin, Flomax and Lasix. At discharge patient afebrile. Patient urinating appropriately. White count now within normal range. Patient with history of UTI in 2018. At discharge patient will continue with Augmentin 500 mg twice daily for 7 days. Patient will also be given probiotic 1 pill 3 times a day. Recommend follow up with PCP tomorrow. PCP should follow up on urine and blood culture results. As mentioned above lisinopril, metformin, Flomax, and lisinopril have been discontinued. Recommend to recheck lab-BMP in 1 week. Recommend follow up with nephrology in 1-2 weeks to follow up this hospitalization. CT scan also revealed incidental bilateral inguinal hernia and bilateral renal cysts. This appears benign. As mentioned above recommend follow up with nephrology in 1-2 weeks to follow up this hospitalization. Recommend recheck BMP in 1 week. As recommended, metformin, lisinopril, Flomax, and Lasix have been discontinued. Patient with Prediabetes. Patient had been taking metformin for prevention of diabetes. Hemoglobin A1c 5.6. No need for metformin especially in light of acute renal failure. Recommend recheck hemoglobin A1c in 3-6 months to monitors progress. Patient with obesity. Lifestyle modification education provided along with diabetic diet. Patient with hypertension. As mentioned above lisinopril has been discontinued. Patient had been taking carvedilol 25 mg 1 pill twice daily. Blood pressure stable off medications. At discharge recommend to monitor blood pressure daily. Recommend to maintain blood pressure less than 130/80. If blood pressure remains above 140/90 consistently then carvedilol 3.125 mg 1 pill twice daily can be started. Prescription for carvedilol 3.125 mg 1 pill twice daily will be provided. Recommend to keep a diary of his blood pressures. Patient will follow up with his PCP tomorrow to further monitor and address. Patient had been taking Lasix and Flomax for lower extremity edema. Patient likely with venous insufficiency. Will recommend to discontinue both medications at discharge in light of acute renal failure. Patient reports no history of urinary problems. If the patient has poor stream or urinary complaints in the future then will recommend for the patient to see urology for further workup. Diet: ADA Activity: Ad mariama Followup: Romero Torres DO [Primary Care Provider] - Time spent managing pt's care (in minutes): 55
[2020-10-21 11:27] VITALS: BP 141/88; TEMP 98.2
--- NOTE | 2020-10-21 13:17 | P.PN ---
Subjective Date of Service: 10/21/20 Primary Care Provider: Dr. Torres Chief Complaint: Acute kidney injury A 54-year-old male with history of hypertension, diabetes mellitus type 2, sleep apnea, recurrent neophrolithiasis pt presented for abdominal pain and diarrhea. Pt was concerned also for having kidney stone, he noticed decreased UO Labs reveal creatinine 2.64, last creatinine was in March 2020 which was 0.78. denied NSAID intake or contrast exposure today no overnight events Cr down 0.8 can be discharged from nephrology point of view, use lasix prn cont to hold lasix Review of Systems: Head and Neck: No red eye. No ear pain. GI: No nausea, no vomiting. , dirrhea resolved : No polyuria, no dysuria, no hematuria. Respiratory: denied shortness of breath. Cardiovascular: No chest pain or palpitation Endocrine: No polydipsia. Skin: No rash. Neuro: denied neuropathy. Musculoskeletal: No back pain . Physical exam general: AAOX3, blind , NAD , Neck; Supple, No elevated JVD hear: RRR, normal S1,2 no murmur or rub Chest: CTAB, no rales or wheezes Abdomen: Soft , Nt Extremities: no edema A/p SANTOS resolved Due to dehydration abd Ct no hydronephrosis HTN cont to hold lisniopril Bp controlled Diarrhea resolved C.diff negative bandemia resolved possibly due to dehydration F/U cultures and cont Abx Hx of nephrolithiasis CT no hydronephrosis DM cont to hold metfromin as per primary team total time spent 45min Physical Examination - Vital Signs Temperature: 98.2 F Blood Pressure: 141/88 Pulse: 74 Respirations: 18 Pulse Ox (%): 95 - Studies Medications List Reviewed: Yes
== END 2020-10-21 13:00 | disposition home or self-care (01) | DRG 683 ==
LOC: ER 16:55 → ERHOLD 22:52
PROVIDERS: ADMIT Family Medicine; ATTEND Family Medicine
DX: N17.9 Acute kidney failure, unspecified (principal); N39.0 Urinary tract infection, site not specified; I10 Essential (primary) hypertension; E86.0 Dehydration; R73.03 Prediabetes; K40.20 Bilateral inguinal hernia, without obstruction or gangrene, not specified as recurrent; E66.9 Obesity, unspecified; N28.1 Cyst of kidney, acquired; T46.4X5A Adverse effect of angiotensin-converting-enzyme inhibitors, initial encounter; T39.015A Adverse effect of aspirin, initial encounter; Z88.8 Allergy status to other drugs, medicaments and biological substances; Z79.84 Long term (current) use of oral hypoglycemic drugs; Z79.899 Other long term (current) drug therapy; Z68.30 Body mass index [BMI] 30.0-30.9, adult; Z20.822 Contact with and (suspected) exposure to COVID-19
CPT/HCPCS: 36415; 74176; 76377; 76770; 80048; 80061; 81003; 81015; 82550; 82947; 83036; 83735; 83970; 84145; 84439; 84443; 84550; 85025; 87040; 87045; 87046; 87086; 87088; 87324; 87449; 89055; 96361; 96374; 96375; 99285; J0696; J1200; J1644; J2270; J2405; J2930; J3010; J7030; U0003

== ENCOUNTER 2022-06-24 19:41 | Emergency (ER) | payer OTHER ==
--- OUTSIDE RECORDS SUMMARY | 2022-06-24 19:44 | XMS REPORT | Continuity of Care Document ---
:1965 Author Organization [facility] t Address [address] [place] [address] Care Team Providers Name Role Phone MATILDE AREVALO Primary Care Physician Unavailable Romero Torres Attending Clinician Unavailable Ladarius Shell Attending Clinician Unavailable Matilde Arevalo Attending Clinician Unavailable Nurse, Adc Pob Immunization Attending Clinician Unavailable Godfrey Cardenas DO Attending Clinician GODFREY CARDENAS Attending Clinician Unavailable MICAH BOSWELL Attending Clinician Unavailable MICAH BOSWELL Admitting Clinician Unavailable Problems Condition Condition Condition Status Onset Resolution Last Treating Co mments Source Name Details Category Date Date Treatment Clinician Date Left Left Disease Active 2017-10 [facility] ureteral ureteral 1-05 [facility]y of stone stone 00:00: [address] Complicate Complicate Disease Active [facility]TI d UTI 7[facility]06 [facility] ([facility]inary (urinary 00:00: Medica l tract tract 00 Center infection) infection) Obstructio Obstructio Disease Active [facility] of left n of left 04-16 [facility] ureteropel ureteropel 00:00: Me dical maribel maribel 00 Center junction junction due to due to stone stone Obstructiv Obstructiv Disease Active [facility] e uropathy e uropathy 03-22 Carmen kes 00:00: Medical Center SANTOS (acute SANTOS (acute Disease Active [facility] kidney kidney 02-05 [facility] injury) injury) 00:[facility]: [facility] Renal Renal Disease Active [facility] stone stone 02-05 [facility] 00:[facility]: Medical [place] Hydronephr Hydronephr Disease Active [facility] osis osis 02-05 [facility] 00:[facility]: [facility] [place] HTN HTN Disease Active [facility] (hypertens (hypertens 02-05 Carmen kes ion) ion) 00:00: Medical 00 [place] Septic Septic Disease Active [facility] shock shock 02-04 [facility] 00:00: Medical 00 [place] Allergies, Adverse Reactions, Alerts Allergy Allergy Status Severity Reaction(s) Onset Inactive Treating Comm ents Source Name Type Date Date Clinician Naproxen Propensi Active Swelling 2017-10 Univ ers Sodium ty to 10-15 ity of adverse 00:00: [place] reaction 00 Medical Branch NAPROXEN DRUG Active Swelling 2017-10 Univer s SODIUM INGREDI 10-15 ity of 00:00: [place] 00 Medical Branch Naproxen Drug Active Swelling Lips [facility] Sodium Allergy 02-04 [facility] 00:00: Medical 00 [place] Aleve Adverse Active Lip swelling Com mon Reaction [facility] Social History Social Habit Start Date Stop Date Quantity Comments Source History SDOH [facility] Alcohol Frequency Medical Center History SDOH [facility] Alcohol Std Medical Cente r Drinks History SDOH [facility] Alcohol Binge Medical [facility] ter Alcohol intake 2017-04-22 2017-04-22 Current drinker of [facility] 00:[facility]00 00:00:00 alcohol (finding) [facility] Alcohol Comment 2017-04-17 2017-04-[address] [facility] 00:00:00 00:00:00 [facility] Tobacco use and 2016-03-23 2016-03-23 Never used [facility] [place] exposure 00:00:00 00:00:00 Medical Center Sex [birth year] At [birth year] [facility] [place] 00:00:00 00:00:00 Medical Center Smoking Status Start Date Stop Date Source Unknown if ever smoked [facility] Never sm[facility] ical Center Medications Ordered Filled Start Stop Current Ordering Indication Dosage Frequency Signature Comments Components Source Medication Medication Date Date Medication? Clinician (SIG) Name Name tamsulosin 2017-10 Yes Take by Univ ers (FLOMAX) 1-06 mouth ity of 0.4 mg 24 11:13: daily. [place] hr capsule 49 Medical Branch HYDROcodone 2017-10 Yes 1{tbl} Take 1 Un sunita -acetaminop 1-05 tablet by ity of hen 5-325 00:00: mouth [place] mg tablet 00 every 6 Medical (six) Branch hours as needed for Pain (scale 1-3) or Pain (scale 4-6). tamsulosin 2017-10 Yes .4mg Take 1 Unive rs 0.4 mg 24 1-05 capsule by ity of hr capsule 00:00: mouth [place] 00 daily. Medical Branch levoFLOXaci 2017-10 Yes 500mg Take 1 Uni vers n 500 mg 1-05 tablet by ity of tablet 00:00: mouth [place] 00 every 24 Medical (twenty-fo Branch ur) hours. carvedilol Yes hypertensio 25mg Take [address] (COREG) 25 7-11 n by mouth 2 Tello es MG tablet 19:29: (two) Medical 58 times Center daily with breakfast and dinner. lisinopril Yes hypertensio 20mg QD Take [address] (PRINIVIL,Z 7-11 n by mouth Luke s ESTRIL) 20 19:29: daily. Medic al MG tablet 58 Center furosemide Yes 20mg QD Take [address] (LASIX) 20 7-11 by mouth [facility] MG tablet 19:29: daily. Medica l 58 Center doxycycline Yes 100mg Q.5D Take [address] (VIBRAMYCIN 7-11 mg by [facility] ) 100 MG 19:29: mouth 2 Medica l capsule 58 (two) Center times daily. tamsulosin Yes .4mg QD Take 1 [facility] t (FLOMAX) 7-11 capsule [facility] 0.4 mg Cp24 00:00: (0.4 mg Med ical 24 hr 00 total) by Center capsule mouth nightly. carvedilol Yes 12.5mg Q.5D Take 12.5 Methodi (COREG) 6-[address] 12.5 MG 20:54: mouth 2 Hospita tablet 02 (two) l times a day with meals. furosemide Yes 20mg Q.5D Take 20 mg M ethodi (LASIX) 20 6-[address] MG tablet 20:54: (two) Hospita 02 times a l day. lisinopril Yes 10mg QD Take 10 mg M ethodi (PRINIVIL,Z 6-[address] ESTRIL) 10 20:54: daily. Hospi ta MG tablet 02 l meloxicam Yes 15mg QD Take 15 mg Me thodi (MOBIC) 15 6-[address] MG tablet 20:54: daily. Hospit a 02 l Lisinopril Lisinopril Yes Matilde 1 tablet Common [facility] Coreg Coreg Yes Matilde 1 tablet Common [facility] Immunizations Ordered Filled Immunization Date Status Comments Sour e Immunization Name Name SARS-COV-2 COVID-19 2021-10-18 Completed Unive rsity of MODERNA BOOSTER 00:00:00 [facility] ical VACCINE Branch SARS-COV-2 COVID-19 2020-12-15 Completed Unive rsity of MODERNA VACCINE 00:00:00 [place] Med ical Branch SARS-COV-2 COVID-19 2020-11-17 Completed Unive rsity of MODERNA VACCINE 00:00:00 [facility] ical Branch Procedures Procedure Date / Time Performed Performing Clinician [facility] e SARS-COV-2 COVID-19 2021-10-18 22:10:15 Doctor Unassigned, No Un [facility] [place] VACCINE Name Medical Branch BOOSTER,0.25ML,IM (MODERNA) Plan of Care Planned Activity Planned Date Details Comments Source Future Scheduled 2022-06-12 COVID-19 VACCINE (#1) [facility] Test 07:25:43 [code = COVID-19 VACCINE (#1)] Future Scheduled 2022-06-12 COLONOSCOPY SCREENING [facility] Test 07:25:43 [code = COLONOSCOPY SCREENING] Future Scheduled 2022-06-12 SHINGLES VACCINES (1 Met [facility] Test 07:25:43 of 2) [code = SHINGLES VACCINES (1 of 2)] Future Scheduled 2022-06-[address] [facility] Test 07:25:43 [code = INFLUENZA VACCINE] Future Scheduled 2022-06-12 HEPATITIS B VACCINES Met [facility] Test 07:25:43 (1 of 3 - 3-dose series) [code = HEPATITIS B VACCINES (1 of 3 - 3-dose series)] Encounters Start End Encounter Admission Attending Care Care Encounter Source Date/Time Date/Time Type Type Clinicians Facility Department ID 2022-05-08 Outpatient Torres, [facility] [id number] Common 16:40:00 Romero [facility] 2021-11-15 [facility] [id number] Common 11:33:01 Romero [facility] 2021-11-06 [facility] [id number] Common 15:13:00 Romero [facility] 2021-11-06 Out[facility], [facility] [id number] Common 14:07:49 Romero 72585 [facility] 2021-11-06 Out[facility], [facility] [id number] Common 13:36:44 Romero 07875 [facility] 2021-11-06 Out[facility], [facility] [id number] Common 13:36:17 Romero 11414 [facility] 2021-11-06 Outpatient [facility], [facility] [id number] Common 12:39:10 Romero 28514 [facility] 2021-11-06 Out[facility], [facility] [id number] Common 12:38:07 Romero 64167 [facility] 2021-11-06 Out[facility], [facility] [id number] Common 12:36:12 Romero 76670 [facility] 2021-11-06 Outpatient Torres, STLMLC STL[facility] [id number] Common 12:26:31 Romero 42769 [facility] 2021-11-06 Outpatient Torrse, STLMLC STLMLC [id number] Common 12:25:33 Romero 57024 [facility] 2021-11-06 Outpatient Torres, STLMLC STLMLC [id number] Common 12:19:33 Romero 93588 [facility] 2021-11-06 Outpatient Torres, STLMLC STLMLC [id number] Common 12:14:55 Romero 20873 [facility] 2021-11-06 Outpatient Suleman, Kin STLMLC STLMLC [id number] Common 12:14:45 [id number] [facility] 2021-11-06 Outpatient Suleman, Kin STLMLC STLMLC [id number] Common 12:11:08 95918 [facility] 2021-11-06 Outpatient Suleman, Kin STLMLC STLMLC [id number] Common 12:10:25 90336 [facility] 2021-11-06 Outpatient Suleman, Kin STLMLC STLMLC [id number] Common 12:04:50 07759 [facility] 2021-11-06 Outpatient Suleman, Kin STLMLC STLMLC [id number] Common 12:03:29 09573 [facility] 2021-11-06 Outpatient Millender, STLMLC STLMLC [id number] Common 11:27:55 Matilde 02140 [facility] 2021-11-06 Outpatient Millender, STLMLC STLMLC [id number] Common 11:03:47 Matilde 25478 [facility] 2021-11-06 Outpatient Millender, STLMLC STLMLC [id number] Common 11:03:24 Matilde 97409 [facility] 2022-05-08 2022-05-08 ambulatory STLMLC STLMLC [id number] Common 00:00:00 00:00:00 [facility] 2022-05-08 2022-05-08 ambulatory STLMLC STLMLC [id number] Common 00:00:00 00:00:00 [facility] 2022-02-07 2022-02-07 ambulatory STLMLC STLMLC [id number] Common 00:00:00 00:00:00 [facility] 2021-12-24 2021-12-24 ambulatory STLMLC STLMLC [id number] Common 00:00:00 00:00:00 [facility] 2021-11-21 2021-11-21 ambulatory STLMLC STLMLC [id number] Common 00:00:00 00:00:00 [facility] 2021-11-07 2021-11-07 ambulatory STLMLC STLMLC [id number] Common 00:00:00 00:00:00 [facility] 2021-10-18 2021-10-18 Imm/Inj Nurse, Adc Pob Immunization [facility] [[email or web address]] [id number] Univers 16:00:00 16:00:26 Visit Godfrey Cardenas [id number] margarita [facility] [id number] Martin DURAN [id number] [address] 2021-10-18 2021-10-18 Outpatient Chris CARDENAS [facility] [id number] Univers 16:0000 16:00:[address] [facility] 2021-07-16 2021-07-16 Outpatient STLMLC STL[facility] [id number] Common 00:00:00 00:00:00 [facility] 2021-05-21 2021-05-21 Outpatient STLMLC STLMLC [id number] Common 00:00:00 00:00:00 [facility] 2021-02-13 2021-02-13 Outpatient STLMLC STL[facility]C [id number] Common 00:00:00 00:00:00 [facility] 2021-01-21 2021-01-21 Outpatient STLMLC STL[facility]C [id number] Common 00:00:00 00:00:00 [facility] 2020-12-20 2020-12-20 Outpatient STLMLC STLMLC [id number] Common 00:00:00 00:00:00 [facility] 2020-12-15 2020-12-15 Outpatient [facility] [id number] Univers 14:10:00 14:10:00 [facility] 2020-11-17 2020-11-17 Outpatient [facility] [id number] Univers 14:10:00 14:10:00 [facility] 2020-11-08 2020-11-08 Outpatient STLMLC STLMLC [id number] Common 00:00:00 00:00:00 [facility] 2020-11-08 2020-11-08 Outpatient STLMLC STLMLC [id number] Common 00:00:00 00:00:00 [facility] 2020-10-22 2020-10-22 Outpatient STLMLC STLMLC [id number] Common 00:00:00 00:00:00 [facility] 2020-09-29 2020-09-29 Outpatient STLMLC STLMLC [id number] Common 00:00:00 00:00:00 [facility] 2020-09-17 2020-09-17 Outpatient STLMLC STLMLC [id number] Common 00:00:00 00:00:00 [facility] 2020-08-20 2020-08-20 Outpatient STLMLC STLMLC [id number] Common 00:00:00 00:00:00 [facility] 2020-02-17 2020-02-17 [facility] [id number] Common 10:33:00 10:33:00 [facility] it [facility] 2019-12-29 2019-12-29 [facility] [id number] Common 14:20:00 14:20:00 [facility] it [facility] 2019-11-09 2019-11-09 [facility] [id number] Common 08:45:00 08:45:[address] [facility] 2019-09-22 2019-09-22 [facility] [id number] Common 08:00:00 08:00:[address] [facility] 2019-09-14 2019-09-14 [facility] [id number] Common 15:33:00 15:33:[address] [facility] 2019-04-04 2019-04-04 [facility] [id number] Common 09:00:00 09:00:[address] [facility] 2019-03-25 2019-03-25 [facility] [id number] Common 14:39:00 14:39:[address] [facility] 2019-03-23 2019-03-23 [facility] [id number] Common 15:00:00 15:00:[address] [facility] 2018-12-11 2018-12-11 [facility] [id number] Common 11:48:00 11:48:[address] [facility] 2018-12-08 2018-12-08 [facility] [id number] Common 14:45:00 14:45:[address] [facility] 2018-11-30 2018-11-30 [facility] [id number] Common 16:46:00 16:46:[address] [facility] 2018-09-23 2018-09-23 [facility] [id number] Common 11:45:00 11:45:[address] [facility] 2018-04-26 2018-04-26 [facility] [id number] Common 20:50:00 20:50:[address] [facility] 2018-04-21 2018-04-21 Out[facility] [id number] Common 14:30:00 14:30:00 t [facility] [address] [facility] 2018-03-26 2018-03-26 Out[facility] [id number] Common 14:30:00 14:30:00 t [facility] [address] [facility] 2018-01-19 2018-01-19 Out[facility] [id number] Common 13:30:00 13:30:00 t [facility] [address] [facility] Results Test Description Test Time Test Comments Results Result Comments Source BLOOD CULTURE 2017-04-22 00:00:00 Test Item Value Reference Range Interpretation Comme nts CULTURE (BEAKER) (test code = 1095) No growth in 5 days BLOOD [id number] 00:00:00 Test Item Value Reference Range Interpretation Comments CULTURE (BEAKER) (test No growth in 5 days code = 1095) HEMOGLOBIN [id number] 21:56:00 Test Item Value Reference Range Interpretation Comments HEMOGLOBIN A1C (BEAKER) (test code = 6.7 % 4.3-6.1 H 368) T4, [id number] 12:30:00 Test Item Value Reference Range Interpretation Comments FREE T4 (BEAKER) (test code = 655) 0.74 ng/dL 0.70-1.48 TSH/FREE T4 IF [id number] 05:46:00 Test Item Value Reference Range Interpretation Comments THYROID STIMULATING HORMONE 5.17 uIU/mL 0.35-4.94 H (BEAKER) (test code = 772) [id number] 05:37:00 Test Item Value Reference Range Interpretation Comments FERRITIN (BEAKER) (test code = 361) 79 ng/mL 5-275 Effective 08/29/2014: Reference Range ChangeNew: Male 5-275 Previous: Male 22- 322 Female 5-275 Female [id number] NATRIURETIC FACTOR (BNP)2017-04-17 05:22:00 Test Item Value [...] % 20-55 (test code = 2590) LIPID [id number] 05:12:00 Test Item Value Reference Range Interpretation Comments TRIGLYCERIDES (BEAKER) (test code = 259 mg/dL 540) CHOLESTEROL (BEAKER) (test code = 214 mg/dL 631) HDL CHOLESTEROL (BEAKER) (test code 27 mg/dL = 976) LDL CHOLESTEROL CALCULATED (BEAKER) 135 mg/dL (test code = 633) Triglyceride Reference Range: Low Risk <150 Borderline 150-199 High Risk 200- 499 Very High Risk >=500Cholesterol Reference Range: Low Risk <200 Borderline 200-239 High Risk >240HDL Cholesterol Reference Range: Low Risk >=60 High Risk <40LDL Cholesterol Reference Range: Optimal <100 Near Optimal 100-129 Borderline 130-159 High 160-189 Very High >=190URINALYSIS W/ REFLEX URINE [id number] 00:32:00 Test Item Value Reference Range Interpretation [...] 57 /HPF MUCUS (BEAKER) (test code = 5104) Rare SOURCE(BEAKER) (test code = 2795) [id number] 22:20:00 Test Item Value Reference Range Interpretation Comments PROTIME (BEAKER) (test code = 13.5 seconds 11.7-14.7 759) INR (BEAKER) (test code = 370) 1.0 <=5.9 PARTIAL THROMBOPLASTIN TIME 28.5 seconds 22.5-36.0 (BEAKER) (test code = 760) RECOMMENDED COUMADIN/WARFARIN INR THERAPY RANGESSTANDARD DOSE: 2.0 - 3.0 Includes: PROPHYLAXIS for venous thrombosis, systemic embolization; TREATMENT for venous thrombosis and/or pulmonary embolus.HIGH RISK: Target INR is 2.5-3.5 for patients with mechanical heart valves.[id number] 22:18:00 Test Item Value Reference Range Interpretation Comments MAGNESIUM (BEAKER) (test code = 1.7 mg/dL 1.6-2.6 627) BASIC METABOLIC [id number] 22:18:00 Test Item Value Reference Range Interpretation [...] APPLICABLE FOR DIALYSIS PATIEN TS. HEPATIC FUNCTION [id number] 22:18:00 Test Item Value Reference Range Interpretation [...] 6-55 347) CBC W/PLT COUNT & AUTO [id number] 22:12:00 Test Item Value Reference Range Interpretation [...]
[2022-06-24 21:42] LABS: Hematocrit 37.7 % (39.6-49.0); Lymphocytes % 8.5 % (15.3-44.8); MCV 90.2 fL (80-100); MPV 8.3 fL (7.6-11.3); RBC Red Blood Cell Count 4.18 M/uL (4.33-5.43)
[2022-06-24] MEDS ORDERED: ONDANSETRON 4 MG/2 ML VIAL ONE (21:42)
[2022-06-24] MEDS ORDERED: MORPHINE 4 MG/ML SYR ONE (21:42)
[2022-06-24] MEDS ORDERED: NA CHLORIDE 0.9% 500 ML ONE (21:43)
[2022-06-24 22:00] LABS: Urine Blood 3+ (Negative); Urine Glucose Negative (Negative); Urine Protein 1+ (Negative); Urine Specific Gravity 1.025 (1.005-1.030); Urine pH 5.5 (5.0-7.0)
[2022-06-24 22:00] LABS: Albumin 3.9 g/dL (3.4-5.0); Bilirubin Total 0.9 mg/dL (0.2-1.0); Protein, Total 7.7 g/dL (6.4-8.2)
--- NOTE | 2022-06-24 22:07 | RAD REPORT ---
EXAM DESCRIPTION: CT - Stone Protocol - 06/24/2022 9:58 pm CLINICAL HISTORY: Flank pain. Flank pain, kidney stone suspected COMPARISON: Stone Protocol dated 10/19/2020 TECHNIQUE: Axial images were obtained without oral or IV contrast. Lack of contrast limits solid org an and vascular assessment. The [id number] spans the entirety of the system partially obscuring uppermost abdomen and lung bases. Coronal reformatted images were obtained and reviewed. All CT scans are performed using dose optimization technique as appropriate and may include automated exposure control or mA/KV adjustment according to patient size. FINDINGS: Mild linear atelectasis is present in both posterior lung bases. Imaged portions of the liver and spleen show no suspicious findings on non-contrast imaging. The panc reas and adrenal glands are normal. No pathologic lymphadenopathy in the abdomen or pelvis. 5 mm stone is present left UVJ resulting in moderate left hydronephrosis and hydroureter. Several add itional inferior left renal calculi present, largest measuring 7 mm. No right-sided stone or hydronep hrosis. No bowel obstruction, free air, free fluid or abscess. Normal appendix noted.Small fat containing umb ilical hernia. Moderate bilateral fat containing inguinal hernias. No significant bony abnormality. IMPRESSION: 5 mm stone is present at the left UVJ resulting in moderate left hydronephrosis and hydr oureter. Additional left nephrolithiasis.
[2022-06-24 22:35] LABS: Urine Bacteria 20-50 /HPF (<20); Urine Mucus Slight /HPF (None Seen); Urine RBC >50 /HPF (None Seen)
[2022-06-25] MEDS ORDERED: TAMSULOSIN 0.4 MG SR CAP ONE (00:05)
[2022-06-25] MEDS ORDERED: MAGNESIUM SULFATE 1 gm IVPB 1 GM/100 ML BAG IV ONE (00:06)
[2022-06-25] MEDS ORDERED: CEFTRIAXONE 2000 MG/VIAL ONE (00:06)
[2022-06-25] MEDS ORDERED: NA CHLORIDE 0.9% 100 ML ONE (00:06)
[2022-06-25] MEDS ORDERED: HYDROMORPHONE HCL 1 MG/ML INJ ONE (00:41)
--- NOTE | 2022-06-25 01:31 | ER ---
Nurse's Notes [facility] Name: Ney Marquez Age: 56 yrs Sex: Male : 1965 Arrival Date: 06/24/2022 Time: 19:53 Bed 7 Private MD: Diagnosis: Calculus of kidney with calculus of ureter-left Presentation: 06/24 19:53 Chief complaint: Patient states: Pt complaints of left lower back pain that resembles jh5 his past kidney stones. Coronavirus screen: Vaccine status: Patient reports being unvaccinated. Client denies travel out of the [place] in the last 14 days. Ebola Screen: Patient negative for fever greater than or equal to 101.5 degrees Fahrenheit, and additional compatible Ebola Virus Disease symptoms Patient denies exposure to infectious person. Patient denies travel to an Ebola-affected area in the 21 days before illness onset. Initial Sepsis Screen: Does the patient meet any 2 criteria? No. Patient's initial sepsis screen is negative. Does the patient have a suspected source of infection? No. Patient's initial sepsis screen is negative. Risk Assessment: Do you want to hurt yourself or someone else? Patient reports no desire to harm self or others. Onset of symptoms was June 2022. 19:53 Method Of Arrival: EMS: [facility] 19:53 Acuity: ANUJA 3 jh5 Triage Assessment: 19:55 General: Appears in no apparent distress. uncomfortable, obese, unkempt, Behavior is [facility] calm, cooperative, appropriate for age. Pain: Complains of pain in back. Musculoskeletal: Circulation, motion, and sensation intact. Capillary refill < 3 seconds, Range of motion: intact in all extremities. Historical: - Allergies: 19:55 Aleve; jh5 - PMHx: 19:55 Atrial Fib; Hypertension; Kidney stones; swelling of legs; jh5 - Immunization history:: Adult Immunizations up to date. - Social history:: Smoking status: Patient reports the use of cigarette tobacco products. Screenin:00 Abuse screen: Denies threats or abuse. Denies injuries from another. Nutritional eh3 screening: No deficits noted. Tuberculosis screening: No symptoms or risk factors identified. Fall Risk None identified. Assessment: 21:00 General: Appears in no apparent distress. uncomfortable, Behavior is calm, cooperative, eh3 appropriate for age. Pain: Complains of pain in left upper quadrant and left lower quadrant Pain radiates to left low back Pain currently is 10 out of 10 on a pain scale. Quality of pain is described as sharp, Pain began 1130 this morning Is continuous. Neuro: Level of Consciousness is awake, alert, obeys commands, Oriented to person, place, time, situation. Cardiovascular: Capillary refill < 3 seconds Patient's skin is warm and dry. Respiratory: Airway is patent Respiratory effort is even, unlabored. GI: Abdomen is round non-distended, Reports nausea. : Urine is blood tinged. 22:00 Reassessment: Patient and/or family updated on plan of care and expected duration. Pain eh3 level reassessed. Patient is alert, oriented x 3, equal unlabored respirations, skin warm/dry/pink. 23:00 Reassessment: Patient and/or family updated on plan of care and expected duration. Pain eh3 level reassessed. Patient is alert, oriented x 3, equal unlabored respirations, skin warm/dry/pink. 06/25 00:39 Reassessment: Patient and/or family updated on plan of care and expected duration. Pain as6 level reassessed. Patient is alert, oriented x 3, equal unlabored respirations, skin warm/dry/pink. C/o back pain 07/21, medicated as ordered. Vital Signs: 06/24 19:53 BP 119 / 78; Pulse 67; Resp 18; Temp 98.6; Pulse Ox 96% ; Weight 102.06 kg; Height 5 jh5 ft. 9 in. (175.26 cm); Pain 10; 22:00 BP 128 / 75; Pulse 79; Resp 18; Pulse Ox 95% on R/A; eh3 22:30 BP 130 / 87; Pulse 66; Resp 18; Pulse Ox 93% on R/A; eh3 23:00 BP 123 / 82; Pulse 78; Resp 18; Pulse Ox 93% on R/A; eh3 06/25 00:39 BP 111 / 73; Pulse 85; Resp 18; Pulse Ox 99% on R/A; as6 01:30 BP 104 / 68; Pulse 66; Resp 16; Pulse Ox 95% on R/A; ll3 01:30 BP 104 / 68; Pulse 66; Resp 16; Pulse Ox 97% on R/A; ll3 06/24 19:53 Body Mass Index 33.23 (102.06 kg, 175.26 cm) [facility] ED Course: 06/24 19:53 Patient arrived in ED. jj6 19:54 Triage completed. [facility] 19:55 Arm band placed on right wrist. [facility] 20:59 Merna Carr, RN is Primary Nurse. 3 20:59 Declan Wilkinson PA is PHCP. cp 20:59 Rashad Solitario MD is Attending Physician. cp 21:30 Patient has correct armband on for positive identification. Placed in gown. Bed in low eh3 position. Call light in reach. Side rails up X2. Client placed on continuous cardiac and pulse oximetry monitoring. NIBP monitoring applied. Door closed. Noise minimized. Lights dimmed. Warm blanket given. 21:58 Stone Protocol In Process Unspecified. EDMS 23:15 Head of bed elevated. eh3 23:15 No provider procedures requiring assistance completed. [facility] 06/25 01:30 Brodie Alcantara MD is Referral Physician. cp 02:09 IV discontinued, intact, bleeding controlled, No redness/swelling at site. Pressure ll3 dressing applied. Administered Medications: 06/24 21:41 Drug: morphine 4 mg Route: IVP; Infused Over: 4 mins; Site: left antecubital; eh3 22:30 Follow up: Response: Pain is decreased 3 21:41 Drug: Zofran (Ondansetron) 4 mg Route: IVP; Site: left antecubital; eh3 22:30 Follow up: Response: Nausea is decreased 3 21:41 Drug: NS 0.9% 500 ml Route: IV; Rate: bolus; Site: left antecubital; eh3 06/25 00:07 Drug: Rocephin - (cefTRIAXone) 2 grams Route: IVPB; Infused Over: 30 mins; Site: left as6 antecubital; 00:55 Follow up: Response: No adverse reaction; IV Status: Completed infusion; IV Intake: ll3 100ml 00:07 Drug: Flomax (tamsulosin) 0.4 mg Route: PO; as6 02:15 Follow up: Response: No adverse reaction ll3 00:39 Drug: Dilaudid (HYDROmorphone) 1 mg Route: IVP; Site: left antecubital; as6 01:30 Follow up: BP 104 / 68; Pulse 66 bpm; Resp 16 bpm; Pulse Ox 95% RA; Response: No ll3 adverse reaction; Pain is decreased 00:55 Drug: Magnesium Sulfate 1 grams Route: IVPB; Infused Over: 1 hrs; Site: left ll3 antecubital; 02:15 Follow up: Response: No adverse reaction; IV Status: Completed infusion; IV Intake: ll3 100ml 02:08 Drug: Cipro (ciprofloxacin) 500 mg Route: PO; ll3 02:08 Follow up: Response: Medication administered at discharge. ll3 Medication: 06/24 23:00 VIS not applicable for this client. eh3 Intake: 06/25 00:55 IV: 100ml; Total: 100ml. ll3 02:15 IV: 100ml; Total: 200ml. ll3 Outcome: 01:31 Discharge ordered by MD. cp 02:09 Discharged to home ambulatory. ll3 02:09 Condition: stable 02:09 Discharge instructions given to patient, Instructed on discharge instructions, follow up and referral plans. medication usage, Demonstrated understanding of instructions, follow-up care, medications, Prescriptions given X 4. 02:15 Patient left the ED. ll3 Signatures: Dispatcher [employer] EDMS Declan Wilkinson PA PA cp Jeffries, Jennifer jj6 Peggy Card RN RN jh5 Kyree Chavarria RN RN as6 Laurie Ortez RN RN ll3 Merna Carr, RN RN eh3
--- NOTE | 2022-06-25 01:32 | EDPHYS ---
Physician Documentation [facility] Name: Ney Marquez Age: 56 yrs Sex: Male : 1965 Arrival Date: 06/24/2022 Time: 19:53 Bed 7 Private MD: ED Physician Rashad Solitario HPI: 06/24 21:00 This 56 yrs old Unknown Male presents to ER via EMS with complaints of Back Pain. cp 21:00 The patient presents with pain that is acute, with no known mechanism of injury. The cp symptoms are located in the left low back. Onset: The symptoms/episode began/occurred today. The pain radiates to the left lower abdomen. Associated signs and symptoms: Pertinent positives: nausea, vomiting, difficulty urinating, Pertinent negatives: chest pain, constipation, fever, incontinence, numbness, weakness. The patient has experienced similar episodes in the past, today's symptoms are similar, to when the patient was apparently diagnosed with kidney stone. Historical: - Allergies: 19:55 Aleve; jh5 - PMHx: 19:55 Atrial Fib; Hypertension; Kidney stones; swelling of legs; jh5 - Immunization history:: Adult Immunizations up to date. - Social history:: Smoking status: Patient reports the use of cigarette tobacco products. ROS: 21:05 Constitutional: Negative for body aches, chills, fever, poor PO intake. cp 21:05 Eyes: Negative for injury, pain, redness, and discharge. cp 21:05 Cardiovascular: Negative for chest pain, edema, palpitations. 21:05 Respiratory: Negative for cough, shortness of breath, wheezing. 21:05 Abdomen/GI: Positive for abdominal pain, nausea and vomiting, Negative for diarrhea, constipation. 21:05 Back: Positive for pain at rest, pain with movement, of the left low back, Negative for injury or acute deformity, decreased range of motion. 21:05 : Positive for difficulty urinating. 21:05 Skin: Negative for rash. 21:05 Neuro: Negative for altered mental status, headache, weakness. 21:05 All other systems are negative. Exam: 21:10 Constitutional: The patient appears in no acute distress, alert, awake, cp non-diaphoretic, non-toxic, well developed, well nourished, obese, uncomfortable. 21:10 Head/Face: Normocephalic, atraumatic. cp 21:10 Eyes: Periorbital structures: appear normal, Conjunctiva: normal, no exudate, no injection, Sclera: no appreciated abnormality, Lids and lashes: appear normal, bilaterally. 21:10 ENT: External ear(s): are unremarkable, Nose: is normal, Mouth: Lips: moist, Oral mucosa: pink and intact, moist, Posterior pharynx: Airway: no evidence of obstruction, patent. 21:10 Chest/axilla: Inspection: normal. 21:10 Cardiovascular: Rate: normal, Rhythm: regular. 21:10 Respiratory: the patient does not display signs of respiratory distress, Respirations: normal, no use of accessory muscles, no retractions, labored breathing, is not present, Breath sounds: are clear throughout, no decreased breath sounds, no stridor, no wheezing. 21:10 Abdomen/GI: Inspection: abdomen appears normal, Bowel sounds: active, all quadrants, Palpation: soft, in all quadrants, moderate abdominal tenderness, in the anterior aspect of left lateral abdomen, posterior aspect of left lateral abdomen and left lower quadrant, rebound tenderness, is not appreciated, involuntary guarding, is not appreciated. 21:10 Back: pain, that is moderate, of the left low back and left mid back, ROM is normal. 21:10 Skin: no rash present. 21:10 Neuro: Orientation: to person, place \T\ time. Mentation: is normal, Motor: moves all fours, strength is normal, Gait: is steady. Vital Signs: 19:53 BP 119 / 78; Pulse 67; Resp 18; Temp 98.6; Pulse Ox 96% ; Weight 102.06 kg; Height 5 jh5 ft. 9 in. (175.26 cm); Pain 10/10; 22:00 BP 128 / 75; Pulse 79; Resp 18; Pulse Ox 95% on R/A; eh3 22:30 BP 130 / 87; Pulse 66; Resp 18; Pulse Ox 93% on R/A; eh3 23:00 BP 123 / 82; Pulse 78; Resp 18; Pulse Ox 93% on R/A; eh3 06/25 00:39 BP 111 / 73; Pulse 85; Resp 18; Pulse Ox 99% on R/A; as6 01:30 BP 104 / 68; Pulse 66; Resp 16; Pulse Ox 95% on R/A; ll3 01:30 BP 104 / 68; Pulse 66; Resp 16; Pulse Ox 97% on R/A; ll3 06/24 19:53 Body Mass Index 33.23 (102.06 kg, 175.26 cm) jh5 MDM: 06/24 21:09 Patient medically screened. cp 22:00 Differential diagnosis: Pyelonephritis uti, kidney stone, diverticulitis. 06/25 01:30 Data reviewed: vital signs, nurses notes, lab test result(s), radiologic studies, CT cp scan. 01:30 Counseling: I had a detailed discussion with the patient and/or guardian regarding: the cp historical points, exam findings, and any diagnostic results supporting the discharge/admit diagnosis, lab results, radiology results, the need for outpatient follow up, a urologist, to return to the emergency department if symptoms worsen or persist or if there are any questions or concerns that arise at home. Response to treatment: the patient's symptoms have markedly improved after treatment. ED course: VSS. Pain markedly improved. Patient appears non-toxic. Will discharge to home for continued monitoring. 06/24 20:52 Order name: CBC with Diff; Complete Time: 23:23 [facility] 06/24 23:23 Interpretation: Normal except: WBC 11.40; RBC 4.18; HGB 12.6; HCT 37.7; ANA CRISTINA% 86.3; LYM% cp 8.5; NEUT A 9.9. 06/24 20:52 Order name: CMP; Complete Time: 23:23 [facility] 06/24 20:52 Order name: Lipase; Complete Time: 23:23 [facility] 06/24 21:10 Order name: Urine Microscopic Only; Complete Time: 23:23 06/24 23:24 Interpretation: Normal except: UWBC 20-50; URBC >50; UBACT 20-50. 06/24 22:01 Order name: Urine Dipstick-Ancillary; Complete Time: 23:23 [facility] 06/24 22:41 Order name: Urine Culture [facility] 06/24 21:10 Order name: CT Stone Protocol 06/24 21:14 Order name: Stone Protocol; Complete Time: 23:23 [facility] 06/24 20:52 Order name: IV Saline Lock; Complete Time: 21:28 [facility] 06/24 20:52 Order name: Labs collected and sent; Complete Time: 21:28 [facility] 06/24 20:52 Order name: Urine Dipstick-Ancillary (obtain specimen); Complete Time: 21:54 [facility] 06/24 23:55 Order name: PO challenge; Complete Time: 00:07 cp Administered Medications: 06/24 21:41 Drug: morphine 4 mg Route: IVP; Infused Over: 4 mins; Site: left antecubital; 3 22:30 Follow up: Response: Pain is decreased 3 21:41 Drug: Zofran (Ondansetron) 4 mg Route: IVP; Site: left antecubital; 3 22:30 Follow up: Response: Nausea is decreased 3 21:41 Drug: NS 0.9% 500 ml Route: IV; Rate: bolus; Site: left antecubital; [facility] 06/25 00:07 Drug: Rocephin - (cefTRIAXone) 2 grams Route: IVPB; Infused Over: 30 mins; Site: left as6 antecubital; 00:55 Follow up: Response: No adverse reaction; IV Status: Completed infusion; IV Intake: ll3 100ml 00:07 Drug: Flomax (tamsulosin) 0.4 mg Route: PO; as6 02:15 Follow up: Response: No adverse reaction 3 00:39 Drug: Dilaudid (HYDROmorphone) 1 mg Route: IVP; Site: left antecubital; as6 01:30 Follow up: BP 104 / 68; Pulse 66 bpm; Resp 16 bpm; Pulse Ox 95% RA; Response: No 3 adverse reaction; Pain is decreased 00:55 Drug: Magnesium Sulfate 1 grams Route: IVPB; Infused Over: 1 hrs; Site: left 3 antecubital; 02:15 Follow up: Response: No adverse reaction; IV Status: Completed infusion; IV Intake: ll3 100ml 02:08 Drug: Cipro (ciprofloxacin) 500 mg Route: PO; 3 02:08 Follow up: Response: Medication administered at discharge. 3 Disposition Summary: 06/25/22 01:31 Discharge Ordered Location: Home cp Problem: new cp Symptoms: have improved cp Condition: Stable cp Diagnosis - Calculus of kidney with calculus of ureter - left cp Followup: cp - With: Brodie Alcantara MD - When: 2 - 3 days - Reason: pain continues Discharge Instructions: - Discharge Summary Sheet cp - Kidney Stones cp - Renal Colic cp Forms: - Medication Reconciliation Form cp - Thank You Letter cp - Antibiotic Education cp - Prescription Opioid Use cp Prescriptions: - Flomax 0.4 mg Oral capsule - take 1 capsule by ORAL route once daily 1/2 hour following the same meal each cp day; 5 capsule; Refills: 0, Product Selection Permitted - Zofran 4 mg Oral Tablet - take 1 tablet by ORAL route every 12 hours As needed; 20 tablet; Refills: 0, cp Product Selection Permitted - Cipro 500 mg Oral Tablet - take 1 tablet by ORAL route every 12 hours for 7 days; 14 tablet; Refills: 0, cp Product Selection Permitted - Tramadol 50 mg Oral Tablet - take 1 tablet by ORAL route every 8 hours as needed; 12 tablet; Refills: 0, cp Product Selection Permitted Addendum: 06/27/2022 07:33 Co-signature as Attending Physician, Rashad Solitario MD I agree with the assessment and k dr plan of care. Signatures: Dispatcher [employer] EDCA Rashad Solitario MD MD kdr Declan Wilkinson PA PA cp Peggy Card, RN RN jh5 Kyree Chavarria RN RN as6 Laurie Ortez RN RN ll3 Merna Carr RN RN eh3 Sandra Wiley, RN RN [id number]
[2022-06-25] MEDS ORDERED: CIPROFLOXACIN HCL 500 MG TAB ONE (02:12)
[2022-06-25 16:57] VITALS: TEMP 98.6
[2022-06-25 17:09] VITALS: BP 104/68; O2SAT 97
== END 2022-06-25 02:15 | disposition home or self-care (01) ==
LOC: ER 19:41
DX: N20.2 Calculus of kidney with calculus of ureter (principal); F17.210 Nicotine dependence, cigarettes, uncomplicated; Z88.6 Allergy status to analgesic agent
CPT/HCPCS: 96365; 96367; 87088; 85025; 87086; 36415; 83690; 80053; 76377; 74176; 96375; 99284; J1170; J7040; J2405; 81003; 81015

== ENCOUNTER 2022-12-04 03:21 | Observation (INO) | payer OTHER ==
--- OUTSIDE RECORDS SUMMARY | 2022-12-04 03:26 | XMS REPORT | Continuity of Care Document ---
:1965 Author Organization [facility] t Address [address] [place] [address] Care Team Providers Name Role Phone [facility] [phone] Romero Torres Attending Clinician Unavailable Ladarius Shell Attending Clinician Unavailable Matilde Valencia Attending Clinician Unavailable Nurse, Francisca Pob Immunization Attending Clinician Unavailable Godfrey Cardenas DO Attending Clinician GODFREY CARDENAS Attending Clinician Unavailable MICAH BOSWELL Attending Clinician Unavailable MICAH BOSWELL Admitting Clinician Unavailable Payers Payer Name Policy Type Policy Number Effective Date Expiration Date S kiko [facility] C1 [id number] Common Sp yecenia ing Medicare - [facility] C1 [id number] Common Sp yecenia ing Medicare [facility] Problems Condition Condition Condition Status Onset Resolution Last Treating Co mments Source Name Details Category Date Date Treatment Clinician Date Left Left Disease Active 2017-10 Univers ureteral ureteral 10-16 ity of stone stone 00:00: [place] 00 Medical Branch Complicate Complicate Disease Active C [facility] d UTI d UTI 04-16 kes (urinary (urinary 00:00: Medica l tract tract 00 [place] infection) infection) Obstructio Obstructio Disease Active [facility] of left n of left 04-16 [place] [facility] ureteropel ureteropel 00:00: Me dical maribel maribel 00 [place] junction junction due to due to stone stone Obstructiv Obstructiv Disease Active C HI [facility] e uropathy e uropathy 03-22 Carmen kes 00:00: [address] SANTOS (acute SANTOS (acute Disease Active [facility] kidney kidney 02-05 [facility] injury) 00:[facility]: Medical [address] [place] [address] Renal Renal Disease Active [facility] stone stone 02-05 [facility] Medical [address] [place] [address] Hydronephr Hydronephr Disease Active [facility] osis osis 02-05 [facility]: [address] HTN HTN Disease Active [facility] (hypertens (hypertens 02-05 Carmen kes ion) ion) 00:00: Medical [address] [place] [address] Septic Septic Disease Active [facility] shock shock 02-04 [facility] Obesity Mildly Problem Common obese [facility] Gammopathy Gammopathy Problem C ommon [facility] Anemia of Anemia Problem Common chronic associated Spiri t renal with - [facility]I failure chronic renal [facility] failure Medical Center Fatty Fatty Problem Common liver liver [facility] Anemia in Anemia in Problem Com mon chronic chronic [facility] kidney kidney - [facility]I disease disease [facility] [id number] Diabetic Problem Comm on polyneurop Spirit athy - CHI associated St with type [facility] 2 diabetes Medica l mellitus Center Edema Edema Problem Common [facility] Abnormal Abnormal Problem Commo n urine urine [facility] Hypertrigl Hypertrigl Problem C ommon yceridemia yceridemia Sp yecenia [facility] Hypokalemi Hypokalemi Problem C martellmon a a Spirit - [facility] Hyperglyce Hyperglyce Problem C ommon jacinto jacinto Spirit [facility] Eosinophil Eosinophil Problem C jacinda ia ia [facility] [id number] Peripheral Problem Co mmon edema Spirit - [facility] [id number] Adult BMI Problem Com mon 35.0-35.9 Spirit kg/sq m - [facility] [id number] Pain in Problem Common right knee Spirit [facility] [id number] Hypoxia Problem Commo n Spirit - [facility] [id number] [place] [id number] left knee Spirit [facility] [id number] Other Problem Common chronic Spirit pain - [facility] [id number] Elevated Problem Comm on serum [facility] creatinine - [facility] [id number] Hyperlipid Problem Com mon emia, Spirit unspecifie - CHI d hyperlipid [facility] emia [facility] [id number] Dependence Problem Co mmon on CPAP Spirit ventilatio - CHI n [facility] [id number] Body mass Problem Com mon index Spirit (BMI) of - CHI 40.0-44.[address] 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 [facility] nephropath Medica l y Center [id number] Erectile Problem Comm on dysfunctio Spirit n, - CHI unspecifie St erectile [facility] dysfunctio Medica l n type [place] [id number] Skin Problem Common lesion [facility] 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 l - CHI gammopathy St of unknown [facility] significan Medica l ce) Center [id number] Prediabete Problem Co mmon s [facility] [id number] Essential Problem Comm on hypertensi [facility] on [facility] [id number] 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 [facility] Allergies, Adverse Reactions, Alerts Allergy Allergy Status Severity Reaction(s) Onset Inactive Treating Comm ents Source Name Type Date Date Clinician Naproxen Propensi Active Swelling 2017-10 Univ ers Sodium ty to 10-15 ity of adverse 00:00: [place] reaction 00 Medical s Branch NAPROXEN DRUG Active Swelling 2017-10 Univer s SODIUM INGREDI 10-15 ity of 00:00: [place] 00 Medical Branch Naproxen Drug Active Swelling Lips [facility] Sodium Allergy 02-[facility] 00:[facility]: [address] naproxen naproxen Active Lip swelling [facility] Social History Social Habit Start Date Stop Date Quantity Comments Source History of Common [facility] Tobacco Use - [facility] History SDOH [facility] Alcohol Frequency [facility] SDOH [facility] Binge Medical [facility] Alcohol intake 2017-04-22 2017-04-22 Current drinker of CH I St kes 00:00:00 00:00:00 alcohol (finding) [facility] Alcohol Comment 2017-04-17 2017-04-[address] [facility] 00:00:00 00:00:00 [facility] Tobacco use and 2016-03-23 2016-03-23 Never used [facility] St Carmen kes exposure 00:00:00 00:00:00 [facility] Sex [birth year] [facility] [address] Carmen kes 00:00:00 00:00:00 [facility] Smoking Status Start Date Stop Date Source Unknown if ever smoked [facility] Never Smoker [facility] Medications Ordered Filled Start Stop Current Ordering Indication Dosage Frequency Signature Comments Components Source Medication Medication Date Date Medication? Clinician (SIG) Name Name Gabapentin Gabapentin 2021-10 No 1{capsu TID Gabapentin 300 MG 300 MG 1-08 le} 300 MG 00:00: 00 Gabapentin Gabapentin 2021-10 No 1{capsu TID Gabapentin 300 MG 300 MG -08 le} 300 MG 00:00: 00 Fluticasone Fluticasone No 1{spray QD Fluticason Propionate Propionate 8-10 _in_eac e 50 MCG/ACT 50 MCG/ACT 00:00: h_nostr Propionate 00 il} 50 MCG/ACT Lipitor 10 Lipitor 10 No 1{table QD Lipitor 10 MG MG 8-10 t} MG 00:00: 00 Fluticasone Fluticasone No 1{spray QD Fluticason Propionate Propionate 8-10 _in_eac e 50 MCG/ACT 50 MCG/ACT 00:00: h_nostr Propionate 00 il} 50 MCG/ACT Lipitor 10 Lipitor 10 No 1{table QD Lipitor 10 MG MG 8-10 t} MG 00:00: 00 tamsulosin 2017-10 Yes Take by Univ ers [...] 19:29: daily. Medica l 58 Center doxycycline 2017-0 Yes 100mg Q.5D Take [address] (VIBRAMYCIN 7-11 mg by [facility] ) 100 MG 19:29: mouth 2 Medica l capsule 58 (two) Center times daily. carvedilol 2017-0 Yes hypertensio 25mg Take [address] (COREG) 25 7-11 n by mouth 2 Tello es MG tablet 19:29: (two) Medical 58 times Center daily with breakfast and dinner. lisinopril 20170 Yes hypertensio 20mg QD Take [address] (PRINIVIL,Z 7-11 n by mouth Luke s ESTRIL) 20 19:29: daily. Medic al MG tablet 58 Center furosemide 0 Yes 20mg QD Take [address] (LASIX) 20 7-11 by mouth [facility] MG tablet 19:29: daily. Medica l 58 Center doxycycline 2016-0 Yes 100mg Q.5D Take [address] (VIBRAMYCIN 7-11 mg by [facility] ) 100 MG 19:29: mouth 2 Medica l capsule 58 (two) Center times daily. carvedilol 0 Yes hypertensio 25mg Take [address] (COREG) 25 7-11 n by mouth 2 Tello es MG tablet 19:29: (two) Medical 58 times Center daily with breakfast and dinner. lisinopril 0 Yes hypertensio 20mg QD Take [address] (PRINIVIL,Z 7-11 n by mouth Luke s ESTRIL) 20 19:29: daily. Medic al MG tablet 58 Center furosemide 0 Yes 20mg QD Take [address] (LASIX) 20 7-11 by mouth [facility] MG tablet 19:29: daily. Medica l 58 Center doxycycline 2017-0 Yes 100mg Q.5D Take [address] (VIBRAMYCIN 7-11 mg by [facility] ) 100 MG 19:29: mouth 2 Medica l capsule 58 (two) Center times daily. tamsulosin 2017-0 Yes .4mg QD Take 1 CHI S t (FLOMAX) 7-11 capsule [facility] 0.4 mg Cp24 00:00: (0.4 mg Med ical 24 hr 00 total) by Center capsule mouth nightly. tamsulosin 2017-0 Yes .4mg QD Take 1 CHI S t (FLOMAX) 7-11 capsule [facility] 0.4 mg Cp24 00:00: (0.4 mg Med ical 24 hr 00 total) by Center capsule mouth nightly. tamsulosin 2017-0 Yes .4mg QD Take 1 CHI S t (FLOMAX) 7-11 capsule [facility] 0.4 mg Cp24 00:00: (0.4 mg Med ical 24 hr 00 total) by Center capsule mouth nightly. carvedilol 2016-0 Yes 12.5mg Q.5D Take 12.5 Methodi (COREG) 6-[address] 12.5 MG 20:54: mouth 2 Hospita tablet 02 (two) l times a day with meals. furosemide 2016-0 Yes 20mg Q.5D Take 20 mg M ethodi (LASIX) 20 6-[address] MG tablet 20:54: (two) Hospita 02 times a l day. lisinopril 2016-0 Yes 10mg QD Take 10 mg M ethodi (PRINIVIL,Z 6-[address] ESTRIL) 10 20:54: daily. Hospi ta MG tablet 02 l carvedilol 2016-0 Yes 12.5mg Q.5D Take 12.5 [facility] (COREG) 6-[address] 12.5 MG 20:54: mouth 2 Hospita tablet 02 (two) l times a day with meals. furosemide 2016-0 Yes 20mg Q.5D Take 20 mg M ethodi (LASIX) 20 6-[address] MG tablet 20:54: (two) Hospita 02 times a l day. lisinopril 2016-0 Yes 10mg QD Take 10 mg M ethodi (PRINIVIL,Z 6-[address] ESTRIL) 10 20:54: daily. Hospi ta MG tablet 02 l meloxicam 2016-0 Yes 15mg QD Take 15 mg Me thodi (MOBIC) 15 6-[address] MG tablet 20:54: daily. Hospit a 02 l meloxicam 2016-0 Yes 15mg QD Take 15 mg Me thodi (MOBIC) 15 6-[address] MG tablet 20:54: daily. Hospit a 02 l carvedilol 2016-0 Yes 12.5mg Q.5D Take 12.5 [facility] (COREG) [...] l Lisinopril Lisinopril Yes Matilde 1 tablet [facility] Coreg Coreg Yes Matilde 1 tablet [facility] Lisinopril Lisinopril No 1{table QD Lisinopril 20 MG 20 MG t} 20 MG Lisinopril Lisinopril No 1{table BID Lisinopril 20 MG 20 MG t} 20 MG Tadalafil Tadalafil No 1{table Tadalafil 20 MG 20 MG t_as_ne 20 MG eded} Multivitami Multivitami No Multivitam n - n - in - Lisinopril Lisinopril No Lisinopril 20 MG 20 MG 20 MG Tadalafil Tadalafil No 1{table Tadalafil 20 MG 20 MG t_as_ne 20 MG eded} Furosemide Furosemide No QD Furosemide 20 MG 20 MG 20 MG Flomax 0.4 Flomax 0.4 No 1{capsu QD Flomax 0.4 MG MG le} MG metFORMIN metFORMIN No metFORMIN HCl 500 MG HCl 500 MG HCl 500 MG Carvedilol Carvedilol No Carvedilol 25 MG 25 MG 25 MG Flomax 0.4 Flomax 0.4 No Flomax 0.4 MG MG MG Furosemide Furosemide No QD Furosemide 20 MG 20 MG 20 MG Flomax 0.4 Flomax 0.4 No Flomax 0.4 MG MG MG Lisinopril Lisinopril No Lisinopril 20 MG 20 MG 20 MG metFORMIN metFORMIN No metFORMIN HCl 500 MG HCl 500 MG HCl 500 MG Carvedilol Carvedilol No Carvedilol 25 MG 25 MG 25 MG Tadalafil Tadalafil No 1{table Tadalafil 20 MG 20 MG t_as_ne 20 MG eded} Lipitor 10 Lipitor 10 No 1{table QD Lipitor 10 MG MG t} MG Flomax 0.4 Flomax 0.4 No 1{capsu QD Flomax 0.4 MG MG le} MG Furosemide Furosemide No Furosemide 20 MG 20 MG 20 MG Lisinopril Lisinopril No 1{table BID Lisinopril 20 MG 20 MG t} 20 MG Multivitami Multivitami No Multivitam n - n - in - Atorvastati Atorvastati No Atorvastat n Calcium n Calcium in Calcium 10 MG 10 MG 10 MG Coreg 25 MG Coreg 25 MG No 1{table BID Coreg 25 t} MG Fluticasone Fluticasone No 1{spray QD Fluticason Propionate Propionate _in_eac e 50 MCG/ACT 50 MCG/ACT h_nostr Propionate il} 50 MCG/ACT Atorvastati Atorvastati No Atorvastat n Calcium n Calcium in Calcium 10 MG 10 MG 10 MG metFORMIN metFORMIN No metFORMIN HCl 500 MG HCl 500 MG HCl 500 MG Lipitor 10 Lipitor 10 No 1{table QD Lipitor 10 MG MG t} MG Tadalafil Tadalafil No 1{table Tadalafil 20 MG 20 MG t_as_ne 20 MG eded} Multivitami Multivitami No Multivitam n - n - in - Coreg 25 MG Coreg 25 MG No 1{table BID Coreg 25 t} MG Carvedilol Carvedilol No Carvedilol 25 MG 25 MG 25 MG Furosemide Furosemide No Furosemide 20 MG 20 MG 20 MG Furosemide Furosemide No QD Furosemide 20 MG 20 MG 20 MG Fluticasone Fluticasone No 1{spray QD Fluticason Propionate Propionate _in_eac e 50 MCG/ACT 50 MCG/ACT h_nostr Propionate il} 50 MCG/ACT Lisinopril Lisinopril No Lisinopril 20 MG 20 MG 20 MG Lisinopril Lisinopril No 1{table BID Lisinopril 20 MG 20 MG t} 20 MG Flomax 0.4 Flomax 0.4 No Flomax 0.4 MG MG MG Flomax 0.4 Flomax 0.4 No 1{capsu QD Flomax 0.4 MG MG le} MG Lipitor 10 Lipitor 10 No 1{table QD Lipitor 10 MG MG t} MG Atorvastati Atorvastati No Atorvastat n Calcium n Calcium in Calcium 10 MG 10 MG 10 MG Furosemide Furosemide No Furosemide 20 MG 20 MG 20 MG metFORMIN metFORMIN No metFORMIN HCl 500 MG HCl 500 MG HCl 500 MG Flomax 0.4 Flomax 0.4 No Flomax 0.4 MG MG MG Lisinopril Lisinopril No 1{table BID Lisinopril 20 MG 20 MG t} 20 MG Tadalafil Tadalafil No 1{table Tadalafil 20 MG 20 MG t_as_ne 20 MG eded} Carvedilol Carvedilol No Carvedilol 25 MG 25 MG 25 MG Flomax 0.4 Flomax 0.4 No 1{capsu QD Flomax 0.4 MG MG le} MG Fluticasone Fluticasone No 1{spray QD Fluticason Propionate Propionate _in_eac e 50 MCG/ACT 50 MCG/ACT h_nostr Propionate il} 50 MCG/ACT Furosemide Furosemide No QD Furosemide 20 MG 20 MG 20 MG Multivitami Multivitami No Multivitam n - n - in - Lisinopril Lisinopril No Lisinopril 20 MG 20 MG 20 MG Coreg 25 MG Coreg 25 MG No 1{table BID Coreg 25 t} MG Fluticasone Fluticasone No 1{spray QD Fluticason Propionate Propionate _in_eac e 50 MCG/ACT 50 MCG/ACT h_nostr Propionate il} 50 MCG/ACT Carvedilol Carvedilol No Carvedilol 25 MG 25 MG 25 MG metFORMIN metFORMIN No metFORMIN HCl 500 MG HCl 500 MG HCl 500 MG Atorvastati Atorvastati No Atorvastat n Calcium n Calcium in Calcium 10 MG 10 MG 10 MG Flomax 0.4 Flomax 0.4 No Flomax 0.4 MG MG MG Tadalafil Tadalafil No 1{table Tadalafil 20 MG 20 MG t_as_ne 20 MG eded} Lipitor 10 Lipitor 10 No 1{table QD Lipitor 10 MG MG t} MG Lisinopril Lisinopril No Lisinopril 20 MG 20 MG 20 MG Coreg 25 MG Coreg 25 MG No 1{table BID Coreg 25 t} MG Lisinopril Lisinopril No 1{table BID Lisinopril 20 MG 20 MG t} 20 MG Multivitami Multivitami No Multivitam n - n - in - Furosemide Furosemide No Furosemide 20 MG 20 MG 20 MG Lipitor 10 Lipitor 10 No 1{table QD Lipitor 10 MG MG t} MG Lisinopril Lisinopril No Lisinopril 20 MG 20 MG 20 MG Carvedilol Carvedilol No Carvedilol 25 MG 25 MG 25 MG Furosemide Furosemide No Furosemide 20 MG 20 MG 20 MG Coreg 25 MG Coreg 25 MG No 1{table BID Coreg 25 t} MG Lisinopril Lisinopril No 1{table BID Lisinopril 20 MG 20 MG t} 20 MG Tadalafil Tadalafil No 1{table Tadalafil 20 MG 20 MG t_as_ne 20 MG eded} Flomax 0.4 Flomax 0.4 No 1{capsu QD Flomax 0.4 MG MG le} MG metFORMIN metFORMIN No metFORMIN HCl 500 MG HCl 500 MG HCl 500 MG Fluticasone Fluticasone No 1{spray QD Fluticason Propionate Propionate _in_eac e 50 MCG/ACT 50 MCG/ACT h_nostr Propionate il} 50 MCG/ACT Furosemide Furosemide No QD Furosemide 20 MG 20 MG 20 MG Flomax 0.4 Flomax 0.4 No 1{capsu QD Flomax 0.4 MG MG le} MG Multivitami Multivitami No Multivitam n - n - in - Atorvastati Atorvastati No Atorvastat n Calcium n Calcium in Calcium 10 MG 10 MG 10 MG Lipitor 10 Lipitor 10 No 1{table QD Lipitor 10 MG MG t} MG Lisinopril Lisinopril No Lisinopril 20 MG 20 MG 20 MG Carvedilol Carvedilol No Carvedilol 25 MG 25 MG 25 MG Furosemide Furosemide No Furosemide 20 MG 20 MG 20 MG Coreg 25 MG Coreg 25 MG No 1{table BID Coreg 25 t} MG Lisinopril Lisinopril No 1{table BID Lisinopril 20 MG 20 MG t} 20 MG Tadalafil Tadalafil No 1{table Tadalafil 20 MG 20 MG t_as_ne 20 MG eded} Flomax 0.4 Flomax 0.4 No 1{capsu QD Flomax 0.4 MG MG le} MG metFORMIN metFORMIN No metFORMIN HCl 500 MG HCl 500 MG HCl 500 MG Fluticasone Fluticasone No 1{spray QD Fluticason Propionate Propionate _in_eac e 50 MCG/ACT 50 MCG/ACT h_nostr Propionate il} 50 MCG/ACT Furosemide Furosemide No QD Furosemide 20 MG 20 MG 20 MG Flomax 0.4 Flomax 0.4 No 1{capsu QD Flomax 0.4 MG MG le} MG Multivitami Multivitami No Multivitam n - n - in - Atorvastati Atorvastati No Atorvastat n Calcium n Calcium in Calcium 10 MG 10 MG 10 MG Flomax 0.4 Flomax 0.4 No 1{capsu QD Flomax 0.4 MG MG le} MG Atorvastati Atorvastati No Atorvastat n Calcium n Calcium in Calcium 10 MG 10 MG 10 MG Tamsulosin Tamsulosin No Tamsulosin HCl 0.4 MG HCl 0.4 MG HCl 0.4 MG Coreg 25 MG Coreg 25 MG No 1{table BID Coreg 25 t} MG Carvedilol Carvedilol No Carvedilol 25 MG 25 MG 25 MG Multivitami Multivitami No Multivitam n - n - in - Furosemide Furosemide No Furosemide 20 MG 20 MG 20 MG Tadalafil Tadalafil No 1{table Tadalafil 20 MG 20 MG t_as_ne 20 MG eded} Lisinopril Lisinopril No Lisinopril 20 MG 20 MG 20 MG Fluticasone Fluticasone No 1{spray QD Fluticason Propionate Propionate _in_eac e 50 MCG/ACT 50 MCG/ACT h_nostr Propionate il} 50 MCG/ACT metFORMIN metFORMIN No metFORMIN HCl 500 MG HCl 500 MG HCl 500 MG Lisinopril Lisinopril No Lisinopril 20 MG 20 MG 20 MG Coreg 25 MG Coreg 25 MG No 1{table BID Coreg 25 t} MG metFORMIN metFORMIN No metFORMIN HCl 500 MG HCl 500 MG HCl 500 MG Atorvastati Atorvastati No Atorvastat n Calcium n Calcium in Calcium 10 MG 10 MG 10 MG Lipitor 10 Lipitor 10 No 1{table QD Lipitor 10 MG MG t} MG Lisinopril Lisinopril No 1{table BID Lisinopril 20 MG 20 MG t} 20 MG Furosemide Furosemide No QD Furosemide 20 MG 20 MG 20 MG Fluticasone Fluticasone No 1{spray QD Fluticason Propionate Propionate _in_eac e 50 MCG/ACT 50 MCG/ACT h_nostr Propionate il} 50 MCG/ACT Multivitami Multivitami No Multivitam n - n - in - Carvedilol Carvedilol No Carvedilol 25 MG 25 MG 25 MG Tadalafil Tadalafil No Tadalafil 20 MG 20 MG 20 MG Tamsulosin Tamsulosin No Tamsulosin HCl 0.4 MG HCl 0.4 MG HCl 0.4 MG Coreg 25 MG Coreg 25 MG No 1{table BID Coreg 25 t} MG Gabapentin Gabapentin No 1{capsu TID Gabapentin 300 MG 300 MG le} 300 MG Flomax 0.4 Flomax 0.4 No 1{capsu QD Flomax 0.4 MG MG le} MG Furosemide Furosemide No Furosemide 20 MG 20 MG 20 MG Coreg 25 MG Coreg 25 MG No 1{table BID Coreg 25 t} MG Flomax 0.4 Flomax 0.4 No 1{capsu QD Flomax 0.4 MG MG le} MG Furosemide Furosemide No QD Furosemide 20 MG 20 MG 20 MG Coreg 25 MG Coreg 25 MG No Coreg 25 MG Flomax 0.4 Flomax 0.4 No Flomax 0.4 MG MG MG metFORMIN metFORMIN No metFORMIN HCl 500 MG HCl 500 MG HCl 500 MG Multivitami Multivitami No Multivitam n - n - in - Flomax 0.4 Flomax 0.4 2021- No 1{capsu QD Flomax 0.4 MG MG - le} MG 00:00 :00 Immunizations Ordered Filled Immunization Date Status Comments Sour e Immunization Name Name SARS-COV-2 COVID-19 2021-10-18 Completed Unive rsity of MODERNA BOOSTER 00:00:00 [facility] VACCINE Branch SARS-COV-2 COVID-19 2020-12-15 Completed Unive rsity of MODERNA VACCINE 00:00:00 [facility] SARS-COV-2 COVID-19 2020-11-17 Completed Unive rsity of MODERNA VACCINE 00:00:00 [facility] Vital Signs Vital Name Observation Time Observation Value Comments Source height 2022-09-15 16:30:00 70.75 [in_i] [facility] weight 2022-09-15 16:30:00 240 [lb_av] Common [facility] temperature 2022-09-15 16:30:00 97 [degF] Common S pirit - [facility] bmi 2022-09-15 16:30:00 33.71 kg/m2 Common S pirit - [facility] blood pressure 2022-09-15 16:30:00 120 mm[Hg] Common [facility] - systolic [facility] blood pressure 2022-09-15 16:30:00 89 mm[Hg] Common [facility] - diastolic [facility] height 2022-05-08 15:50:00 70.75 [in_i] Common S pirit [facility] weight 2022-05-08 15:50:00 249.5 [lb_av] [facility] temperature 2022-05-08 15:50:00 97.0 [facility]degF[facility]mi 2022-05-08 15:50:00 35.04 kg/m2 [facility] S pirit [facility] oximetry 2022-05-08 15:50:00 96 % [facility] respiratory rate 2022-05-08 15:50:00 17 /min Comm on Spirit - [facility] blood pressure 2022-05-08 15:50:00 101 mm[Hg] Common [facility] - systolic [facility] blood pressure 2022-05-08 15:50:00 57 mm[Hg] Common Spirit - diastolic [facility] height 2022-05-08 16:00:00 70.75 [in_i] Common S pirit - [facility] weight 2022-05-08 16:00:00 249.5 [lb_av] [facility] temperature 2022-05-08 16:00:00 97.0 [degF] Common S pirit [facility] bmi 2022-05-08 16:00:00 35.04 kg/m2 [facility] S [facility] oximetry 2022-05-08 16:00:00 96 % [facility] respiratory rate 2022-05-08 16:00:00 17 /min Comm on [facility] blood pressure 2022-05-08 16:00:00 101 mm[Hg] Common [facility] - systolic [facility] blood pressure 2022-05-08 16:00:00 57 mm[Hg] Common [facility] - diastolic [facility] height 2021-12-24 16:10:00 70.75 [in_i] Common [facility] weight 2021-12-24 16:10:00 265 [lb_av] Common S [facility] temperature 2021-12-24 16:10:00 98 [degF] Common S [facility] bmi 2021-12-24 16:10:00 37.22 kg/m2 [facility] blood pressure 2021-12-24 16:10:00 131 mm[Hg] Common [facility] - systolic [facility] blood pressure 2021-12-24 16:10:00 70 mm[Hg] Common [facility] - diastolic [facility] height 2021-05-21 13:50:00 70.75 [in_i] Common [facility] weight 2021-05-21 13:50:00 266.4 [lb_av] [facility] temperature 2021-05-21 13:50:00 96.4 [degF] [facility] bmi 2021-05-21 13:50:00 37.41 kg/m2 [facility] oximetry 2021-05-21 13:50:00 96 % [facility] respiratory rate 2021-05-21 13:50:00 17 /min Comm on [facility] blood pressure 2021-05-21 13:50:00 135 mm[Hg] [facility] systolic [facility] blood pressure 2021-05-21 13:50:00 72 mm[Hg] [facility] diastolic [facility] Procedures Procedure Date / Time Performed Performing Clinician [facility] e SARS-COV-2 COVID-19 2021-10-18 22:10:15 Doctor Unassigned, No [facility] [place] VACCINE Name Medical Branch BOOSTER,0.25ML,IM (MODERNA) Plan of Care Planned Activity Planned Date Details Comments Source Future Scheduled 2022-11-06 COVID-19 VACCINE (#1) [facility] Test 03:42:01 [code = COVID-19 VACCINE (#1)] Future Scheduled 2022-11-06 COLONOSCOPY SCREENING [facility] Test 03:42:01 [code = COLONOSCOPY SCREENING] Future Scheduled 2022-11-06 SHINGLES VACCINES (1 Met [facility] Hospital Test 03:42:01 of 2) [code = SHINGLES VACCINES (1 of 2)] Future Scheduled 2022-11-06 INFLUENZA VACCINE [facility] Test 03:42:01 [code = INFLUENZA VACCINE] Future Scheduled 2022-11-06 COLONOSCOPY SCREENING [facility] Test 03:42:01 [code = COLONOSCOPY SCREENING] Future Scheduled 2022-11-06 SHINGLES VACCINES (1 [facility] [facility] Test 03:42:01 of 2) [code = SHINGLES VACCINES (1 of 2)] Future Scheduled 2022-11-06 INFLUENZA VACCINE Method [facility] Hospital Test 03:42:01 [code = INFLUENZA VACCINE] Future Scheduled 2022-11-06 COVID-19 VACCINE (#1) [facility] Test 03:42:01 [code = COVID-19 VACCINE (#1)] Future Scheduled 2022-06-12 COLONOSCOPY SCREENING [facility] Test 07:25:43 [code = COLONOSCOPY SCREENING] Future Scheduled 2022-06-12 SHINGLES VACCINES (1 Met [facility] Hospital Test 07:25:43 of 2) [code = SHINGLES VACCINES (1 of 2)] Future Scheduled 2022-06-12 INFLUENZA VACCINE [facility] Test 07:25:43 [code = INFLUENZA VACCINE] Future Scheduled 2022-06-12 HEPATITIS B VACCINES Met [facility] Test 07:25:43 (1 of 3 - 3-dose series) [code = HEPATITIS B VACCINES (1 of 3 - 3-dose series)] Future Scheduled 2022-06-12 COVID-19 VACCINE (#1) [facility] Test 07:25:43 [code = COVID-19 VACCINE (#1)] Encounters Start End Encounter Admission Attending Care Care Encounter Source Date/Time Date/Time Type Type Clinicians Facility Department ID 2022-09-22 Outpatient Torres, STLMLC STLC [id number] Common 11:02:00 Romero [facility] 2022-09-16 Outpatient Torres, STLMLC STLC [id number] Common 12:20:00 Romero [facility] 2022-09-11 Outpatient Torres, STLMLC STLC [id number] Common 14:00:01 Romero [facility] 2022-05-08 Outpatient Torres, STLMLC STLC [id number] Common 16:40:00 Romero [facility] 2021-11-15 Outpatient Torres, STLMLC STLC [id number] Common 11:33:01 Romero [facility] 2021-11-06 Outpatient Torres, STLMLC STLC [id number] Common 15:13:00 Romero [facility] 2021-11-06 Outpatient Torres, STLMLC STLC [id number] Common 14:07:49 Romero [facility] 2021-11-06 Outpatient Torres, STLMLC STLC [id number] Common 13:36:44 Romero [facility] 2021-11-06 Outpatient Torres, STLMLC STLC [id number] Common 13:36:17 Romero [facility] 2021-11-06 Outpatient Torres, STLMLC STLC [id number] Common 12:39:10 Romero 79918 [facility] 2021-11-06 Outpatient Torres, STLMLC STLC [id number] Common 12:38:07 Romero [facility] 2021-11-06 Outpatient Torres, STLMLC STLC [id number] Common 12:36:12 Romero [facility] 2021-11-06 Outpatient Torres, STLMLC STLC [id number] Common 12:26:31 [facility] [address] [facility] 2021-11-06 Outpatient Torres, STLMLC STLMLC [id number] Common 12:25:33 [facility] 57419 [facility] 2021-11-06 Outpatient Torres, STLMLC STLMLC [id number] Common 12:19:33 [facility] 96607 [facility] 2021-11-06 Outpatient Torres, STLMLC STLMLC [id number] Common 12:14:55 [facility] 83007 [facility] 2021-11-06 Outpatient Suleman, Kin STLMLC STLMLC [id number] Common 12:14:45 44113 [facility] 2021-11-06 Outpatient Suleman, Kin STLMLC STLMLC [id number] Common 12:11:08 93607 [facility] 2021-11-06 Outpatient Suleman, Kin STLMLC STLMLC [id number] Common 12:10:25 88440 [facility] 2021-11-06 Outpatient Suleman, Kin STLMLC STLMLC [id number] Common 12:04:50 22495 [facility] 2021-11-06 Outpatient Suleman, Kin STLMLC STLMLC [id number] Common 12:03:29 64731 [facility] 2021-11-06 Outpatient Millender, STLMLC STLMLC [id number] Common 11:27:55 Matilde 60679 [facility] 2021-11-06 Outpatient Millender, STLMLC STLMLC [id number] Common 11:03:47 Matilde 20684 [facility] 2021-11-06 Outpatient Millender, STLMLC STLMLC [id number] Common 11:03:24 Matilde 67084 [facility] 2022-09-15 2022-09-15 OFFICE STLMLC STLMLC [id number] Co mmon 00:00:00 00:00:00 VISIT [facility] 4 [facility] 2022-08-19 2022-08-19 (TEL) STLMLC STLMLC [id number] Co mmon 00:00:00 00:00:00 [facility] 2022-05-08 2022-05-08 OFFICE STLMLC STLMLC [id number] Co mmon 00:00:00 00:00:00 VISIT [facility] ESTAB PT - [facility] LEVEL 4 [facility] 2022-05-08 2022-05-08 SUB ANNUAL STLMLC STLMLC [id number] Common 00:00:00 00:00:00 MCR [facility] WELLNESS - CHI VISIT [facility] 2022-02-07 2022-02-07 (TEL) STLMLC STLMLC [id number] Co mmon 00:00:00 00:00:00 [facility] 2021-12-24 2021-12-24 OFFICE STLMLC STLMLC [id number] Co mmon 00:00:00 00:00:00 VISIT [facility] ESTAB PT - [facility] LEVEL 4 [facility] 2021-11-21 2021-11-21 (TEL) STLMLC STLMLC [id number] Co mmon 00:00:00 00:00:00 [facility] 2021-11-07 2021-11-07 (TEL) STLMLC STLMLC [id number] Co mmon 00:00:00 00:00:00 [facility] 2021-10-18 2021-10-18 Imm/Inj Nurse, Adc Pob Immunization [facility] [id number] Univers 16:00:00 16:00:26 Visit Godfrey Cardenas [id number] [facility] [id number] Martin DURAN [id number] Ga dical [address] 2021-10-18 2021-10-18 Outpatient Chris [facility] [id number] Univers 16:00:00 16:00:26 GODFREY avila [facility] 2021-07-16 2021-07-16 (TEL) STLMLC STLMLC [id number] Co mmon 00:00:00 00:00:00 [facility] 2021-05-21 2021-05-21 OFFICE STLMLC STLMLC [id number] Co mmon 00:00:00 00:00:00 VISIT [facility] 4 [facility] 2021-02-13 2021-02-13 Outpatient STLMLC STLMLC [id number] Common 00:00:00 00:00:00 [facility] 2021-01-21 2021-01-21 Outpatient STLMLC STLMLC [id number] Common 00:00:00 00:00:00 [facility] 2020-12-20 2020-12-20 Outpatient STLMLC STLMLC [id number] Common 00:00:00 00:00:00 [facility] 2020-12-15 2020-12-15 Outpatient [facility] [id number] Univers 14:10:00 14:10:00 [facility] 2020-11-17 2020-11-17 Outpatient [facility] [id number] Univers 14:10:00 14:10:00 [facility] 2020-11-08 2020-11-08 Outpatient STLMLC STLMLC [id number] Common 00:00:00 00:00:00 [facility] 2020-11-08 2020-11-08 Outpatient STLMLC STLMLC [id number] Common 00:00:00 00:00:00 [facility] 2020-10-22 2020-10-22 Outpatient STLMLC STLMLC [id number] Common 00:00:00 00:00:00 [facility] 2020-09-29 2020-09-29 Outpatient STLMLC STLMLC [id number] Common 00:00:00 00:00:00 [facility] 2020-09-17 2020-09-17 Outpatient STLMLC STLMLC [id number] Common 00:00:00 00:00:00 [facility] 2020-08-20 2020-08-20 Outpatient STLMLC STLMLC [id number] Common 00:00:00 00:00:00 [facility] 2020-02-17 2020-02-17 [facility] [id number] Common 10:33:00 10:33:[address] [facility] 2019-12-29 2019-12-29 [facility] [id number] Common 14:20:00 14:20:[address] [facility] 2019-11-09 2019-11-09 [facility] [id number] Common 08:45:00 08:45:[address] [facility] 2019-09-22 2019-09-22 [facility] [id number] Common 08:00:00 08:00:[address] [facility] 2019-09-14 2019-09-14 [facility] [id number] Common 15:33:00 15:33:[address] [facility] 2019-04-04 2019-04-04 [facility] [id number] Common 09:00:00 09:00:[address] [facility] 2019-03-25 2019-03-25 [facility] [id number] Common 14:39:00 14:39:[address] [facility] 2019-03-23 2019-03-23 [facility] [id number] Common 15:00:00 15:00:[address] [facility] 2018-12-11 2018-12-11 [facility] [id number] Common 11:48:00 11:48:[address] [facility] 2018-12-08 2018-12-08 [facility] [id number] Common 14:45:00 14:45:[address] [facility] 2018-11-30 2018-11-30 [facility] [id number] Common 16:46:00 16:46:[address] [facility] 2018-09-23 2018-09-23 [facility] [id number] Common 11:45:00 11:45:[address] [facility] 2018-04-26 2018-04-26 [facility] [id number] Common 20:50:00 20:50:00 t [facility] [address] [facility] 2018-04-21 2018-04-21 Out[facility] [id number] Common 14:30:00 14:30:00 t [facility] [address] [facility] 2018-03-26 2018-03-26 [facility] [id number] Common 14:30:00 14:30:00 t [facility] [address] [facility] 2018-01-19 2018-01-19 [facility] [id number] Common 13:30:00 13:30:00 t [facility] [address] [facility] Results Test Description Test Time Test Comments Results Result Comments Source BLOOD CULTURE 2017-04-22 00:00:00 Test Item Value Reference Range Interpretation Comme nts CULTURE (BEAKER) (test code = 1095) No growth in 5 days BLOOD [id number] 00:00:00 Test Item Value Reference Range Interpretation Comments CULTURE (BEAKER) (test No growth in 5 days code = 1095) HEMOGLOBIN [id number] 21:56:00 Test Item Value Reference Range Interpretation Comments HEMOGLOBIN A1C (BEAKER) (test code = 6.7 % 4.3-6.1 H 368) T4, [id number] 12:30:00 Test Item Value Reference Range Interpretation Comments FREE T4 (BEAKER) (test code = 655) 0.74 ng/dL 0.70-1.48 TSH/FREE T4 IF [id number] 05:46:00 Test Item Value Reference Range Interpretation Comments THYROID STIMULATING HORMONE 5.17 uIU/mL 0.35-4.94 H (BEAKER) (test code = 772) [id number] 05:37:00 Test Item Value Reference Range Interpretation Comments FERRITIN (BEAKER) (test code = 361) 79 ng/mL 5-275 Effective 08/29/2014: Reference Range ChangeNew: Male 5-275 Previous: Male 22- 322 Female 5-275 Female 78-630Y-SBAD NATRIURETIC FACTOR (BNP)2017-04-17 05:22:00 Test Item Value [...] % 20-55 (test code = 2590) LIPID [id number] 05:12:00 Test Item Value Reference Range Interpretation [...] 160-189 Very High >=190URINALYSIS W/ REFLEX URINE [id number] 00:32:00 Test Item Value Reference Range Interpretation [...] 1574) Rare SOURCE(BEAKER) (test code = 2795) [id number] 22:20:00 Test Item Value Reference Range Interpretation [...] is 2.5-3.5 for patients with mechanical heart valves.[id number] 22:18:00 Test Item Value Reference Range Interpretation Comments MAGNESIUM (BEAKER) (test code = 1.7 mg/dL 1.6-2.6 627) BASIC METABOLIC [id number] 22:18:00 Test Item Value Reference Range Interpretation [...] APPLICABLE FOR DIALYSIS PATIEN TS. HEPATIC FUNCTION [id number] 22:18:00 Test Item Value Reference Range Interpretation [...] 6-55 347) CBC W/PLT COUNT & AUTO [id number] 22:12:00 Test Item Value Reference Range Interpretation [...]
[2022-12-04] MEDS ORDERED: METHYLPREDNISOLONE 125 MG INJ ONE (03:35)
[2022-12-04] MEDS ORDERED: FAMOTIDINE 20 MG/2 ML VIAL IV ONE (03:35)
[2022-12-04] MEDS ORDERED: NA CHLORIDE 0.9% 1,000 ML ONE ×3 (03:36→07:15)
[2022-12-04 04:05] LABS: Hematocrit 40.9 % (39.6-49.0); Lymphocytes % 17.4 % (15.3-44.8); MCV 91.3 fL (80-100); MPV 9.1 fL (7.6-11.3); RBC Red Blood Cell Count 4.48 M/uL (4.33-5.43)
[2022-12-04 04:18] LABS: Albumin 3.6 g/dL (3.4-5.0); Bilirubin Total 0.9 mg/dL (0.2-1.0); Potassium 3.3 mmol/L (3.5-5.1); Protein, Total 6.9 g/dL (6.4-8.2)
[2022-12-04 04:42] LABS: SARS-COV-2 RT PCR NEGATIVE (NEGATIVE)
--- NOTE | 2022-12-04 04:48 | EDPHYS ---
Physician Documentation [facility] Name: Ney Marquez Age: 57 yrs Sex: Male : 1965 Arrival Date: 12/04/2022 Time: 03:24 Bed 3 Private MD: ED Physician Rudy Marquis HPI: 12/04 03:50 This 57 yrs old Unknown Male presents to ER via EMS with complaints of rash, sob. rn 03:50 The patient presents with itching, rash, redness of skin, shortness of breath. Onset: rn The symptoms/episode began/occurred just prior to arrival. Associated signs and symptoms: Pertinent positives: rash, shortness of breath, Pertinent negatives: abdominal pain, fever, Syncope vomiting. Possible causes: The patient has no known obvious cause for the symptoms. At home the patient or guardian has treated the symptoms with nothing. Severity of symptoms: At their worst the symptoms were moderate in the emergency department the symptoms have improved. The patient has experienced similar episodes in the past. The patient has not recently seen a physician. Pt reports woke up with rash all over, itching, sob, called 911, EMS gave epinephrine and benadryl. No steroids given. Pt reports has happened a few times before, unaware of trigger or cause, no new medication. . Historical: - Allergies: 03:40 Aleve; kd3 - PMHx: 03:40 Atrial Fib; Kidney stones; Hypertension; swelling of legs; kd3 - Immunization history:: Adult Immunizations up to date. - Social history:: Smoking status: Patient denies any tobacco usage or history of. - Family history:: not pertinent. - Hospitalizations: : No recent hospitalization is reported. ROS: 03:50 Constitutional: Negative for fever, chills, and weight loss, Eyes: Negative for injury, rn pain, redness, and discharge, Neck: Negative for injury, pain, and swelling, Cardiovascular: Negative for chest pain, palpitations, and edema, Respiratory: + sob Abdomen/GI: Negative for abdominal pain, nausea, vomiting, diarrhea, and constipation, MS/Extremity: Negative for injury and deformity, Skin: + rash and itching Neuro: Negative for headache, numbness, tingling, and seizure. Exam: 03:50 Constitutional: Overweight male, somnolent Head/Face: Normocephalic, atraumatic. rn Eyes: Left eye patch, right eye with mild periorbital swelling Cardiovascular: Bradycardic, regular. No pulse deficits. Respiratory: Mild tachypnea Abdomen/GI: soft, non-tender Skin: + diffuse urticaria with some excoriations, no bullae, no skin sloughing MS/ Extremity: Pulses equal, no cyanosis. Neuro: Awake and alert, GCS 15 05:00 ECG was reviewed by the Attending Physician. rn Vital Signs: 03:37 BP 94 / 64; Pulse 58; Resp 19; Temp 97.6(O); Pulse Ox 95% on R/A; Weight 114.31 kg; kd3 Height 5 ft. 10 in. (177.80 cm); Pain 0/10; 05:15 BP 91 / 54; Pulse 94; Resp 18; Pulse Ox 96% on R/A; tw5 03:37 Body Mass Index 36.16 (114.31 kg, 177.80 cm) kd3 MDM: 03:24 Patient medically screened. rn 04:44 Differential diagnosis: anaphylaxis, Mastocystosis urticaria. Data reviewed: vital rn signs, nurses notes, lab test result(s), EKG, and as a result, I will admit patient. Consideration of Admission/Observation Patient was admitted/placed on observation. Escalation of care including admission/observation considered. Management of patient was discussed with the following: Hospitalist: Case and management discussed with hospitalist. I considered the following discharge prescriptions or medication management in the emergency department Medications were administered in the Emergency Department. See MAR. Counseling: I had a detailed discussion with the patient and/or guardian regarding: the historical points, exam findings, and any diagnostic results supporting the discharge/admit diagnosis, lab results, radiology results, the need for further work-up and treatment in the hospital. Response to treatment: the patient's symptoms have markedly improved after treatment, and as a result, I will admit patient. ED course: Pt with likely anaphylaxis, still with rash, breathing improved, but was requiring oxygen and still reports "chest tightness". Will admit to hospitalist service for further monitoring. This is patient's 2nd or 3rd episode of urticaria. . 05:01 Independent interpretation of the following test(s) in the Emergency Department EKG: rn See my EKG interpretation above. 12/04 03:25 Order name: CBC with Diff rn 12/04 03:25 Order name: Urine Microscopic Only rn 12/04 03:25 Order name: SARS RAPID rn 12/04 03:25 Order name: CMP rn 12/04 04:09 Order name: CBC with Automated Diff; Complete Time: 04:10 EDMS 12/04 04:18 Order name: Comprehensive Metabolic Panel; Complete Time: 04:44 EDMS 12/04 03:25 Order name: IV Start; Complete Time: 03:37 rn 12/04 03:44 Order name: EKG; Complete Time: 03:45 tw5 12/04 04:42 Order name: COVID-19/FLU A+B; Complete Time: 04:44 EDMS 12/04 11:24 Order name: Urine Dipstick-Ancillary EDMS 12/04 03:25 Order name: Urine Dipstick-Ancillary (obtain specimen); Complete Time: 11:24 rn 12/04 03:25 Order name: Cardiac monitoring; Complete Time: 03:37 rn 12/04 03:25 Order name: O2 Sat Monitoring; Complete Time: 03:37 rn 12/04 03:44 Order name: EKG - Nurse/Tech; Complete Time: 03:59 tw5 EC:00 Rate is 57 beats/min. Rhythm is regular. QRS [place] is Normal. VT interval is normal. QRS rn interval is normal. QT interval is normal. No Q waves. T waves are Normal. No ST changes noted. Clinical impression: Sinus bradycardia. Interpreted by me. Reviewed by me. Administered Medications: 03:40 Drug: NS 0.9% 1000 ml Route: IV; Rate: 1000 ml; Site: left antecubital; tw5 05:16 Follow up: Response: No adverse reaction; IV Status: Completed infusion; IV Intake: tw5 1000ml 03:41 Drug: SOLU-Medrol (methylPrednisoLONE) 125 mg Route: IVP; Site: left antecubital; tw5 05:16 Follow up: Response: No adverse reaction tw5 03:41 Drug: Pepcid (famotidine) 20 mg Route: IVP; Site: left antecubital; tw5 05:16 Follow up: Response: No adverse reaction tw5 05:16 Drug: NS 0.9% 1000 ml Route: IV; Rate: 1 bolus; Site: left antecubital; tw5 07:31 Follow up: Response: No adverse reaction; IV Status: Completed infusion; IV Intake: kc6 1000ml Disposition Summary: 12/04/22 04:48 Hospitalization Ordered Hospitalization Status: Observation rn Provider: Tato Sierra rn Condition: Stable rn Problem: new rn Symptoms: have improved rn Bed/Room Type: Standard rn Location: Telemetry/MedSurg (observation)(12/04/22 11:39) em1 Room Assignment: 220(12/04/22 11:39) em1 Diagnosis - Urticaria, unspecified rn - Anaphylactic reaction, unspecified rn Forms: - Medication Reconciliation Form rn - 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 Total time: 40 rn minutes Signatures: Dispatcher [employer] EDMS Rudy Marquis MD MD rn Martinez, Eric em1 Julissa Dewey RN RN Yee Turner tw5 Berna Haas RN RN kd3 Daly Batres RN kc6 Corrections: (The following items were deleted from the chart) 04:48 04:48 Anaphylactic shock, unspecified, initial encounter rn rn 05:54 04:48 Telemetry/MedSurg (observation) rn cg 05:54 04:48 rn cg 11:39 05:54 [facility] ER HOLD cg em1 11:39 05:54 ERHOLD- cg em1
--- NOTE | 2022-12-04 04:48 | ER ---
Nurse's Notes [facility] Name: Ney Marquez Age: 57 yrs Sex: Male : 1965 Arrival Date: 12/04/2022 Time: 03:24 Bed 3 Private MD: Diagnosis: Urticaria, unspecified;Anaphylactic reaction, unspecified Presentation: 12/04 03:37 Chief complaint: EMS states: [place] was called out for pt who woke up feeling kd3 burning. on arrival pt had hives and was in the 80's on room air. pt was given 0.3 mg of epi on arrival. [facility] arrived on the scene and administered 50 of Benadryl and NS. pt is breathing better but still has diffuse rash on his body. Coronavirus screen: Vaccine status: Patient reports receiving the 2nd dose of the covid vaccine. Ebola Screen: No symptoms or risks identified at this time. Initial Sepsis Screen: Does the patient meet any 2 criteria? No. Patient's initial sepsis screen is negative. Does the patient have a suspected source of infection? No. Patient's initial sepsis screen is negative. Risk Assessment: Do you want to hurt yourself or someone else? Patient reports no desire to harm self or others. Onset of symptoms was December 04, 2022. 03:37 Method Of Arrival: EMS: [facility] kd3 03:37 Acuity: ANUJA 3 kd3 Triage Assessment: 03:40 General: Appears uncomfortable, Behavior is calm, cooperative. Pain: Denies pain. kd3 Historical: - Allergies: 03:40 Aleve; kd3 - PMHx: 03:40 Atrial Fib; Kidney stones; Hypertension; swelling of legs; kd3 - Immunization history:: Adult Immunizations up to date. - Social history:: Smoking status: Patient denies any tobacco usage or history of. - Family history:: not pertinent. - Hospitalizations: : No recent hospitalization is reported. Screenin:41 [facility] ED Fall Risk Assessment (Adult) History of falling in the last 3 months, tw5 including since admission. Abuse screen: Denies threats or abuse. Denies injuries from another. Nutritional screening: No deficits noted. Tuberculosis screening: No symptoms or risk factors identified. Assessment: 03:41 General: Reports "I am feeling a little better.". General: Reports "My jaw is tw5 tightening up and it my chest feels like I have elephants sitting on it.". Pain: Pain currently is 8 out of 10 on a pain scale. Neuro: Level of Consciousness is awake, alert, obeys commands, Oriented to person, place, time, situation. Respiratory: Airway is patent Trachea midline Respiratory effort is even, unlabored. Derm: Rash noted that is red, raised. 05:15 Reassessment: Patient states feeling better. Patient states symptoms have improved. tw5 07:00 Reassessment: please see [facility] for further charting. kc6 Vital Signs: 03:37 BP 94 / 64; Pulse 58; Resp 19; Temp 97.6(O); Pulse Ox 95% on R/A; Weight 114.31 kg; kd3 Height 5 ft. 10 in. (177.80 cm); Pain 0/10; 05:15 BP 91 / 54; Pulse 94; Resp 18; Pulse Ox 96% on R/A; tw5 03:37 Body Mass Index 36.16 (114.31 kg, 177.80 cm) 3 ED Course: 03:24 Patient arrived in ED. rn 03:24 Rudy Marquis MD is Attending Physician. rn 03:35 Yee Monroe is Primary Nurse. tw5 03:39 CBC with Diff Sent. tw5 03:39 SARS RAPID Sent. tw5 03:39 CMP Sent. tw5 03:40 Triage completed. kd3 03:40 Arm band placed on right wrist. kd3 03:41 Initial lab(s) drawn, by ED staff, sent to lab. Maintain EMS IV. Dressing intact. Good tw5 blood return noted. Site clean \\T\\ dry. Gauge \\T\\ site: 18 LAC. 03:41 Patient has correct armband on for positive identification. Bed in low position. Call tw5 light in reach. Side rails up X 1. Adult w/ patient. Client placed on continuous cardiac and pulse oximetry monitoring. NIBP monitoring applied. Door closed. Noise minimized. Lights dimmed. 04:47 Tato Sierra MD is Hospitalizing Provider. rn 07:32 No provider procedures requiring assistance completed. Patient admitted, IV remains in kc6 place. 11:24 Urine Microscopic Only Sent. kc6 Administered Medications: 03:40 Drug: NS 0.9% 1000 ml Route: IV; Rate: 1000 ml; Site: left antecubital; 05:16 Follow up: Response: No adverse reaction; IV Status: Completed infusion; IV Intake: tw5 1000ml 03:41 Drug: SOLU-Medrol (methylPrednisoLONE) 125 mg Route: IVP; Site: left antecubital; 05:16 Follow up: Response: No adverse reaction 03:41 Drug: Pepcid (famotidine) 20 mg Route: IVP; Site: left antecubital; 05:16 Follow up: Response: No adverse reaction 05:16 Drug: NS 0.9% 1000 ml Route: IV; Rate: 1 bolus; Site: left antecubital; 07:31 Follow up: Response: No adverse reaction; IV Status: Completed infusion; IV Intake: kc6 1000ml Medication: 03:41 VIS not applicable for this client. tw Intake: 05:16 IV: 1000ml; Total: 1000ml. 07:31 IV: 1000ml; Total: 2000ml. kc6 Outcome: 04:48 Decision to Hospitalize by Provider. rn 07:32 Admitted to ER Hold. Please see [facility] for further documentation. kc6 07:32 Condition: stable 07:32 Instructed on the need for admit. 12:03 Patient left the ED. kc6 Signatures: Rudy Marquis MD MD rn Wood, Tiffany tw5 Berna Haas RN RN kd3 Daly Batres RN RN kc6
--- NOTE | 2022-12-04 05:14 | P.HP ---
Certification for Inpatient Patient admitted to: Observation With expected LOS: <2 Midnights Patient will require the following post-hospital care: None Practitioner: I am a practitioner with admitting privileges, knowledge of patient current condition, hospital course, and medical plan of care. Services: Services provided to patient in accordance with Admission requirements found in Title 42 Section 412.3 of the Code of Federal Regulations Patient History Date of Service: 12/04/22 Primary Care Provider: Brian Reason for admission: Anaphylaxis History of Present Illness: Patient is a 57 year old male with past medical history of hypertension, atrial fibrillation, kidney stones, sleep apnea who [facility] to [facility] EMS with concerns for anaphylactic reaction. Patient states he suddenly woke up in the middle of the night with breathing difficulty and rash. EMS noted him to be saturating 80% on room air and administered 50 mg IV benadryl and 0.3 mg epi. BP has been lower, 90s/50s. Labs and EKG without any significant abnormalities. Mother later noted that patient took a new sleep aid for the first time this evening, which was 50 mg PO benadryl. ED provider wishes to admit patient for observation. Allergies naproxen [From Aleve] Allergy (Verified 02/04/16 16:12) Anaphylaxis Home medications list reviewed: Yes Home Medications: Gabapentin 300 mg PO TIDP PRN 10/20/20 Tamsulosin [Flomax*] 0.4 mg PO DAILY 10/20/20 Amox/Clavulanate [Augmentin 500-125 mg Tab] 500 mg PO BID #14 tab 10/21/20 Carvedilol [Coreg] 3.125 mg PO BID #60 tablet 10/21/20 Lactobacillus Acidophilus [Acidophilus Lactobacilli] 1 each PO TID #21 capsule 10/21/20 - Past Medical/Surgical History Diabetic: Yes -: Diabetes mellitus type 2 -: Hypertension -: Kidney stones -: Sleep apnea -: Atrial Fibrillation -: Nephrostomy placement -: Kidney stent -: 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 Psychosocial/ Personal History: 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 - Social History Smoking Status: Never smoker Alcohol use: Yes CD- Drugs: No Caffeine use: Yes Place of Residence: Home Review of Systems Respiratory: Shortness of Breath Cardiovascular: Chest Pain Integumentary: Rash Physical Examination - Vital Signs Temperature: 97.6 F Blood Pressure: 94/64 Pulse: 58 Respirations: 19 Pulse Ox (%): 95 - Physical Exam General: Alert, In no apparent distress HEENT: Atraumatic, EOMI, Sclerae nonicteric Neck: Supple, 2+ carotid pulse no bruit, No LAD, Without JVD or thyroid abnormal ity Respiratory: Clear to auscultation bilaterally, Normal air movement Cardiovascular: Regular rate/rhythm, Normal S1 S2 Gastrointestinal: Normal bowel sounds, No tenderness Musculoskeletal: No tenderness Integumentary: Rash(es) (diffuse utricaria) Neurological: Normal speech, Normal affect - Studies Laboratory Data (last 24 hrs) 12/04/22 03:33: Sodium 138, Potassium 3.3 L, BUN 23 H, Creatinine 1.17, Glucose 136 H, Total Bilirubin 0.9, AST 20, ALT 33, Alkaline Phosphatase 75 12/04/22 03:33: WBC 11.30 H, Hgb 13.7, Hct 40.9, Plt Count 207 Assessment and Plan - Problems (Diagnosis) (1) Anaphylaxis Current Visit: Yes Status: Acute Qualifiers: Encounter type: initial encounter Qualified Code(s): T78.2XXA - Anaphylactic shock, unspecified, initial encounter (2) Hypertension Current Visit: Yes Status: Chronic Qualifiers: Hypertension type: primary hypertension Qualified Code(s): I10 - Essential (primary) hypertension (3) Type 2 diabetes mellitus Current Visit: Yes Status: Chronic Qualifiers: Diabetes mellitus residential insulin use: without residential use Diabetes mellitus complication status: with hyperglycemia Qualified Code(s): E11.65 - Type 2 diabetes mellitus with hyperglycemia (4) Atrial fibrillation Current Visit: Yes Status: Chronic Qualifiers: Atrial fibrillation type: paroxysmal Qualified Code(s): I48.0 - Paroxysmal atrial fibrillation - Plan Patient is admitted for observation following anaphylactic reaction. Unclear if reaction is secondary to benadryl patient took before bed. He has had reactions like this in the past to aleve and another time with an unknown cause. Patient is planning to follow up with allergy outpatient. For now we will continue to monitor patient and likely repeat lab work. Continue IV fluids. Monitor on telemetry. Reconcile and continue home medications. Monitor and replete electrolytes per protocol. Full code. Discharge Plan: Home Plan to discharge in: 24 Hours - Advance Directives Does patient have a Living Will: No Does patient have a Durable POA for Healthcare: No - Code Status/Comfort Care Code Status Assessed: Yes Code Status: Full Code Physician Review: Patient Assessed, Agree with Above Assessment and Plan Critical Care: No Time Spent Managing Pts Care (In Minutes): 50
[2022-12-04] MEDS ORDERED: ONDANSETRON 4 MG/2 ML VIAL IV PRN (06:45)
[2022-12-04] MEDS ORDERED: ALBUTEROL 2.5 MG/3 ML NEB SOL NEB PRN (06:45)
[2022-12-04] MEDS ORDERED: IPRATROPIUM BROM 0.5MG/2.5ML NEB PRN (06:45)
[2022-12-04] MEDS: NA CHLORIDE 0.9% 1,000 ML IV SCH ×2 (06:45→21:17)
[2022-12-04] MEDS ORDERED: ACETAMINOPHEN 500 MG TAB PO PRN (06:45)
[2022-12-04 07:24] VITALS: BMI 35.9
[2022-12-04] MEDS ORDERED: ENOXAPARIN 40 MG/0.4 ML SQ ONE (08:41)
[2022-12-04] MEDS: ENOXAPARIN 40 MG/0.4 ML SQ SCH (08:44)
[2022-12-04 11:24] LABS: Urine Blood Negative (Negative); Urine Glucose Negative (Negative); Urine Protein Negative (Negative)
--- NOTE | 2022-12-04 16:29 | EKG ---
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
[2022-12-04 21:09] VITALS: O2SAT 95
[2022-12-05 04:12] LABS: Absolute Lymphocytes (CBC) 1.5 K/uL (0.7-4.9); Hematocrit 34.1 % (39.6-49.0); Lymphocytes % 12.5 % (15.3-44.8); MCV 91.7 fL (80-100); MPV 9.4 fL (7.6-11.3); RBC Red Blood Cell Count 3.71 M/uL (4.33-5.43)
[2022-12-05 04:23] LABS: Magnesium 1.8 mg/dL (1.6-2.4); Phosphorus 3.1 mg/dL (2.5-4.9); Potassium 3.6 mmol/L (3.5-5.1)
[2022-12-05] MEDS ORDERED: MAGNESIUM SULFATE 1 gm IVPB 1 GM/100 ML BAG IV ONE (06:03)
[2022-12-05] MEDS: ENOXAPARIN 40 MG/0.4 ML SQ SCH (08:46)
[2022-12-05] MEDS: NA CHLORIDE 0.9% 1,000 ML IV SCH (08:47)
[2022-12-05 08:51] VITALS: BP 114/65; TEMP 97.5
[2022-12-05] MEDS ORDERED: POTASSIUM CL SA 10 MEQ TAB PO ONE (09:00)
== END 2022-12-05 10:30 | disposition home or self-care (01) ==
LOC: ER 03:21 → ERHOLD 05:10 → 2ND 11:58
PROVIDERS: ADMIT Hospitalist; ATTEND Hospitalist
DX: T78.2XXA Anaphylactic shock, unspecified, initial encounter (principal); I10 Essential (primary) hypertension; E11.9 Type 2 diabetes mellitus without complications; L50.9 Urticaria, unspecified; N20.0 Calculus of kidney; G47.30 Sleep apnea, unspecified; I48.0 Paroxysmal atrial fibrillation; Z20.822 Contact with and (suspected) exposure to COVID-19
CPT/HCPCS: 96361; 93005; 85025 ×2; 80048; 36415 ×2; 83735; 84100; 80061; 81003; 80053; 0240U; 94760 ×3; 96375; 96374; 99285; J1650 ×2; J3475; J7030 ×5; J2930; G0378

== ENCOUNTER 2023-04-21 21:28 | Observation (INO) | payer OTHER ==
--- OUTSIDE RECORDS SUMMARY | 2023-04-21 21:33 | XMS REPORT | Continuity of Care Document ---
:1965 Author Organization [facility] t Address [address] [place] [address] Care Team Providers Name Role Phone Baldev Olmos [facility] Care Physician [phone] Romero Torres Attending Clinician Unavailable Ladarius Shell Attending Clinician Unavailable Matilde Valencia Attending Clinician Unavailable Nurse, Francisca Pob Immunization Attending Clinician Unavailable Godfrey Cardenas DO Attending Clinician GODFREY CARDENAS Attending Clinician Unavailable MICAH BOSWELL Attending Clinician Unavailable MICAH BOSWELL Admitting Clinician Unavailable Payers Payer Name Policy Type Policy Number Effective Date Expiration Date S ource [facility] [id number] Common Sp yecenia ing Medicare - [facility] C1 [id number] Common Sp yecenia ing Medicare [facility] Problems Condition Condition Condition Status Onset Resolution Last Treating Co mments Source Name Details Category Date Date Treatment Clinician Date Left Left Disease Active 2017-10 Univers ureteral ureteral 10-16 ity of stone stone 00:00: [place] 00 [facility] Complicate Complicate Disease Active C HI St d UTI d UTI 04-16 kes (urinary (urinary 00:00: Medica l tract tract 00 [place] infection) infection) Obstructio Obstructio Disease Active C [facility] n of left n of left 04-16 Mes[place] s ureteropel ureteropel 00:00: Dc dical maribel maribel 00 [place] junction junction due to due to stone stone Obstructiv Obstructiv Disease Active C HI [facility] e uropathy e uropathy 03-22 Carmen kes 00:00: Medical [address] [place] [address] Renal Renal Disease Active [facility] Medical [address] [place] [address] Hydronephr Hydronephr Disease Active [facility] osis osis 02-05 [facility] 00:[facility]: Medical [address] [place] [address] HTN HTN Disease Active [facility] (hypertens (hypertens 02-05 Carmen kes ion) ion) 00:00: [address] SANTOS (acute SANTOS (acute Disease Active [facility] kidney kidney 02-05 [facility] injury) injury) 00:00: Medical 00 [place] Septic Septic Disease Active [facility] shock shock 02-04 [facility] Center Obesity Mildly Problem Common obese [facility] Gammopathy Gammopathy Problem C ommon [facility] Anemia of Anemia Problem Common chronic associated Spiri t renal with - [facility]I failure chronic renal [facility] failure Medical [place] Fatty Fatty Problem Common liver liver [facility] Anemia in Anemia in Problem Com mon chronic chronic [facility] kidney kidney - CHI disease disease [facility] [id number] Diabetic Problem Comm on polyneurop Spirit athy - [facility]I associated St with type [facility] 2 diabetes Medica l mellitus Center Edema Edema Problem Common [facility] Abnormal Abnormal Problem Commo n urine urine [facility] Hypertrigl Hypertrigl Problem C ommon yceridemia yceridemia Sp yecenia [facility] Hypokalemi Hypokalemi Problem C jacinda a a Spirit - [facility] Hyperglyce Hyperglyce Problem C ommon jacinto jacinto Spirit - [facility] Eosinophil Eosinophil Problem C jacinda ia ia [facility] - [facility] [id number] Peripheral Problem Co mmon edema Spirit - [facility] [id number] Adult BMI Problem Com mon 35.0-35.9 Spirit kg/sq m - [facility] [id number] Pain in Problem Common right knee Spirit - [facility] [id number] Hypoxia Problem Commo n Spirit - [facility] [id number] Pain in Problem Comm on left knee Spirit [facility] [id number] Other Problem Common chronic Spirit pain - [facility] [id number] Elevated Problem Comm on serum Spirit creatinine - [facility] [id number] Hyperlipid Problem Com mon emia, Spirit unspecifie - CHI d hyperlipid [facility] emVon [facility] [id number] Dependence Problem Co mmon on CPAP Spirit ventilatio - CHI n [facility] [id number] Body mass Problem Com mon index Spirit (BMI) of - CHI 40.0-44.9 St in adult [facility] [id number] Chronic Problem Commo n kidney Spirit disease, - CHI unspecifie St CKD [facility] [id number] Obstructiv Problem Com mon e sleep Spirit apnea - [facility] (adult) (pediatric [facility] ) [facility] [id number] Morbid Problem Common obesity Spirit [facility] [id number] On Problem Commo n 07 supplement Spirit al oxygen - CHI therapy [facility] [id number] Type 2 [place] [id number] diabetes Spirit mellitus - CHI with hyperglyce [facility] [id number] Type 2 Problem Common diabetes Spirit mellitus - [facility]I with diabetic [facility] nephropath Medica [facility] [id number] Erectile Problem Comm on dysfunctio Spirit n, - CHI unspecifie St erectile 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 Alcohol Frequency Medical [facility] History [facility]OH [facility] Alcohol Std Drinks Medica l Center History SDOH [facility] Alcohol Binge Medical Adair ter History of Tobacco Common Spirit - Use [facility] Alcohol intake 2017-04-22 2017-04-22 Current drinker of [facility] 00:[facility]00 00:00:00 alcohol (finding) Medical Center Alcohol Comment 2017-04-17 2017-04-[address] [facility] 00:[facility] Center Tobacco use and 2016-03-23 2016-03-23 Smokeless tobacco [facility] exposure 00:00:00 00:00:00 non-user [facility] Center Sex Assigned At [address] Carmen kes 00:00:00 00:00:00 Medical Center Smoking Status Start Date Stop Date Source Unknown if ever smoked [facility] Never Smoker Common [facility] Medications Ordered Filled Start Stop Current Ordering Indication Dosage Frequency Signature Comments Components Source Medication Medication Date Date Medication? Clinician (SIG) Name Name Gabapentin Gabapentin 2021-10 No 1{capsu TID Gabapentin 300 MG 300 MG 10-19 le} 300 MG 00:00: 00 Gabapentin Gabapentin 2021-10 No 1{capsu TID Gabapentin 300 MG 300 MG 08 le} 300 MG 00:00: 00 Fluticasone Fluticasone [...] mouth [facility] MG tablet 19:29: daily. Medica 58 Center doxycycline 2017-0 Yes 100mg Q.5D [...] Center daily with breakfast and dinner. lisinopril 2017-0 Yes hypertensio 20mg QD Take [address] (PRINIVIL,Z 7-11 n by mouth Luke s ESTRIL) 20 19:29: daily. Medic al MG tablet 58 Center furosemide 2016-0 Yes 20mg QD Take [address] (LASIX) 20 7-11 by mouth [facility] MG tablet 19:29: daily. Medica 58 Center doxycycline 2017-0 Yes 100mg Q.5D [...] Medic al MG tablet 58 Center furosemide 20170 Yes 20mg QD Take [address] (LASIX) 20 7-11 by mouth [facility] MG tablet 19:29: daily. Medica 58 Center doxycycline 2017-0 Yes 100mg Q.5D [...] Center daily with breakfast and dinner. lisinopril 2017-0 Yes hypertensio 20mg QD Take [address] (PRINIVIL,Z 7-11 n by mouth Luke s ESTRIL) 20 19:29: daily. Medic al MG tablet 58 Center furosemide 2017-0 Yes 20mg QD Take 20 mg C [...] Center daily with breakfast and dinner. lisinopril 2017-0 Yes hypertensio 20mg QD Take [address] (PRINIVIL,Z 7-11 n by mouth Luke s ESTRIL) 20 19:29: daily. Medic al MG tablet 58 Center furosemide 0 Yes 20mg QD Take [address] (LASIX) 20 7-11 by mouth [facility] MG tablet 19:29: daily. Medica [facility] Center doxycycline 2017-0 Yes 100mg Q.5D Take [...] Lisinopril Lisinopril Yes Matilde 1 tablet Common [facility] Coreg Coreg Yes Matilde 1 tablet [facility] Lisinopril Lisinopril No 1{table QD Lisinopril 20 [...] No 1{capsu QD Flomax 0.4 MG MG 05-08 le} MG 00:00 :00 Immunizations Ordered Filled Immunization Date Status Comments Sour e Immunization Name Name SARS-COV-2 COVID-19 2021-10-18 Completed Unive rsity of MODERNA BOOSTER 00:00:00 [facility] [place] [facility] VACCINE Branch SARS-COV-2 COVID-19 2020-12-15 Completed Unive rsity of MODERNA VACCINE 00:00:00 [facility] [place] [facility] Branch SARS-COV-2 COVID-19 2020-11-17 Completed Unive rsity of MODERNA VACCINE 00:00:00 [facility] Vital Signs Vital Name Observation Time Observation Value Comments Source height 2022-09-15 16:30:00 70.75 [in_i] [facility] weight 2022-09-15 16:30:00 240 [lb_av] [facility] temperature 2022-09-15 16:30:00 97 [degF] [facility] bmi 2022-09-15 16:30:00 33.71 kg/m2 [facility] blood pressure 2022-09-15 16:30:00 120 mm[Hg] Common [facility] - systolic [facility] blood pressure 2022-09-15 16:30:00 89 mm[Hg] Common Spirit - diastolic [facility] height 2022-05-08 15:50:00 70.75 [in_i] Common S [facility] weight 2022-05-08 15:50:00 249.5 [lb_av] Common [facility] temperature 2022-05-08 15:50:00 97.0 [degF] Common S pirit [facility] bmi 2022-05-08 15:50:00 35.04 kg/m2 [facility] oximetry 2022-05-08 15:50:00 96 % [facility] 2022-05-08 15:50:00 17 /min Comm on [facility] blood pressure 2022-05-08 15:50:00 101 mm[Hg] Common [facility] - systolic [facility] blood pressure 2022-05-08 15:50:00 57 mm[Hg] Common [facility] - diastolic [facility] height 2022-05-08 16:00:00 70.75 [in_i] Common S [facility] weight 2022-05-08 16:00:00 249.5 [lb_av] Common [facility] temperature 2022-05-08 16:00:00 97.0 [degF] Common [facility] bmi 2022-05-08 16:00:00 35.04 kg/m2 Common [facility] oximetry 2022-05-08 16:00:00 96 % Common S [facility] respiratory rate 2022-05-08 16:00:00 17 /min Comm on [facility] blood pressure 2022-05-08 16:00:00 101 mm[Hg] Common Spirit - systolic [facility] blood pressure 2022-05-08 16:00:00 57 mm[Hg] Common Spirit - diastolic [facility] height 2021-12-24 16:10:00 70.75 [in_i] Common [facility] weight 2021-12-24 16:10:00 265 [lb_av] Common S [facility] temperature 2021-12-24 16:10:00 98 [degF] [facility] bmi 2021-12-24 16:10:00 37.22 kg/m2 Common S [facility] blood pressure 2021-12-24 16:10:00 131 mm[Hg] Common [facility] - systolic [facility] blood pressure 2021-12-24 16:10:00 70 mm[Hg] [facility] diastolic [facility] height 2021-05-21 13:50:00 70.75 [in_i] [facility] weight 2021-05-21 13:50:00 266.4 [lb_av] [facility] temperature 2021-05-21 13:50:00 96.4 [degF] [facility] bmi 2021-05-21 13:50:00 37.41 kg/m2 [facility] oximetry 2021-05-21 13:50:00 96 % [facility] respiratory rate 2021-05-21 13:50:00 17 /min Comm on [facility] blood pressure 2021-05-21 13:50:00 135 mm[Hg] [facility] systolic [facility] blood pressure 2021-05-21 13:50:00 72 mm[Hg] [facility] diastolic [facility] Procedures Procedure Date / Time Performed Performing Clinician [facility] e SARS-COV-2 COVID-19 2021-10-18 22:10:15 Doctor Unassigned, No [facility] [place] VACCINE Name Medical Branch BOOSTER,0.25ML,IM (MODERNA) Plan of Care Planned Activity Planned Date Details Comments Source Future Scheduled 2023-03-27 [facility] Test 12:15:32 malignant neoplasm of colon (procedure) [code = 829422197] Future Scheduled 2023-03-27 [facility] Test 12:15:32 malignant neoplasm of colon (procedure) [code = 513273852] Future Scheduled 2023-03-27 [facility] Test 12:15:32 malignant neoplasm of colon (procedure) [code = 599616142] Future Scheduled 2023-03-27 COVID-19 VACCINE (#1) [facility] Test 12:15:32 [code = COVID-19 VACCINE (#1)] Future Scheduled 2023-03-27 [facility] Test 12:15:32 malignant neoplasm of colon (procedure) [code = 905335587] Future Scheduled 2023-03-27 [facility] Test 12:15:32 malignant neoplasm of colon (procedure) [code = 926103449] Future Scheduled 2023-03-27 SHINGLES VACCINES (1 [facility] Test 12:15:32 of 2) [code = SHINGLES VACCINES (1 of 2)] Future Scheduled 2023-03-27 INFLUENZA VACCINE [facility] Test 12:15:32 [code = INFLUENZA VACCINE] Future Scheduled 2023-01-19 COVID-19 VACCINE (#1) [facility] Test 21:17:09 [code = COVID-19 VACCINE (#1)] Future Scheduled 2023-01-19 COLONOSCOPY SCREENING [facility] Test 21:17:09 [code = COLONOSCOPY SCREENING] Future Scheduled 2023-01-19 SHINGLES VACCINES (1 [facility] Test 21:17:09 of 2) [code = SHINGLES VACCINES (1 of 2)] Future Scheduled 2023-01-19 INFLUENZA VACCINE [facility] Test 21:17:09 [code = INFLUENZA VACCINE] Future Scheduled 2022-11-06 COVID-19 VACCINE (#1) [facility] Test 03:42:01 [code = COVID-19 VACCINE (#1)] Future Scheduled 2022-11-06 COLONOSCOPY SCREENING [facility] Test 03:42:01 [code = COLONOSCOPY SCREENING] Future Scheduled 2022-11-06 SHINGLES VACCINES (1 [facility] Test 03:42:01 of 2) [code = SHINGLES VACCINES (1 of 2)] Future Scheduled 2022-11-06 INFLUENZA VACCINE [facility] Test 03:42:01 [code = INFLUENZA VACCINE] Future Scheduled 2022-11-06 COVID-19 VACCINE (#1) [facility] Test 03:42:01 [code = COVID-19 VACCINE (#1)] Future Scheduled 2022-11-06 COLONOSCOPY SCREENING [facility] Test 03:42:01 [code = COLONOSCOPY SCREENING] Future Scheduled 2022-11-06 SHINGLES VACCINES (1 Met [facility] Test 03:42:01 of 2) [code = SHINGLES VACCINES (1 of 2)] Future Scheduled 2022-11-06 INFLUENZA VACCINE Method [facility] Test 03:42:01 [code = INFLUENZA VACCINE] Future Scheduled 2022-06-12 COLONOSCOPY SCREENING [facility] [place] [facility] Test 07:25:43 [code = COLONOSCOPY SCREENING] Future Scheduled 2022-06-12 SHINGLES VACCINES (1 Met [facility] Test 07:25:43 of 2) [code = SHINGLES VACCINES (1 of 2)] Future Scheduled 2022-06-12 INFLUENZA VACCINE Method [facility] Test 07:25:43 [code = INFLUENZA VACCINE] Future Scheduled 2022-06-12 HEPATITIS B VACCINES Met [facility] Test 07:25:43 (1 of 3 - 3-dose series) [code = HEPATITIS B VACCINES (1 of 3 - 3-dose series)] Future Scheduled 2022-06-12 COVID-19 VACCINE (#1) [facility] Test 07:25:43 [code = COVID-19 VACCINE (#1)] Encounters Start End Encounter Admission Attending Care Care Encounter Source Date/Time Date/Time Type Type Clinicians Facility Department ID 2023-02-05 Outpatient Torres, [facility] [id number] Common 10:02:00 Romero [facility] 2022-09-22 Outpatient Torres, [facility] [id number] Common 11:02:00 Romero [facility] 2022-09-16 Outpatient Torres, [facility] [id number] Common 12:20:00 Romero [facility] 2022-09-11 Outpatient Torres, [facility] [id number] Common 14:00:01 Romero [facility] 2022-05-08 Outpatient Torres, [facility] [id number] Common 16:40:00 Romero [facility] 2021-11-15 Outpatient Torres, STLMLC STLMLC [id number] Common 11:33:01 Romero [facility] 2021-11-06 Outpatient Torres, STLMLC STLMLC [id number] Common 15:13:00 Romero [facility] 2021-11-06 Outpatient Torres, STLMLC STLMLC [id number] Common 14:07:49 Romero [facility] 2021-11-06 Outpatient Torres, STLMLC STLMLC [id number] Common 13:36:44 Romero [facility] 2021-11-06 Outpatient Torres, STLMLC STLMLC [id number] Common 13:36:17 Romero [facility] 2021-11-06 Outpatient Torres, STLMLC STLMLC [id number] Common 12:39:10 Romero [id number] [facility] 2021-11-06 Outpatient Torres, STLMLC STLC [id number] Common 12:38:07 Romero [id number] [facility] 2021-11-06 Outpatient Torres, STLMLC STLMLC [id number] Common 12:36:12 Romero 32654 [facility] 2021-11-06 Outpatient Torres, STLMLC STLMLC [id number] Common 12:26:31 Romero 29584 [facility] 2021-11-06 Outpatient Torres, STLMLC STLMLC [id number] Common 12:25:33 Romero 33951 [facility] 2021-11-06 Outpatient Torres, STLMLC STLMLC [id number] Common 12:19:33 Romero 75383 [facility] 2021-11-06 Outpatient Torres, STLMLC STLMLC [id number] Common 12:14:55 Romero 90350 [facility] 2021-11-06 Outpatient Ladarius Shell STLMLC STLC [id number] Common 12:14:45 [id number] [facility] 2021-11-06 Outpatient Shell, Kin STLMLC STLMLC [id number] Common 12:11:08 05174 [facility] 2021-11-06 Outpatient Ladarius Shell STLMLC STLMLC [id number] Common 12:10:25 [id number] [facility] 2021-11-06 Outpatient Ladarius Shell STLMLC STLMLC [id number] Common 12:04:50 34555 [facility] 2021-11-06 Outpatient Ladarius Shell STLMLC STLMLC [id number] Common 12:03:29 [id number] [facility] 2021-11-06 Outpatient Erik, STLMLC STLMLC [id number] Common 11:27:55 Matilde 84133 [facility] 2021-11-06 Outpatient Erik, STLMLC STLMLC [id number] Common 11:03:47 Matilde 78549 [facility] 2021-11-06 Outpatient Erik, STLMLC STLMLC [id number] Common 11:03:24 Matilde 33043 [facility] 2022-09-15 2022-09-15 OFFICE STLMLC STLMLC [id number] Co mmon 00:00:00 00:00:00 VISIT [facility] PT - CHI LEVEL 4 [facility] 2022-08-19 2022-08-19 (TEL) STLMLC STLMLC [id number] Co mmon 00:00:00 00:00:00 Spirit [facility] 2022-05-08 2022-05-08 OFFICE STLMLC STLMLC [id number] Co mmon 00:00:00 00:00:00 VISIT Spirit ESTAB PT - CHI LEVEL 4 [facility] 2022-05-08 2022-05-08 SUB ANNUAL STLMLC STLMLC [id number] Common 00:00:00 00:00:00 MCR [facility] WELLNESS - CHI VISIT [facility] 2022-02-07 2022-02-07 (TEL) STLMLC STLMLC [id number] Co mmon 00:00:00 00:00:00 [facility] 2021-12-24 2021-12-24 OFFICE STLMLC STLMLC [id number] Co mmon 00:00:00 00:00:00 VISIT Spirit ESTAB PT - CHI LEVEL 4 [facility] 2021-11-21 2021-11-21 (TEL) STLMLC STLMLC [id number] Co mmon 00:00:00 00:00:00 [facility] 2021-11-07 2021-11-07 (TEL) STLMLC STLMLC [id number] Co mmon 00:00:00 00:00:00 [facility] 2021-10-18 2021-10-18 Imm/Inj Nurse, Adc Pob Immunization [facility] [id number] Univers 16:00:00 16:00:26 Visit Godfrey Cardenas [id number] .10 [facility] [id number] Martin CARRIONESSAGUS [id number] Dc dic[address] 2021-10-18 2021-10-18 Outpatient Chris CARDENAS [facility] [id number] Univers 16:00:00 16:00:26 GODFREY [facility] 2021-07-16 2021-07-16 (TEL) STLMLC STLMLC [id number] Co mmon 00:00:00 00:00:00 [facility] 2021-05-21 2021-05-21 OFFICE STLMLC STLMLC [id number] Co mmon 00:00:00 00:00:00 VISIT Spirit ESTAB PT - CHI LEVEL 4 [facility] 2021-02-13 2021-02-13 Outpatient STLMLC STLMLC [id number] Common 00:00:00 00:00:00 [facility] 2021-01-21 2021-01-21 Outpatient STLMLC STLMLC [id number] Common 00:00:00 00:00:00 [facility] 2020-12-20 2020-12-20 Outpatient STLMLC STLMLC [id number] Common 00:00:00 00:00:00 [facility] 2020-12-15 2020-12-15 Outpatient [facility] [id number] Univers 14:10:00 14:10:00 ity [facility] 2020-11-17 2020-11-17 Outpatient [facility] [id number] Univers 14:10:00 14:10:00 [facility] 2020-11-08 2020-11-08 Outpatient STLMLC STLMLC [id number] Common 00:00:00 00:00:00 [facility] 2020-11-08 2020-11-08 Outpatient STLMLC STLMLC [id number] Common 00:00:00 00:00:00 [facility] 2020-10-22 2020-10-22 Outpatient STLMLC STLMLC [id number] Common 00:00:00 00:00:00 [facility] 2020-09-29 2020-09-29 Outpatient STLMLC STLMLC [id number] Common 00:00:00 00:00:00 [facility] 2020-09-17 2020-09-17 Outpatient STLMLC STLMLC [id number] Common 00:00:00 00:00:00 [facility] 2020-08-20 2020-08-20 Outpatient STLMLC STLMLC [id number] Common 00:00:00 00:00:00 [facility] 2020-02-17 2020-02-17 [id number] Common 10:33:00 10:33:00 [facility] [address] [facility] 2019-12-29 2019-12-29 [facility] [id number] Common 14:20:00 14:20:00 [facility] [address] [facility] 2019-11-09 2019-11-09 [facility] [id number] Common 08:45:00 08:45:00 [facility] [address] [facility] 2019-09-22 2019-09-22 [facility] [id number] Common 08:00:00 08:00:00 [facility] [address] [facility] 2019-09-14 2019-09-14 [facility] [id number] Common 15:33:00 15:33:[address] [facility] 2019-04-04 2019-04-04 Out[facility] [id number] Common 09:00:00 09:00:[address] [facility] 2019-03-25 2019-03-25 Out[facility] [id number] Common 14:39:00 14:39:[address] [facility] 2019-03-23 2019-03-23 Out[facility] [id number] Common 15:00:00 15:00:[address] [facility] 2018-12-11 2018-12-11 Out[facility] [id number] Common 11:48:00 11:48:[address] [facility] 2018-12-08 2018-12-08 Out[facility] [id number] Common 14:45:00 14:45:[address] [facility] 2018-11-30 2018-11-30 Out[facility] [id number] Common 16:46:00 16:46:[address] [facility] 2018-09-23 2018-09-23 Out[facility] [id number] Common 11:45:00 11:45:[address] [facility] 2018-04-26 2018-04-26 Outpatient [facility] [id number] Common 20:50:00 20:50:[address] [facility] 2018-04-21 2018-04-21 Outpatient [facility] [id number] Common 14:30:00 14:30:[address] [facility] 2018-03-26 2018-03-26 [facility] 14 [id number] Common 14:30:00 14:30:00 [facility] [address] [facility] 2018-01-19 2018-01-19 [facility] 13 [id number] Common 13:30:00 13:30:00 [facility] [address] [facility] Results Test Description Test Time Test Comments Results Result Comments Source BLOOD CULTURE 2017-04-22 00:00:00 Test Item Value Reference Range Interpretation Comme nts CULTURE (BEAKER) (test code = 1095) No growth in 5 days BLOOD [id number] 00:00:00 Test Item Value Reference Range Interpretation Comments CULTURE (BEAKER) (test No growth in 5 days code = 1095) HEMOGLOBIN [id number] 21:56:00 Test Item Value Reference Range Interpretation Comments HEMOGLOBIN A1C (BEAKER) (test code = 6.7 % 4.3-6.1 H 368) T4, [id number] 12:30:00 Test Item Value Reference Range Interpretation Comments FREE T4 (BEAKER) (test code = 655) 0.74 ng/dL 0.70-1.48 TSH/FREE T4 IF [id number] 05:46:00 Test Item Value Reference Range Interpretation Comments THYROID STIMULATING HORMONE 5.17 uIU/mL 0.35-4.94 H (BEAKER) (test code = 772) [id number] 05:37:00 Test Item Value Reference Range Interpretation Comments FERRITIN (BEAKER) (test code = 361) 79 ng/mL 5-275 Effective 08/29/2014: Reference Range ChangeNew: Male 5-275 Previous: Male 22- 322 Female 5-275 Female 66-458G-KAVF NATRIURETIC FACTOR (BNP)2017-04-17 05:22:00 Test Item Value [...] % 20-55 (test code = 2590) LIPID [id number] 05:12:00 Test Item Value Reference Range Interpretation [...] 160-189 Very High >=190URINALYSIS W/ REFLEX URINE [id number] 00:32:00 Test Item Value Reference Range Interpretation [...] 1574) Rare SOURCE(BEAKER) (test code = 2795) [id number] 22:20:00 Test Item Value Reference Range Interpretation [...] is 2.5-3.5 for patients with mechanical heart valves.[id number] 22:18:00 Test Item Value Reference Range Interpretation Comments MAGNESIUM (BEAKER) (test code = 1.7 mg/dL 1.6-2.6 627) BASIC METABOLIC [id number] 22:18:00 Test Item Value Reference Range Interpretation [...] APPLICABLE FOR DIALYSIS PATIEN TS. HEPATIC FUNCTION [id number] 22:18:00 Test Item Value Reference Range Interpretation [...] 6-55 347) CBC W/PLT COUNT & AUTO [id number] 22:12:00 Test Item Value Reference Range Interpretation [...]
[2023-04-21] MEDS ORDERED: ACETAMINOPHEN 500 MG TAB ONE (22:11)
[2023-04-21] MEDS ORDERED: ASPIRIN 81 MG CHEWABLE TABLET ONE (22:11)
[2023-04-21] MEDS ORDERED: NA CHLORIDE 0.9% 1,000 ML ONE (22:11)
[2023-04-21 22:31] LABS: Albumin 3.7 g/dL (3.4-5.0); Bilirubin Direct 0.1 mg/dL (0-0.2); Bilirubin Indirect, Calculated 0.4 mg/dL (0.2-0.8); Bilirubin Total 0.5 mg/dL (0.2-1.0); Magnesium 2.1 mg/dL (1.6-2.4); Potassium 3.5 mEq/L (3.5-5.1); Protein, Total 7.8 g/dL (6.4-8.2); Troponin High Sensitivity 5.3 pg/mL (<58.9)
--- NOTE | 2023-04-21 22:32 | RAD REPORT ---
EXAM DESCRIPTION: Susi Single View04/21/2023 10:15 pm CLINICAL HISTORY: CHEST PAIN COMPARISON: Chest Single View dated 05/09/2018; Abdomen 1 View (KUB) dated 02/28/2016; Chest Single Vi ew dated 02/04/2016 TECHNIQUE: Portable AP view of the chest. FINDINGS: The lungs are clear. Left basilar atelectasis. Poor penetration particularly at the left b ase limits evaluation. No pneumothorax or effusion. The cardiomediastinal contours are unremarkable. IMPRESSION: No acute cardiopulmonary process.
[2023-04-21 22:46] LABS: Absolute Lymphocytes (CBC) 2.3 K/uL (0.7-4.9); Hematocrit 40.6 % (39.6-49.0); MCV 92.1 fL (80-100); MPV 9.5 fL (7.6-11.3); RBC Red Blood Cell Count 4.41 M/uL (4.33-5.43)
[2023-04-21 23:07] LABS: Protime INR 1.01
[2023-04-22] MEDS ORDERED: CLOPIDOGREL 75 MG TABLET ONE (00:28)
[2023-04-22] MEDS ORDERED: FOLIC ACID 1 MG TABLET ONE ×2 (00:28→07:59)
--- NOTE | 2023-04-22 00:34 | EDPHYS ---
Physician Documentation [facility] Name: Ney Marquez Age: 57 yrs Sex: Male : 1965 Arrival Date: 04/21/2023 Time: 21:28 Bed 16 Private MD: ED Physician Yoni Packer HPI: 04/21 21:51 This 57 yrs old Unknown Male presents to ER via EMS with complaints of chest pain, sp4 numbness . 04/22 00:20 Very pleasant 57-year-old male with past medical history of hypertension, prior atrial sp4 fibrillation, kidney stones, sleep apnea and left eye enucleation, presents to the emergency room with periodic slurring of his speech for the past 2 days also chest pain associated with left arm numbness and tingling. Patient arrived with EMS. Patient denied any additional weakness, paralysis, vision loss, or other symptoms. Patient was admitted here last time on 12/05/2022 for anaphylactic reaction associated with dyspnea and the rash. Patient was treated with Benadryl, epinephrine, and admitted for management was discharged uneventfully next day. Patient's medications include gabapentin, tamsulosin, atorvastatin, carvedilol, furosemide, epinephrine, famotidine, prednisone, in particular patient takes atorvastatin 10 mg p.o. daily, carvedilol 25 mg p.o. at bedtime. And furosemide 20 mg daily. Historical: - Allergies: 04/21 21:43 Aleve; vc1 - Home Meds: 21:43 carvedilol oral [Active]; Lisinopril Oral [Active]; vc1 - PMHx: 21:43 Atrial Fib; Hypertension; Kidney stones; swelling of legs; missing left eye; vc1 - PSHx: 21:43 Left eye removed; vc1 - Immunization history:: Client reports receiving the 2nd dose of the Covid vaccine. - Social history:: Smoking status: Patient denies any tobacco usage or history of. - Family history:: not pertinent. ROS: 04/22 00:20 Constitutional: Negative for fever, chills, and weight loss, Eyes: Negative for injury, sp4 pain, redness, and discharge, ENT: Negative for injury, pain, and discharge, Neck: Negative for injury, pain, and swelling, Cardiovascular: Negative for palpitations, and edema, positive for midsternal chest pain associated with left arm tingling. Respiratory: Negative for shortness of breath, cough, wheezing, and pleuritic chest pain, Abdomen/GI: Negative for abdominal pain, nausea, vomiting, diarrhea, and constipation, Back: Negative for injury and pain, : Negative for injury, bleeding, discharge, and swelling, MS/Extremity: Negative for injury and deformity, Skin: Negative for injury, rash, and discoloration, Neuro: Negative for headache, weakness, numbness, and seizure, positive left arm tingling and episodes of slurred speech Psych: Negative for depression, anxiety, Allergy/Immunology: Negative for hives, rash, and allergies Endocrine: Negative for neck swelling, polydipsia, polyuria, polyphagia, and weight changes Hematologic/Lymphatic: Negative for swollen nodes, abnormal bleeding, and unusual bruising Exam: 00:20 Constitutional: This is a well developed, well nourished patient who is awake, alert, sp4 and in no acute distress. Head/Face: Normocephalic, atraumatic. Eyes: There is a left eye enucleation , there is normal exam of the right eye. With lids and lashes normal. Conjunctiva and sclera are not injected. Cornea within normal limits. Periorbital areas with no swelling, redness, or edema. ENT: Nares patent. No nasal discharge, no septal abnormalities noted. Tympanic membranes are normal and external auditory canals are clear. Oropharynx with no redness, swelling, or masses, exudates, or evidence of obstruction, uvula midline. Mucous membranes moist. Neck: Trachea midline, no thyromegaly or masses palpated, and no cervical lymphadenopathy. Supple, full range of motion without nuchal rigidity, or vertebral point tenderness. Chest/axilla: Normal chest wall appearance and motion. Nontender with no deformity. No lesions are appreciated. Cardiovascular: Regular rate and rhythm with a normal S1 and S2. No gallops, murmurs, or rubs. Normal PMI, no JVD. No pulse deficits. Respiratory: Lungs have equal breath sounds bilaterally, clear to auscultation and percussion. No rales, rhonchi or wheezes noted. No increased work of breathing, no retractions or nasal flaring. Abdomen/GI: Soft, non-tender, with normal bowel sounds. No distension or tympany. No guarding or rebound. No evidence of tenderness throughout. Back: No spinal tenderness. No costovertebral tenderness. Male : Normal genitalia with no discharge or lesions. Skin: Warm, dry with normal turgor. Normal color with no rashes, no lesions, and no evidence of cellulitis. MS/ Extremity: Pulses equal, no cyanosis. Neurovascular intact. Full, normal range of motion. Neuro: Awake and alert, GCS 15, oriented to person, place, time, and situation. Cranial nerves II-XII grossly intact. Motor strength 5/5 in all extremities. Sensory grossly intact. Psych: Awake, alert, with orientation to person, place and time. Behavior, mood, and affect are within normal limits 00:20 ECG was reviewed by the Attending Physician. Normal sinus rhythm at the rate of 64. EKG time 2140, no ST elevation or depression, no ectopy. Overall normal EKG Vital Signs: 04/21 21:41 Pulse 71; Resp 18; Temp 97.7; Pulse Ox 95% ; Weight 113.4 kg; Height 5 ft. 10 in. ; vc1 Pain 4/10; 21:52 BP 135 / 86; vc1 23:45 BP 136 / 100; Pulse 60; Resp 16; Pulse Ox 98% on R/A; ll3 04/22 01:20 BP 142 / 94; Pulse 57; Resp 16; Pulse Ox 96% on R/A; ll3 04/21 21:41 Body Mass Index 35.87 (113.40 kg, 177.8 cm) vc1 04/21 21:41 Pain Scale: Adult vc1 [place] Coma Score: 00:27 Eye Response: spontaneous(4). Motor Response: obeys commands(6). Verbal Response: sp4 oriented(5). Total: 15. MDM: 04/21 22:40 Patient medically screened. sp4 04/22 00:11 ED course: EXAM: Head Brain Wo Cont (accession [id number]), Neck Angio (accession sp4 [id number]), Head angio (accession [id number]) CLINICAL INDICATION: 57-year-old male with episodes of slurred speech. COMPARISON: None. TECHNIQUE: CT brain without contrast. CT angiography of the head and neck following dynamic bolus of intravenous contrast. 3D reformatted reconstructions were performed on an independent workstation. This exam was performed according to our departmental dose optimization program which includes use of automated exposure control, adjustment of the mA and/or kV according to patient size and/or use of iterative reconstruction technique. FINDINGS: CTA neck: Patent flow opacification of the aortic arch origin right brachiocephalic, left common carotid, and left subclavian arteries. The bilateral vertebral artery origins are normal. Patent flow opacification through the bilateral common carotid arteries, carotid bifurcations, cervical internal/external carotid, and vertebral arteries. CTA brain: Patent flow opacification through anterior circulation (bilateral petrous/cavernous/supraclinoid internal carotid arteries, anterior and middle cerebral arteries), posterior circulation (vertebral-basilar, posterior-inferior cerebellar, anterior-inferior cerebellar, superior cerebellar, and posterior cerebral arteries), and distal intracranial vasculature. Patent flow opacification through an incomplete [id number] with a patent anterior communicating artery and bilateral absent posterior communicating arteries. origin of the right posterior cerebral artery are Normal superficial and deep intracranial venous drainage. No evidence of occlusive thrombus, dissection, or vascular malformation. CT brain noncontrast: The ventricles, sulci, and cisterns are symmetric and unremarkable. The nuñez-white matter differentiation is normal. There is no mass effect, midline shift, intra- or extra-axial fluid collection/acute hemorrhage, or abnormal contrast enhancement. Left orbital prosthetic. IMPRESSION: 1. No acute intracranial abnormalities. 2. CT is insensitive for early evaluation of acute stroke. If there is clinical concern for acute ischemia, an MRI may be considered. 3. Patent enhancement of the intracranial circulation. 4. Patent enhancement of the cervical vasculature without significant stenosis by NASCET criteria.. 00:27 Differential Diagnosis altered mental status, sepsis, flu. Data reviewed: vital signs, sp4 nurses notes, EMS record, diagnostic data from outside facility, old medical records, lab test result(s), EKG, radiologic studies, CT scan, plain films. Consideration of Admission/Observation Patient was admitted/placed on observation. Escalation of care including admission/observation considered. Management of patient was discussed with the following: Hospitalist: Discussed with admission hospitalist . Medical Records Auditor: Neurologist Dr. Diaz. 00:29 ED course: EXAM DESCRIPTION: Susi Single View04/21/2023 10:15 pm CLINICAL HISTORY: sp4 CHEST PAIN COMPARISON: Chest Single View dated 05/09/2018; Abdomen 1 View (KUB) dated 02/28/2016; Chest Single View dated 02/04/2016 TECHNIQUE: Portable AP view of the chest. FINDINGS: The lungs are clear. Left basilar atelectasis. Poor penetration particularly at the left base limits evaluation. No pneumothorax or effusion. The cardiomediastinal contours are unremarkable. IMPRESSION: No acute cardiopulmonary process. . 04/21 21:51 Order name: Glucose, Ancillary Testing; Complete Time: 00:07 EDMS 04/21 21:52 Order name: Basic Metabolic Panel; Complete Time: 00:07 sp4 04/21 21:52 Order name: CBC with Diff; Complete Time: 00:07 sp4 04/21 21:52 Order name: D-Dimer; Complete Time: 00:07 4 04/21 21:52 Order name: LFT's; Complete Time: 00:07 sp4 04/21 21:52 Order name: Magnesium; Complete Time: 00:07 sp4 04/21 21:52 Order name: NT PRO-BNP; Complete Time: 00:07 4 04/21 21:52 Order name: PT-INR; Complete Time: 00:07 sp4 04/21 21:52 Order name: Troponin HS; Complete Time: 00:07 sp4 04/22 00:29 Order name: Influenza Screen (a \T\ B) 4 04/22 00:29 Order name: SARS RAPID 4 04/22 00:48 Order name: Urinalysis w/ reflexes EDMS 04/22 00:48 Order name: Basic Metabolic Panel EDMS 04/22 00:48 Order name: Basic Metabolic Panel EDMS 04/22 00:48 Order name: Basic Metabolic Panel EDMS 04/22 00:48 Order name: CBC with Automated Diff EDMS 04/22 00:48 Order name: CBC with Automated Diff EDMS 04/22 00:48 Order name: CBC with Automated Diff EDMS 04/22 00:48 Order name: Lipid Profile EDMS 04/22 00:48 Order name: Lipid Profile EDMS 04/22 00:48 Order name: Lipid Profile EDMS 04/22 00:48 Order name: Magnesium EDMS 04/22 00:48 Order name: Magnesium EDMS 04/22 00:48 Order name: Magnesium EDMS 04/22 00:48 Order name: Protime (+INR) EDMS 04/22 00:48 Order name: Protime (+INR) [facility] 04/22 00:48 Order name: Protime (+INR) [facility] 04/22 02:06 Order name: Hemoglobin A1c [facility] 04/22 03:25 Order name: SARS-COV-2 RT PCR [facility] 04/21 21:52 Order name: XRAY Chest (1 view); Complete Time: 00:07 [facility] 04/21 21:53 Order name: CT Head Brain wo Cont [facility] 04/21 21:54 Order name: CT Neck Angio [facility] 04/21 21:54 Order name: CT Head Angio [facility] 04/22 08:34 Order name: MRI [facility] 04/21 21:52 Order name: EKG; Complete Time: 21:53 [facility] 04/22 00:48 Order name: CONS Physician Consult [facility] 04/22 00:48 Order name: Regular [facility] 04/21 21:52 Order name: Cardiac monitoring; Complete Time: 21:53 [facility] 04/21 21:52 Order name: EKG - Nurse/Tech; Complete Time: 21:53 [facility] 04/21 21:52 Order name: IV Saline Lock; Complete Time: 21:53 [facility] 04/21 21:52 Order name: Labs collected and sent; Complete Time: 21:53 [facility] 04/21 21:52 Order name: O2 Per Protocol; Complete Time: 21:53 [facility] 04/21 21:52 Order name: O2 Sat Monitoring; Complete Time: 21:53 sp4 EC:20 Rate is 64 beats/min. Rhythm is regular, Normal Sinus Rhythm. QRS [place] is Normal. NE sp4 interval is normal. QRS interval is normal. QT interval is normal. T waves are Normal. No ST changes noted. Clinical impression: Normal ECG. Interpreted by me. Administered Medications: 04/21 22:15 Drug: Aspirin PO Chewable Tablet 324 mg Route: PO; ll3 22:15 Drug: NS 0.9% IV 1000 ml Route: IV; Rate: 125 ml/hr; Site: right antecubital; ll3 22:15 Drug: Acetaminophen PO 1000 mg Route: PO; ll3 04/22 00:21 Drug: Clopidogrel PO 75 mg Route: PO; ll3 00:21 Drug: foLIC Acid PO 1 mg Route: PO; ll3 Disposition Summary: 04/22/23 00:33 Hospitalization Ordered Hospitalization Status: Inpatient Admission sp4 Provider: Tato Sierra sp4 Condition: Stable sp4 Problem: new sp4 Symptoms: have improved sp4 Bed/Room Type: Standard sp4 Location: Telemetry/MedSurg (Inpatient)(04/22/23 09:04) ds4 Room Assignment: 215(04/22/23 09:04) ds4 Diagnosis - Transient cerebral ischemic attack, unspecified sp4 - Atypical chest pain, periodic dysarthria, TIA sp4 Forms: - Medication Reconciliation Form sp4 - SBAR form sp4 Signatures: Dispatcher [employer] EDMS Lal Samuel ds4 Julissa Dewey RN RN cg Laurie Ortez RN RN ll3 Arlene Reynolds RN RN vc1 Yoni Packer MD MD sp4 Corrections: (The following items were deleted from the chart) 00:54 00:33 Telemetry/MedSurg (Inpatient) sp4 cg 00:54 00:33 sp4 cg 09:04 00:54 [facility] ER HOLD cg ds4 09:04 00:54 ERHOLD- cg ds4
--- NOTE | 2023-04-22 00:34 | ER ---
Nurse's Notes [facility] Name: Ney Marquez Age: 57 yrs Sex: Male : 1965 Arrival Date: 04/21/2023 Time: 21:28 Bed 16 Private MD: Diagnosis: Transient cerebral ischemic attack, unspecified;Atypical chest pain, periodic dysarthria, TIA Presentation: 04/21 21:41 Chief complaint: EMS states: We were toned out for chest pain with numbness and vc1 tingling to left arm along with some slurred speech. Coronavirus screen: Vaccine status: Patient reports receiving the 2nd dose of the covid vaccine. plus booster; Moderna Client denies travel out of the [place] in the last 14 days. At this time, the client does not indicate any symptoms associated with coronavirus-19. Ebola Screen: Patient negative for fever greater than or equal to 101.5 degrees Fahrenheit, and additional compatible Ebola Virus Disease symptoms Patient denies exposure to infectious person. Patient denies travel to an Ebola-affected area in the 21 days before illness onset. No symptoms or risks identified at this time. Initial Sepsis Screen: Does the patient meet any 2 criteria? No. Patient's initial sepsis screen is negative. Does the patient have a suspected source of infection? No. Patient's initial sepsis screen is negative. Risk Assessment: Do you want to hurt yourself or someone else? Patient reports no desire to harm self or others. Onset of symptoms was April 18, 2023. 21:41 Method Of Arrival: EMS: [facility] vc1 21:41 Acuity: ANUJA 2 vc1 Triage Assessment: 21:46 General: Appears uncomfortable, Behavior is calm, cooperative, appropriate for age. vc1 Pain: Complains of pain in anterior aspect of left upper chest Pain does not radiate. EENT: No deficits noted. No signs and/or symptoms were reported regarding the EENT system. Neuro: Level of Consciousness is awake, alert, obeys commands, Oriented to person, place, time, situation, Appropriate for age Radio Station Operator are equal bilaterally Moves all extremities. Speech is slurred, Facial symmetry appears normal, Reports numbness in left arm and left leg. Cardiovascular: Reports palpitations. Cardiovascular: Chest pain is described as mild, quality is pressure, is located in left chest wall began suddenly, 30 minutes prior to arrival episodes are continuous. Respiratory: Airway is patent Respiratory effort is even, unlabored, Respiratory pattern is regular, symmetrical. GI: No deficits noted. No signs and/or symptoms were reported involving the gastrointestinal system. : No deficits noted. No signs and/or symptoms were reported regarding the genitourinary system. Derm: No deficits noted. No signs and/or symptoms reported regarding the dermatologic system. Musculoskeletal: No deficits noted. No signs and/or symptoms reported regarding the musculoskeletal system. Historical: - Allergies: 21:43 Aleve; vc1 - Home Meds: 21:43 carvedilol oral [Active]; Lisinopril Oral [Active]; vc1 - PMHx: 21:43 Atrial Fib; Hypertension; Kidney stones; swelling of legs; missing left eye; vc1 - PSHx: 21:43 Left eye removed; vc1 - Immunization history:: Client reports receiving the 2nd dose of the Covid vaccine. - Social history:: Smoking status: Patient denies any tobacco usage or history of. - Family history:: not pertinent. Screenin:45 [facility] ED Fall Risk Assessment (Adult) History of falling in the last 3 months, vc1 including since admission No falls in past 3 months (0 pts) Confusion or Disorientation No (0 pts) Intoxicated or Sedated No (0 pts) Impaired Gait No (0 pts) Mobility Assist Device Used No (0 pt) Altered Elimination No (0 pt) Score/Fall Risk Level 0 - 2 = Low Risk Oriented to surroundings, Maintained a safe environment, Educated pt \T\ family on fall prevention, incl call for assistance when getting out of bed. Abuse screen: Denies threats or abuse. Abuse screen: Denies threats or abuse. Nutritional screening: No deficits noted. Tuberculosis screening: No symptoms or risk factors identified. Assessment: 23:45 Reassessment: Patient and/or family updated on plan of care and expected duration. Pain ll3 level reassessed. Patient is alert, oriented x 3, equal unlabored respirations, skin warm/dry/pink. Patient states feeling better. Vital Signs: 21:41 Pulse 71; Resp 18; Temp 97.7; Pulse Ox 95% ; Weight 113.4 kg; Height 5 ft. 10 in. ; vc1 Pain 4/10; 21:52 BP 135 / 86; vc1 23:45 BP 136 / 100; Pulse 60; Resp 16; Pulse Ox 98% on R/A; ll3 04/22 01:20 BP 142 / 94; Pulse 57; Resp 16; Pulse Ox 96% on R/A; ll3 04/21 21:41 Body Mass Index 35.87 (113.40 kg, 177.8 cm) vc1 04/21 21:41 Pain Scale: Adult vc1 [place] Coma Score: 00:27 Eye Response: spontaneous(4). Motor Response: obeys commands(6). Verbal Response: sp4 oriented(5). Total: 15. ED Course: 04/21 21:41 Patient arrived in ED. vc1 21:43 Triage completed. vc1 21:45 Arm band placed on left wrist. vc1 21:45 Patient has correct armband on for positive identification. Placed in gown. Bed in low vc1 position. Call light in reach. Client placed on continuous cardiac and pulse oximetry monitoring. NIBP monitoring applied. 21:46 EKG completed in triage. Results shown to MD. ll3 21:51 Yoni Packer MD is Attending Physician. sp4 22:17 XRAY Chest (1 view) In Process Unspecified. EDMS 22:58 CT Head Brain wo Cont In Process Unspecified. EDMS 23:00 CT Neck Angio In Process Unspecified. EDMS 23:01 CT Head Angio In Process Unspecified. EDMS 07 00:32 Tato Sierra MD is Hospitalizing Provider. sp4 07:00 Report received from Laurie Ortez RN. kc6 09:35 No provider procedures requiring assistance completed. Patient admitted, IV remains in kc6 place. Administered Medications: 04/21 22:15 Drug: Aspirin PO Chewable Tablet 324 mg Route: PO; ll3 22:15 Drug: NS 0.9% IV 1000 ml Route: IV; Rate: 125 ml/hr; Site: right antecubital; ll3 22:15 Drug: Acetaminophen PO 1000 mg Route: PO; ll3 04/22 00:21 Drug: Clopidogrel PO 75 mg Route: PO; ll3 00:21 Drug: foLIC Acid PO 1 mg Route: PO; ll3 Medication: 04/21 21:46 VIS not applicable for this client. vc1 Outcome: 04/22 00:33 Decision to Hospitalize by Provider. sp4 09:35 Admitted to Med/surg accompanied by nurse, via wheelchair, room 215, with chart, Report tia called to CHRISTIAN Solano 09:35 Condition: improved 09:35 Instructed on the need for admit. 09:36 Patient left the ED. tia Signatures: Dispatcher [employer] EDLaurie Michael RN RN ll3 Arlene Reynolds RN RN 1 Daly Batres RN RN kc6 Yoni Packer MD MD sp4 Corrections: (The following items were deleted from the chart) 00:12 00:12 Reassessment: Patient and/or family updated on plan of care and expected ll3 duration. Pain level reassessed. Patient is alert, oriented x 3, equal unlabored respirations, skin warm/dry/pink. Patient states feeling better. ll3
[2023-04-22] MEDS ORDERED: ACETAMINOPHEN 500 MG TAB PO PRN (00:41)
[2023-04-22] MEDS ORDERED: ONDANSETRON 4 MG/2 ML VIAL IV PRN (00:41)
--- NOTE | 2023-04-22 00:51 | P.HP ---
Certification for Inpatient Patient admitted to: Inpatient With expected LOS: <2 Midnights Patient will require the following post-hospital care: None Practitioner: I am a practitioner with admitting privileges, knowledge of patient current condition, hospital course, and medical plan of care. Services: Services provided to patient in accordance with Admission requirements found in Title 42 Section 412.3 of the Code of Federal Regulations Patient History Date of Service: 04/22/23 Reason for admission: TIA History of Present Illness: 57 year old male with past medical history of hypertension, atrial fibrillation, kidney stones, sleep apnea who presented to the emergency department via EMS with concerns of facial drawing, slurred speech and left arm heaviness. He reports symptoms started around 4p, and resolved after arriving to the emergency department. He Denies prior history of HLD, TIA, CVA, or diabetes. He denies weakness of extremities, no trouble swallowing, he denies use of anti- coagulation. ER course Lab evaluation unremarkable, BG 123, CTA head, Neck, CXR no acute abnormalities. EKG NSR in complete RBBB, no stemi, Neuro consulted in ED, plan to have MRI in am, speech, PT eval Allergies naproxen [From Aleve] Allergy (Verified 02/04/16 16:12) Anaphylaxis Home Medications: Gabapentin 300 mg PO TIDP PRN 10/20/20 Tamsulosin [Flomax*] 0.4 mg PO DAILY 10/20/20 Atorvastatin Calcium 10 mg PO DAILY 12/04/22 Carvedilol [Coreg] 25 mg PO BEDTIME 12/04/22 Furosemide 20 mg PO DAILY PRN 12/04/22 Epinephrine [Epipen] 0.3 mg IJ PRN PRN #2 syr 12/05/22 Famotidine [Pepcid] 20 mg PO BID #60 tab 12/05/22 predniSONE [Deltasone] 20 mg PO BID #11 tab 12/05/22 - Past Medical/Surgical History Diabetic: Yes -: Diabetes mellitus type 2 -: Hypertension -: Kidney stones -: Sleep apnea -: HX Atrial Fibrillation -: Nephrostomy placement -: Kidney stent -: 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 Psychosocial/ Personal History: 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 - Social History Smoking Status: Never smoker Alcohol use: Yes CD- Drugs: No Caffeine use: Yes Review of Systems 10-point ROS is otherwise unremarkable Physical Examination - Physical Exam General: Alert, In no apparent distress, Oriented x3, Other (Left eye enucleation, with eye patch) HEENT: Atraumatic, Normocephalic, PERRLA Neck: Supple, 2+ carotid pulse no bruit Respiratory: Clear to auscultation bilaterally, Normal air movement Cardiovascular: Normal pulses, Regular rate/rhythm, Edema (+2 BLE) Capillary refill: <2 Seconds Gastrointestinal: Normal bowel sounds, No tenderness Musculoskeletal: No clubbing, No swelling Integumentary: No rashes, No breakdown Neurological: Normal speech, Normal strength at 5/5 x4 extr, Sensation intact, Cranial nerves 3-12 intact - Studies Laboratory Data (last 24 hrs) 04/21/23 21:50: PT 11.1, INR 1.01 04/21/23 21:50: WBC 8.90, Hgb 13.6, Hct 40.6, Plt Count 199 04/21/23 21:50: Sodium 136, Potassium 3.5, BUN 28 H, Creatinine 0.95, Glucose 123 H, Magnesium 2.1, Total Bilirubin 0.5, AST 19, ALT 35, Alkaline Phosphatase 88 Assessment and Plan - Plan Assessment/Plan TIA HTN-unkn controll SHAYLA Hx atrial fib Nephrolithasis Left eye enucleartion DM type 2-ukn control DVT prophylaxis Assessment/Plan -TIA Neuro consult, MRI in AM, CT Head/Neck negative,fall precautions PT. Speech eval in am, plavix asa, lipid panel in am -HTN-Resume home meds, prn antihypertensives -SHAYLA-02 2L HS, -Hx atrial fib-resume home meds, tele -HX Nephrolithasis -Left eye enucleartion -DM type 2- AIC in AM (pt denies hx DM) Diet card Full code DVT proplaxis Lovenox Discharge Plan: Home Plan to discharge in: 48 Hours - Advance Directives Does patient have a Living Will: No Does patient have a Durable POA for Healthcare: No - Code Status/Comfort Care Code Status Assessed: Yes Code Status: Full Code Physician Review: Patient Assessed, Agree with Above Assessment and Plan Critical Care: Yes Time Spent Managing Pts Care (In Minutes): 55
[2023-04-22 02:51] VITALS: BMI 35.9
[2023-04-22 03:47] LABS: Protime INR 0.99
[2023-04-22 03:50] LABS: Absolute Lymphocytes (CBC) 2.2 K/uL (0.7-4.9); Lymphocytes % 28.9 % (15.3-44.8); MCV 91.6 fL (80-100); MPV 8.9 fL (7.6-11.3); RBC Red Blood Cell Count 4.25 M/uL (4.33-5.43)
[2023-04-22 04:04] LABS: Magnesium 2.1 mg/dL (1.6-2.4); Potassium 3.3 mEq/L (3.5-5.1)
[2023-04-22] MEDS ORDERED: ASPIRIN 325 MG TAB ONE (07:58)
[2023-04-22] MEDS ORDERED: POTASSIUM CL SA 10 MEQ TAB PO ONE (07:58)
[2023-04-22] MEDS ORDERED: ENOXAPARIN 40 MG/0.4 ML SQ ONE (07:59)
--- NOTE | 2023-04-22 08:34 | RAD REPORT ---
EXAM DESCRIPTION: MRI - Brain W/Wo Cont - 04/22/2023 7:47 am CLINICAL HISTORY: TIA COMPARISON: Noncontrast head CT and CT angiogram of the previous day. TECHNIQUE: Multiplanar multisequence MRI of the brain performed before and after intravenous adminis tration of gadolinium contrast (MultiHance). FINDINGS: No evidence of acute infarct or other diffusion signal abnormality. No evidence of acute intracranial hemorrhage or abnormal extra-axial fluid collections. Mild diffuse parenchymal volume loss. Ventricular caliber otherwise within normal for age. Midline st ructures are unremarkable. Subtle subcortical and deep white matter T2/FLAIR hyperintensities, nonspecific, but suggestive of ch ronic small vessel ischemic changes. No mass effect or midline shift. No abnormal enhancement. Major vascular flow voids are preserved. Mastoid air cells and paranasal sinuses are clear. IMPRESSION: No acute intracranial process. No evidence of ventriculomegaly, mass effect, or abnormal enhancement.
[2023-04-22] MEDS: FOLIC ACID 1 MG TABLET PO SCH (08:58)
[2023-04-22] MEDS: ENOXAPARIN 40 MG/0.4 ML SQ SCH (08:58)
[2023-04-22] MEDS: ASPIRIN 325 MG TAB PO SCH (08:58)
--- NOTE | 2023-04-22 13:08 | RAD REPORT ---
EXAM DESCRIPTION: CT - Neck Angio - 04/22/2023 12:13 am CLINICAL HISTORY: 57-year-old male with episodes of slurred speech. COMPARISON: None. TECHNIQUE: CT brain without contrast. CT angiography of the head and neck following dynamic bolus of intravenous contrast. 3D reformatted r econstructions were performed on an independent workstation. This exam was performed according to our departmental dose optimization program which includes use of automated exposure control, adjustment of the mA and/or kV according to patient size and/or use of iterative reconstruction technique. FINDINGS: CTA neck: Patent flow opacification of the aortic arch origin right brachiocephalic, left common carotid, and l eft subclavian arteries. The bilateral vertebral artery origins are normal. Patent flow opacification through the bilateral common carotid arteries, carotid bifurcations, cervic al internal/external carotid, and vertebral arteries. CTA brain: Patent flow opacification through anterior circulation (bilateral petrous/cavernous/supraclinoid inte rnal carotid arteries, anterior and middle cerebral arteries), posterior circulation (vertebral-basil ar, posterior-inferior cerebellar, anterior-inferior cerebellar, superior cerebellar, and posterior c erebral arteries), and distal intracranial vasculature. Patent flow opacification through an incomplete [id number] with a patent anterior communicating artery and bilateral absent posterior communicating arteries. origin of the right posterior ce rebral artery are Normal superficial and deep intracranial venous drainage. No evidence of occlusive thrombus, dissection, or vascular malformation. CT brain noncontrast: The ventricles, sulci, and cisterns are symmetric and unremarkable. The nuñez-white matter differentia tion is normal. There is no mass effect, midline shift, intra- or extra-axial fluid collection/acute hemorrhage, or abnormal contrast enhancement. Left orbital prosthetic. IMPRESSION: 1. No acute intracranial abnormalities. 2. CT is insensitive for early evaluation of acute stroke. If there is clinical concern for acute i schemia, an MRI may be considered. 3. Patent enhancement of the intracranial circulation. 4. Patent enhancement of the cervical vasculature without significant stenosis by NASCET criteria. Electronically signed by: Sofie House MD 04/21/2023 11:52 PM CDT Due to temporary technical issues with the PACS/Fluency reporting system, reports are being signed by the in house radiologist without review as a courtesy to ensure prompt reporting. The interpreting r arpitaiologist is fully responsible for the content of the report.
--- NOTE | 2023-04-22 13:13 | RAD REPORT ---
EXAM DESCRIPTION: CT - Head angio - 04/22/2023 12:12 am CLINICAL HISTORY: 57-year-old male with episodes of slurred speech. COMPARISON: None. TECHNIQUE: CT brain without contrast. CT angiography of the head and neck following dynamic bolus of intravenous contrast. 3D reformatted r econstructions were performed on an independent workstation. This exam was performed according to our departmental dose optimization program which includes use of automated exposure control, adjustment of the mA and/or kV according to patient size and/or use of iterative reconstruction technique. FINDINGS: CTA neck: Patent flow opacification of the aortic arch origin right brachiocephalic, left common carotid, and l eft subclavian arteries. The bilateral vertebral artery origins are normal. Patent flow opacification through the bilateral common carotid arteries, carotid bifurcations, cervic al internal/external carotid, and vertebral arteries. CTA brain: Patent flow opacification through anterior circulation (bilateral petrous/cavernous/supraclinoid inte rnal carotid arteries, anterior and middle cerebral arteries), posterior circulation (vertebral-basil ar, posterior-inferior cerebellar, anterior-inferior cerebellar, superior cerebellar, and posterior c erebral arteries), and distal intracranial vasculature. Patent flow opacification through an incomplete [id number] with a patent anterior communicating artery and bilateral absent posterior communicating arteries. origin of the right posterior ce rebral artery are Normal superficial and deep intracranial venous drainage. No evidence of occlusive thrombus, dissection, or vascular malformation. CT brain noncontrast: The ventricles, sulci, and cisterns are symmetric and unremarkable. The nuñez-white matter differentia tion is normal. There is no mass effect, midline shift, intra- or extra-axial fluid collection/acute hemorrhage, or abnormal contrast enhancement. Left orbital prosthetic. IMPRESSION: 1. No acute intracranial abnormalities. 2. CT is insensitive for early evaluation of acute stroke. If there is clinical concern for acute i schemia, an MRI may be considered. 3. Patent enhancement of the intracranial circulation. 4. Patent enhancement of the cervical vasculature without significant stenosis by NASCET criteria. Electronically signed by: Sofie House MD 04/21/2023 11:52 PM CDT Due to temporary technical issues with the PACS/Fluency reporting system, reports are being signed by the in house radiologist without review as a courtesy to ensure prompt reporting. The interpreting r arpitaiologist is fully responsible for the content of the report.
--- NOTE | 2023-04-22 13:15 | RAD REPORT ---
EXAM DESCRIPTION: CT - Head Brain Wo Cont - 04/22/2023 12:13 am CLINICAL HISTORY: 57-year-old male with episodes of slurred speech. COMPARISON: None. TECHNIQUE: CT brain without contrast. CT angiography of the head and neck following dynamic bolus of intravenous contrast. 3D reformatted r econstructions were performed on an independent workstation. This exam was performed according to our departmental dose optimization program which includes use of automated exposure control, adjustment of the mA and/or kV according to patient size and/or use of iterative reconstruction technique. FINDINGS: CTA neck: Patent flow opacification of the aortic arch origin right brachiocephalic, left common carotid, and l eft subclavian arteries. The bilateral vertebral artery origins are normal. Patent flow opacification through the bilateral common carotid arteries, carotid bifurcations, cervic al internal/external carotid, and vertebral arteries. CTA brain: Patent flow opacification through anterior circulation (bilateral petrous/cavernous/supraclinoid inte rnal carotid arteries, anterior and middle cerebral arteries), posterior circulation (vertebral-basil ar, posterior-inferior cerebellar, anterior-inferior cerebellar, superior cerebellar, and posterior c erebral arteries), and distal intracranial vasculature. Patent flow opacification through an incomplete [id number] with a patent anterior communicating artery and bilateral absent posterior communicating arteries. origin of the right posterior ce rebral artery are Normal superficial and deep intracranial venous drainage. No evidence of occlusive thrombus, dissection, or vascular malformation. CT brain noncontrast: The ventricles, sulci, and cisterns are symmetric and unremarkable. The nuñez-white matter differentia tion is normal. There is no mass effect, midline shift, intra- or extra-axial fluid collection/acute hemorrhage, or abnormal contrast enhancement. Left orbital prosthetic. IMPRESSION: 1. No acute intracranial abnormalities. 2. CT is insensitive for early evaluation of acute stroke. If there is clinical concern for acute i schemia, an MRI may be considered. 3. Patent enhancement of the intracranial circulation. 4. Patent enhancement of the cervical vasculature without significant stenosis by NASCET criteria. Electronically signed by: Sofie House MD 04/21/2023 11:52 PM CDT Due to temporary technical issues with the PACS/Fluency reporting system, reports are being signed by the in house radiologist without review as a courtesy to ensure prompt reporting. The interpreting r adiologist is fully responsible for the content of the report.
--- NOTE | 2023-04-22 17:03 | EKG ---
Test Date: 2023-04-21 Test Time: 21:40:31 Manager Rn Case: LL MEASUREMENT RESULTS: Intervals: Rate: 64 DC: 186 QRSD: 114 QT: 414 QTc: 427 [place]: P: 48 DC: 186 QRS: -22 T: 32 INTERPRETIVE STATEMENTS: Normal sinus rhythm Incomplete right bundle branch block Minimal voltage criteria for LVH, may be normal variant Borderline ECG Compared to ECG 12/04/2022 03:56:42 Left ventricular hypertrophy now present Sinus bradycardia no longer present Electronically Signed On 04-22-23 17:02:26 CDT by Gio Gallegos
[2023-04-23 03:51] LABS: Absolute Lymphocytes (CBC) 1.9 K/uL (0.7-4.9); Hematocrit 41.3 % (39.6-49.0); Lymphocytes % 26.3 % (15.3-44.8); MCV 92.1 fL (80-100); MPV 8.9 fL (7.6-11.3); RBC Red Blood Cell Count 4.48 M/uL (4.33-5.43)
[2023-04-23 04:04] VITALS: O2SAT 97
[2023-04-23 04:14] LABS: Potassium 3.7 mEq/L (3.5-5.1)
[2023-04-23 04:46] LABS: Protime INR 0.97
[2023-04-23 08:57] VITALS: TEMP 97.2
[2023-04-23] MEDS: ASPIRIN 325 MG TAB PO SCH (09:17)
[2023-04-23] MEDS: FOLIC ACID 1 MG TABLET PO SCH (09:17)
[2023-04-23] MEDS: ENOXAPARIN 40 MG/0.4 ML SQ SCH (09:18)
[2023-04-23 09:52] LABS: Specific Gravity 1.022 (1.005-1.030); Transitional Epithelial <5 /HPF (None Seen); Urine Bacteria 20-50 /HPF (<20); Urine Bilirubin NEGATIVE (Negative); Urine Blood Negative (Negative); Urine Clarity Extremely Turbid (Clear); Urine Color Light-Yellow (Yellow); Urine Glucose NEGATIVE (Negative); Urine Mucus 2+ /HPF (None Seen); Urine Protein NEGATIVE (Negative); Urine RBC <5 /HPF (None Seen); Urine Urobilinogen Normal (Normal)
[2023-04-23 16:07] VITALS: BP 145/85
--- NOTE | 2023-04-23 18:50 | P.DS ---
Admission Date: 04/22/23 Discharge Date: 04/23/23 Disposition: ROUTINE DISCHARGE Discharge Condition: FAIR Reason for Admission: TIA - Problems (1) TIA (transient ischemic attack) Current Visit: Yes Status: Acute (2) Obstructive sleep apnea Current Visit: Yes Status: Acute (3) Atrial fibrillation Current Visit: No Status: Chronic Qualifiers: Atrial fibrillation type: paroxysmal Qualified Code(s): I48.0 - Paroxysmal atrial fibrillation (4) Hypertension Current Visit: No Status: Chronic Qualifiers: Hypertension type: primary hypertension Qualified Code(s): I10 - Essential (primary) hypertension (5) Type 2 diabetes mellitus Current Visit: No Status: Chronic Qualifiers: Diabetes mellitus [facility] insulin use: without assistant terminal manager use Diabetes mellitus complication status: with hyperglycemia Qualified Code(s): E11.65 - Type 2 diabetes mellitus with hyperglycemia Brief History of Present Illness: 57 year old male with past medical history of hypertension, atrial fibrillation, kidney stones, sleep apnea who presented to the emergency department via EMS with concerns of facial drawing, slurred speech and left arm heaviness. He reporteds symptoms were brief and resolved after arriving to the emergency department. He denies prior history of HLD, TIA, CVA, or diabetes. He denied weakness of extremities, no trouble swallowing, he denies use of anti- coagulation. ER course Lab evaluation unremarkable, BG 123, CTA head, Neck, CXR no acute abnormalities. EKG NSR in complete RBBB, no stemi, Neuro consulted in ED, planned to have MRI in am, speech, PT eval. Patient hospitalized for further management. Hospital Course: Patient placed on observation on the medical floor. He was asymptomatic during the hospital stay. He had no neurologic symptoms. MRI of the brain showed no acute stroke. Lipid profile showed elevated triglyceride, LDL within normal limit. Patient has been on low-dose Lipitor which has been increased to 40 mg daily. He is also started on folic acid and aspirin. Echocardiogram done is unremarkable, no clots. Noted recorded history of atrial fibrillation which patient denies. Case discussed with Dr. Diaz who determined paroxysmal atrial fibrillation is possible and recommended full anticoagulation with Eliquis. Patient has been informed to follow-up with cardiology for arrangement for event monitor to confirm diagnosis of atrial fibrillation. Vital Signs/Physical Exam: Temp Pulse Resp BP Pulse Ox 97.2 F 62 16 145/85 H 98 04/23/23 16:00 04/23/23 16:00 04/23/23 16:00 04/23/23 16:00 04/23/23 16:00 General: Alert, In no apparent distress, Oriented x3 HEENT: Mucous membr. moist/pink Neck: Supple, JVD not distended Respiratory: Clear to auscultation bilaterally, Normal air movement Cardiovascular: No edema, Regular rate/rhythm, Normal S1 S2 Gastrointestinal: Normal bowel sounds, Soft and benign, Non-distended, No tenderness Musculoskeletal: No swelling Integumentary: No rashes Neurological: Normal speech, Normal strength at 5/5 x4 extr, Cranial nerves 3-12 intact Laboratory Data at Discharge: WBC 7.40 thou/uL (4.3-10.9) 04/23/23 02:16 Hgb 13.6 g/dL (13.6-17.9) 04/23/23 02:16 Hct 41.3 % (39.6-49.0) 04/23/23 02:16 Plt Count 175 thou/uL (152-406) 04/23/23 02:16 PT 11.6 SECONDS (9.2-12.8) 04/23/23 02:16 INR 0.97 04/23/23 02:16 Sodium 137 mEq/L (136-145) 04/23/23 02:16 Potassium 3.7 mEq/L (3.5-5.1) 04/23/23 02:16 BUN 17 mg/dL (7-18) 04/23/23 02:16 Creatinine 0.72 mg/dL (0.70-1.30) 04/23/23 02:16 Glucose 97 mg/dL (74-106) 04/23/23 02:16 Magnesium 2.0 mg/dL (1.6-2.4) 04/23/23 02:16 Total Bilirubin 0.5 mg/dL (0.2-1.0) 04/21/23 21:50 AST 19 U/L (15-37) 04/21/23 21:50 ALT 35 U/L (16-61) 04/21/23 21:50 Alkaline Phosphatase 88 U/L (45-117) 04/21/23 21:50 Triglycerides 187 mg/dL (<150) H 04/23/23 02:16 Cholesterol 165 mg/dL (<200) 04/23/23 02:16 HDL Cholesterol 34 mg/dL (40-60) L 04/23/23 02:16 Cholesterol/HDL Ratio 4.85 04/23/23 02:16 Home Medications: Gabapentin 300 mg PO TIDP PRN 10/20/20 Tamsulosin [Flomax*] 0.4 mg PO DAILY 10/20/20 Carvedilol [Coreg] 25 mg PO BID 12/04/22 Furosemide 20 mg PO DAILY PRN 12/04/22 lisinopriL [Lisinopril] 20 mg PO BID 04/22/23 Apixaban [Eliquis] 5 mg PO BID #60 tab 04/23/23 Aspirin [Aspirin EC 81 MG] 81 mg PO DAILY #30 tab 04/23/23 Atorvastatin Calcium [Lipitor] 40 mg PO BEDTIME #30 tab 04/23/23 Folic Acid 1 mg PO DAILY #30 tab 04/23/23 New Medications: Aspirin [Aspirin EC 81 MG] 81 mg PO DAILY #30 tab Apixaban [Eliquis] 5 mg PO BID #60 tab Folic Acid 1 mg PO DAILY #30 tab Atorvastatin Calcium [Lipitor] 40 mg PO BEDTIME #30 tab Diet: ADA Activity: Ad mariama Followup: Gio Gallegos MD [ACTIVE - CAN ADMIT] - 1-2 Weeks (For evaluation for event monitor placement.) Time spent managing pt's care (in minutes): 33
--- NOTE | 2023-04-24 08:48 | ECHO ---
HEIGHT: 5 ft 10 in WEIGHT: 250 lb 0.067 oz DATE OF STUDY: 04/23/[address]: Graeme Moreno MD 2-DIMENSIONAL: YES M.MODE: YES DOPPLER: YES COLOR FLOW: YES TDS: NO PORTABLE: YES DEFINITY: NO BUBBLE STUDY: NO DIAGNOSIS: TRANSIENT ISCHEMIC ATTACK CARDIAC HISTORY: CATHERIZATION: SURGERY: PROSTHETIC VALVE: PACEMAKER: MEASUREMENTS (cm) DIASTOLIC (NORMALS) SYSTOLIC (NORMALS) IVSd 1.1 (0.6-1.2) LA Diam 3.4 (1.9-4.0) LVEF 60-65% LVIDd 3.8 (3.5-5.7) LVIDs 2.9 (2.0-3.5) %FS 26% LVPWd 1.3 (0.6-1.2) Ao Diam 3.6 (2.0-3.7) 2 DIMENSIONAL ASSESSMENT: RIGHT ATRIUM: NORMAL LEFT ATRIUM: NORMAL RIGHT VENTRICLE: NORMAL LEFT VENTRICLE: NORMAL TRICUSPID VALVE: MILD TR MITRAL VALVE: MILD MR PULMONIC VALVE: NORMAL AORTIC VALVE: NORMAL PERICARDIAL EFFUSION: NONE AORTIC ROOT: NORMAL LEFT VENTRICULAR WALL MOTION: NORMAL DOPPLER/COLOR FLOW: SEE BELOW COMMENTS: 1. NORMAL LEFT VENTRICULAR EJECTION FRACTION 60-65%. 2. NORMAL WALL MOTION. 3. MILD TRICUSPID REGURGITATION. 4. MILD MITRAL REGURGITATION. TECHNOLOGIST: Mignon URIARTE
== END 2023-04-23 20:30 | disposition home or self-care (01) ==
LOC: ER 21:28 → ERHOLD 04-22 00:40 → INTOOBSV 04-22 00:40 → 2ND 04-22 09:22
PROVIDERS: ADMIT Internal Medicine; ATTEND Internal Medicine
DX: G45.9 Transient cerebral ischemic attack, unspecified (principal); G47.33 Obstructive sleep apnea (adult) (pediatric); I48.0 Paroxysmal atrial fibrillation; I10 Essential (primary) hypertension; E11.9 Type 2 diabetes mellitus without complications; Z20.822 Contact with and (suspected) exposure to COVID-19
CPT/HCPCS: 93005; 93306; 85025 ×3; 81001; 80048 ×3; 36415 ×2; 83735 ×3; 85610 ×3; 80061 ×2; 82947; 85379; 80076; 83036; 84484; 83880; 87635; 87804 ×2; 70450; 70496; 70498; 71045; 70553; 92523; 97161; 99285; 94660; Q9967; A9577; J1650 ×2; J7030; G0378